=== PATIENT | male | born 1980 | race Caucasian/White ===

== ENCOUNTER 2019-08-16 16:25 | Inpatient (IN) ==
[2019-08-16] MEDS ORDERED: IOPAMIDOL 100 ML BOTTLE IV ONE (16:26)
[2019-08-16] MEDS ORDERED: HYDROmorphone 2 MG/ML VIAL IV ONE (16:54)
[2019-08-16] MEDS ORDERED: 0.9 % SODIUM CHLORIDE 1,000 ML IV ONE (16:54)
[2019-08-16] MEDS ORDERED: ONDANSETRON 4 MG/2 ML VIAL IV ONE ×3 (16:55→19:04)
--- NOTE | 2019-08-16 16:58 | Emergency Department Note ---
Abdominal Pain HPI - General Chief Complaint: Abdominal Pain Stated Complaint: Diverticulitis Time Seen by Provider: 08/16/19 16:51 Source: patient, family Mode of arrival: ambulatory Limitations: no limitations - History of Present Illness HPI Narrative: Patient is a 39-year-old male that comes in the emergency department today by private vehicle. Patient was seen at [facility] August 10, 2019. Patient had a CT scan that showed moderate diverticulitis of the sigmoid colon. On August 10, 2019 patient's white count was 19,000. He was given IV fluids for hydration, IV Dilaudid for pain, IV Zofran for nausea, and discharged from the emergency department with oral Augmentin. Patient reports that he has been taking the Augmentin and hydrocodone for pain at home, and feels that his symptoms are worsening with abdominal pain that he describes as sharp and "my intestines feel like they're going to explode". Patient reports h aving mucoid bloody stools. Patient has had tachycardia. He denies any chest pain, shortness breath, difficulty breathing. Patient rates his pain today 10 out of 10 on a 0-10 numerical pain scale. Patient is not sure as if he has had any fevers at home, but he has felt chilled at times. - Related Data Home Medications Medication Instructions Recorded Confirmed No Known Home Meds 08/16/19 08/16/19 Allergies Allergy/AdvReac Type Severity Reaction Status Date / Time morphine Allergy Severe Rash, Verified 10/02/17 15:16 throat swelling Review of Systems All systems ED: reviewed and negative except as stated. Constitutional: Reports: as per HPI, chills. Denies: fever Eyes: Denies: vision change ENT ED: Denies: ear pain, throat pain Cardiovascular: Reports: as per HPI. Denies: chest pain Respiratory: Denies: cough, shortness of breath Gastrointestinal: Reports: as per HPI, abdominal pain, nausea, hematochezia. Denies: vomiting, diarrhea, constipation Genitourinary: Denies: dysuria, frequency Musculoskeletal: Denies: back pain, joint swelling Integumentary: Denies: rash, lesions Neurological: Denies: headache, weakness Psychiatric: Denies: anxiety, depression Endocrine: Denies: fatigue, heat or cold intolerance Hematological/Lymphatic: Denies: easy bleeding, easy bruising, lymphadenopathy Abdominal Pain PMH - Past Medical History Medical history: Reports: other (diverticulitis) Reports: diverticulitis - Social History Smoking status: Current every day smoker Physical Exam Limitations: no limitations General appearance: alert, grimacing Head: atraumatic, normocephalic Eye: Present: normal appearance ENT: Present: normal oropharynx, mucous membranes moist Neck: Present: normal inspection. Absent: lymphadenopathy Chest: Present: normal inspection, symmetric chest wall rise Respiratory: Present: normal lung sounds bilaterally. Absent: respiratory distress, rales/crackles, wheezes, stridor, accessory muscle use, prolonged expiratory phase Cardiovascular: Present: normal rhythm, tachycardia. Absent: systolic murmur, diastolic murmur Abdominal: Present: soft, tenderness (left lower quadrant), normal bowel sounds. Absent: distention, guarding, rebound, rigidity, organomegaly, mass Abdominal tenderness: Present: LLQ, severe Extremities: Present: normal inspection, full ROM, normal capillary refill. Absent: pedal edema, pretibial edema, calf tenderness Back: Absent: CVA tenderness (R), CVA tenderness (L), spinous process tenderness Neurological: Present: alert, oriented X3 Psychiatric: Present: normal affect, normal mood Skin: Present: warm, dry, normal color Course Vital Signs Temperature 98 F 08/16/19 16:26 Pulse Rate 130 H 08/16/19 16:26 Respiratory Rate 24 H 08/16/19 16:26 Blood Pressure 129/88 08/16/19 16:26 Pulse Oximetry (%) 98 08/16/19 16:26 Temperature 98.3 F 08/16/19 20:43 Pulse Rate 73 08/16/19 20:43 Respiratory Rate 16 08/16/19 20:43 Blood Pressure 116/73 08/16/19 20:43 Pulse Oximetry (%) 94 08/16/19 20:43 Abdominal Pain - MDM Narrative Medical decision making narrative: Patient's white count today is 16.5. CRP is 17.8. Proceed with CT scan of the abdomen that shows diverticulitis. Patient was requiring large amount of Dilaudid for pain management, and requiring repeat doses of pain medication and Zofran for his nausea. Patient received a total of 8 mg of ondansetron IV and 12.5 mg of promethazine. Patient was given a dose of Zosyn IV here in the emergency department. Spoke with Dr. Bolanos today in a patient who will admit patient to [facility] for further management and IV antibiotics. - Lab Data Lab results reviewed: Yes I reviewed the patient's lab results. Result diagrams: 08/16/19 17:11 08/16/19 17:10 Lab Results 08/16/19 08/16/19 08/16/19 Range/Units 17:10 17:11 17:11 WBC 16.5 H (4.50-11.00) K/mcL RBC 5.00 (4.63-6.08) M/mcL Hgb 15.3 (13.7-17.5) g/dL Hct 44.1 (40.1-51.0) % POC Hct 45.0 (41.0-55.0) % MCV 88.2 (80.0-100.0) fL MCH 30.6 (26.0-34.0) pg MCHC 34.7 (31.0-36.0) g/dL RDW 12.8 (11.5-14.5) % Plt Count 244 (140-440) K/mcL MPV 9.9 (7.4-10.4) fL Gran % 79.0 H (38.0-78.0) % Lymph % (Auto) 11.5 L (15.5-49.0) % Sanders % (Auto) 7.5 (1.0-12.0) % Eos % (Auto) 1.9 (0.0-7.0) % Baso % (Auto) 0.1 (0.0-2.0) % Gran # 13.00 H (1.80-8.00) K/mcL Lymph # (Auto) 1.90 (1.50-4.80) K/mcL [place] # (Auto) 1.23 H (0.10-0.90) K/mcL Eos # (Auto) 0.32 (0.00-0.70) K/mcL Baso # (Auto) 0.02 (0.00-0.30) K/mcL VBG Lactic Acid 0.9 (0.5-2.0) mmol/L POC Sodium 137 (133-145) mmol/L Sodium 135 (133-145) mmol/L POC Potassium 3.6 (3.3-5.1) mmol/L Potassium 3.5 (3.3-5.1) mmol/L POC Chloride 104 (96-108) mmol/L Chloride 100 (96-108) mmol/L Carbon Dioxide 19 L (22-30) mmol/L POC Total CO2 22 (22-30) mmol/L Anion Gap 16.0 (8-16) POC BUN 7 (6-20) mg/dl BUN 8 (6-20) mg/dl Creatinine 1.0 (0.7-1.2) mg/dl POC Creatinine 0.9 (0.7-1.2) mg/dl GFR Calculation 93 Glucose 99 (70-105) mg/dL POC Glucose 102 (70-105) mg/dL Calcium 9.5 (8.6-10.4) mg/dl POC WB Ioniz Calcium 1.16 (1.16-1.32) mmol/L Total Bilirubin 0.5 (0.0-1.0) mg/dL AST 16 (0-37) U/l ALT 31 (0-40) U/l Alkaline Phosphatase 80 (39-117) U/L C-Reactive Protein 17.8 H (0.0-0.8) mg/dl Total Protein 7.5 (5.9-8.4) gm/dL Albumin 4.1 (3.2-5.2) gm/dL Globulin 3.4 (2.2-3.7) gm/dL Albumin/Globulin Ratio 1.2 (1.0-2.3) - Radiology Data Ordering Physician: Evan Juan Date of Service: 08/16/19 Procedure(s): CT abdomen pelvis w [facility] Accession Number(s): [id number] CLINICAL INFORMATION: Left lower quadrant pain COMPARISON: [place] abdomen and pelvic CT 08/10/2019. TECHNIQUE: Following enteric contrast, 80 cc of Isovue-370 were injected intravenously, and 60 seconds later, 0.625 mm helical slices were obtained from the mid heart through the subtrochanteric regions. Following reconstruction, 2.5 mm sagittal, coronal and axial reformatted images were processed and reviewed at bone, lung and soft tissue windows. Five minutes later, 0.625 mm helical slices were obtained from the mid heart through the kidneys and viewed at soft tissue windows.The exam was performed using radiation dose optimization techniques including, but not limited to, automated exposure control, adjustment of the mA and/or kV according to patient size and use of iterative reconstruction technique. FINDINGS: Lung bases show no abnormality - no effusion. The visualized heart is normal.6 Abdominal images show minimal fatty change of the liver which are stable. The gallbladder and bile ducts are normal CBD is 6 mm. Both kidneys, adrenal glands, spleen, pancreas and aorta, including aortic branches are normal in size configuration and attenuation without focal lesion. There is no free air, free fluid or adenopathy. Pelvic images show prostate, seminal vesicles and urinary bladder are normal. There is moderate diverticulitis in the mid sigmoid colon - as previously seen. On prior exam, there was a 3 cm abscess in the anterior wall the mid sigmoid colon but this has resolved. There is moderate phlegmon in the perisigmoid fat. A 3.8 cm thin-walled fluid collection between the inflamed sigmoid colon urinary bladder dome has developed which is likely a seroma. The remaining large bowel appendix small bowel and stomach are normal. Bone windows show L5-S1 anterior/posterior fusion changes which are solid and anatomically aligned. IMPRESSION: Moderate mid sigmoid diverticulitis improving moderately since the comparison CT approximately one week ago. Interpreted and Authenticated by: Sid Valdivia 08/16/19 - EKG Data EKG attestation: Yes There are no EKG findings of acute coronary syndrome, Yes This EKG will be read by elementary assistant teacher EKG shows normal: sinus rhythm Rate: tachycardia Disposition Pt seen by VETERINARY INSPECTOR/PA only: Yes Clinical Impression: Diverticulitis Disposition: Xfer As Inpt ([facility]) Condition: Fair
[2019-08-16 17:19] LABS: POC Blood Urea Nitrogen 7 mg/dl (6-20); POC CO2 22 mmol/L (22-30); POC Calcium, Ionized 1.16 mmol/L (1.16-1.32); POC Chloride 104 mmol/L (96-108); POC Creatinine 0.9 mg/dl (0.7-1.2); POC Glucose, Random 102 mg/dL (70-105); POC Potassium 3.6 mmol/L (3.3-5.1); POC Sodium 137 mmol/L (133-145)
[2019-08-16 17:46] LABS: Basophils # (Auto) 0.02 K/mcL (0.00-0.30); Basophils % (Auto) 0.1 % (0.0-2.0); Eosinophils # (Auto) 0.32 K/mcL (0.00-0.70); Eosinophils % (Auto) 1.9 % (0.0-7.0); Hematocrit 44.1 % (40.1-51.0); Hemoglobin 15.3 g/dL (13.7-17.5); Lymphocytes % (Auto) 11.5 % (15.5-49.0); Mean Cell Volume 88.2 fL (80.0-100.0); Mean Corpuscular HGB Conc 34.7 g/dL (31.0-36.0); Mean Platelet Volume 9.9 fL (7.4-10.4); Monocytes # (Auto) 1.23 K/mcL (0.10-0.90); Monocytes % (Auto) 7.5 % (1.0-12.0); Platelet Count 244 K/mcL (140-440); Red Cell Distribution Width 12.8 % (11.5-14.5); WBC 16.5 K/mcL (4.50-11.00)
[2019-08-16 18:08] LABS: ALT/SGPT 31 U/l (0-40); AST/SGOT 16 U/l (0-37); Albumin 4.1 gm/dL (3.2-5.2); Albumin/Globulin Ratio 1.2 (1.0-2.3); Alkaline Phosphatase 80 U/L (39-117); Bilirubin,Total 0.5 mg/dL (0.0-1.0); Blood Urea Nitrogen 8 mg/dl (6-20); C-Reactive Protein 17.8 mg/dl (0.0-0.8); Calcium 9.5 mg/dl (8.6-10.4); Carbon Dioxide 19 mmol/L (22-30); Chloride 100 mmol/L (96-108); Globulin 3.4 gm/dL (2.2-3.7); Glomerular Filtration Rate 93; Glucose 99 mg/dL (70-105)
[2019-08-16] MEDS ORDERED: HYDROmorphone 2 MG/ML VIAL IV SCH ×3 (18:15→20:15)
--- NOTE | 2019-08-16 18:54 | Cat Scan Report ---
CLINICAL INFORMATION: Left lower quadrant pain COMPARISON: [place] abdomen and pelvic CT 08/10/2019. TECHNIQUE: Following enteric contrast, 80 cc of Isovue-370 were injected intravenously, and 60 seconds later, 0.625 mm helical slices were obtained from the mid heart through the subtrochanteric regions. Following reconstruction, 2.5 mm sagittal, coronal and axial reformatted images were processed and reviewed at bone, lung and soft tissue windows. Five minutes later, 0.625 mm helical slices were obtained from the mid heart through the kidneys and viewed at soft tissue windows.The exam was performed using radiation dose optimization techniques including, but not limited to, automated exposure control, adjustment of the mA and/or kV according to patient size and use of iterative reconstruction technique. FINDINGS: Lung bases show no abnormality - no effusion. The visualized heart is normal.6 Abdominal images show minimal fatty change of the liver which are stable. The gallbladder and bile ducts are normal CBD is 6 mm. Both kidneys, adrenal glands, spleen, pancreas and aorta, including aortic branches are normal in size configuration and attenuation without focal lesion. There is no free air, free fluid or adenopathy. Pelvic images show prostate, seminal vesicles and urinary bladder are normal. There is moderate diverticulitis in the mid sigmoid colon - as previously seen. On prior exam, there was a 3 cm abscess in the anterior wall the mid sigmoid colon but this has resolved. There is moderate phlegmon in the perisigmoid fat. A 3.8 cm thin-walled fluid collection between the inflamed sigmoid colon urinary bladder dome has developed which is likely a seroma. The remaining large bowel appendix small bowel and stomach are normal. Bone windows show L5-S1 anterior/posterior fusion changes which are solid and anatomically aligned. IMPRESSION: Moderate mid sigmoid diverticulitis improving moderately since the comparison CT approximately one week ago. Interpreted and Authenticated by: Sid Valdivia 08/16/19
[2019-08-16] MEDS ORDERED: PIPERACILLIN SODIUM/TAZOBACTAM 3.375 GM in DEXTROSE 5% IN WATER 50 ML IV ONE (19:04)
--- NOTE | 2019-08-16 19:53 | Internal Med History&Physical ---
Medical - H&P: [facility] Patient information: Note initiated : 08/16/19 at 7:50 pm Service Date, if different from initiated Date: [] Patient: Oziel Kraft a 39 y/o M admitted on for Diverticulitis. Chief Complaint: [] History of present illness: Mr. Kraft is a 39 year old M Who presents the ED with lower abdominal pain. Patient states he was diagnosed with diverticulitis on the eighth and given antibiotics and pain medications. His white blood cell count at that time was 19,000. He returned to [facility] yesterday because of increased abdominal pain. White blood cell count at that time was 15.7. He was released and states that increased abdominal pain again and presents to our ER. His white blood cell count is 16.5. He is afebrile he was tachycardic initially, improved with IV fluids. He has been taken Augmentin. He had headache fever chills nausea. He has mucousy brown diarrhea with some blood. Repeat CT abdomen revealed moderate mid sigmoid diverticulitis with some impro vement since the previous CT. Also shows resolution of a 3 cm abscess which was apparent on the previous ED. Patient unable to control pain at home and poor oral intake. Reports the pain is lower mid to left. It is constant dull ache and intermittent sharp pain. Review of Systems: Pertinent positives as above. Denies vomiting/chestpain/cough/dyspnea. Remaining 10 point review of system reviewed negative Medical - H&P: PMH Medical history: Medical History (Last Reviewed 10/02/17 @ 15:17 by Katherine Caldwell RN) Lumbar back pain (Chronic) Sprained ankle (Chronic) Left hydrocele (Chronic) Swelling of left testicle (Chronic) Pain in left testicle (Chronic) Past Surgical History (Last Reviewed 10/02/17 @ 15:17 by Katherine Caldwell RN) History of back surgery (Acute) History of left shoulder replacement (Acute) History of surgery (Acute) Hx of hand surgery (Acute) No pertinent past surgical history (Inactive) Family History (Last Reviewed 10/02/17 @ 15:17 by Katherine Caldwell RN) Grandmother Breast cancer Heart disease Other Hypertension Social History (Last Updated 10/02/17 @ 15:17 by Anthony Tsai MD) Smokes half pack cigarettes per day Drinks alcohol socially Lives home with Medical - H&P: Meds Home Medications Medication Instructions Recorded Confirmed Type oxycodone-acetaminophen 5 mg-325 1 tab PO Q4H #30 tab 09/11/17 10/02/17 Rx mg tablet Ibuprofen [Motrin] 1,000 mg PO HS 09/12/17 10/02/17 History Allergies Allergy/AdvReac Type Severity Reaction Status Date / Time morphine Allergy Severe Rash, Verified 10/02/17 15:16 throat swelling Medical - H&P: Exam - Constitutional Vitals: Temp Pulse Resp BP Pulse Ox 98 F 80 20 117/76 98 08/16/19 16:26 08/16/19 19:02 08/16/19 18:16 08/16/19 19:02 08/16/19 19:02 Exam: General: Alert, Awake, mild distress from pain Eyes/N/T: EOMI, PERRL, dry MM Head/Neck: neck supple, normocephalic atraumatic CV: RRR, No murmurs, normal s1/s2 Pulm: Clear b/l, no wheezing/rhonchi/rales Abd: soft, tender to palpation lower quadrants more on the left, +BS x4 Ext: no clubbing/cyanosis/edema Neuro: Alert, no focal deficits, moves all extremities, CN 2-12 grossly intact, symmetrical strength b/l upper/lower, sensations intact b/l upper/lower Skin: warm/dry Medical - H&P: Reslt - Labs CBC & Chem 7: 08/16/19 17:11 08/16/19 17:10 Labs: Short CBC 08/16/19 Range/Units 17:11 WBC 16.5 H (4.50-11.00) K/mcL Hgb 15.3 (13.7-17.5) g/dL Hct 44.1 (40.1-51.0) % Plt Count 244 (140-440) K/mcL BMP 08/16/19 17:10 Sodium 135 Potassium 3.5 Chloride 100 Carbon Dioxide 19 L BUN 8 Creatinine 1.0 Glucose 99 Calcium 9.5 Liver Function 08/16/19 Range/Units 17:10 Total Bilirubin 0.5 (0.0-1.0) mg/dL AST 16 (0-37) U/l ALT 31 (0-40) U/l Alkaline Phosphatase 80 (39-117) U/L Albumin 4.1 (3.2-5.2) gm/dL Medical - H&P: A/P - Narrative A/P Narrative: A: *Acute diverticulitis with severe abdominal pain: *SIRS: *Tobacco abuse: * P: -Zosyn -IVF's -pain control and antiemetics - -Smoking cessation counseling -ppx: lovenox
[2019-08-16] MEDS ORDERED: PROMETHAZINE 25 MG/ML VIAL IV ONE (20:08)
[2019-08-16] MEDS ORDERED: PROCHLORPERAZINE 10 MG/2 ML VIAL IV PRN (20:49)
[2019-08-16] MEDS ORDERED: ACETAMINOPHEN 325 MG TABLET PO PRN (20:49)
[2019-08-16] MEDS ORDERED: POTASSIUM CHLORIDE 20 MEQ TABLET PO PRN ×2 (20:49)
[2019-08-16] MEDS ORDERED: diphenhydrAMINE 25 MG CAPSULE PO PRN (20:49)
[2019-08-16] MEDS ORDERED: MAGNESIUM SULFATE 2 GM/50 ML BAG IV PRN (20:49)
[2019-08-16] MEDS ORDERED: PROMETHAZINE 25 MG/ML VIAL IV PRN (20:49)
[2019-08-16] MEDS ORDERED: POTASSIUM CHLORIDE 40 MEQ in DEXTROSE 5% IN WATER 500 ML IV PRN (20:49)
[2019-08-16] MEDS ORDERED: POLYETHYLENE GLYCOL 3350 17 GM PACKET PO PRN (20:49)
[2019-08-16] MEDS: ONDANSETRON 4 MG/2 ML VIAL IV PRN (21:25)
[2019-08-16] MEDS: HYDROmorphone 2 MG/ML VIAL IV PRN ×2 (21:28→23:26)
[2019-08-16] MEDS: 0.9 % SODIUM CHLORIDE 10 ML SYRINGE IV SCH (21:29)
[2019-08-16] MEDS: 0.9 % SODIUM CHLORIDE 1,000 ML IV SCH (21:30)
[2019-08-16] MEDS: MELATONIN 3 MG TABLET PO SCH (22:45)
[2019-08-17] MEDS: PIPERACILLIN SODIUM/TAZOBACTAM 3.375 GM in DEXTROSE 5% IN WATER 50 ML IV SCH ×5 (00:25→23:22)
[2019-08-17] MEDS: 0.9 % SODIUM CHLORIDE 10 ML SYRINGE IV SCH ×3 (04:07→20:31)
[2019-08-17] MEDS: HYDROmorphone 2 MG/ML VIAL IV PRN ×8 (06:03→22:34)
[2019-08-17] MEDS: ONDANSETRON 4 MG/2 ML VIAL IV PRN ×2 (06:04→22:21)
[2019-08-17 06:32] LABS: Hematocrit 39.5 % (40.1-51.0); Hemoglobin 13.2 g/dL (13.7-17.5); Mean Cell Volume 90.6 fL (80.0-100.0); Mean Corpuscular HGB Conc 33.4 g/dL (31.0-36.0); Mean Platelet Volume 10.1 fL (7.4-10.4); Platelet Count 204 K/mcL (140-440); RBC 4.36 M/mcL (4.63-6.08); Red Cell Distribution Width 12.9 % (11.5-14.5); WBC 14.3 K/mcL (4.50-11.00)
[2019-08-17 06:54] LABS: Bilirubin,Direct < 0.2 mg/dL (0.0-0.3); Chloride 102 mmol/L (96-108)
[2019-08-17 07:02] LABS: ALT/SGPT 24 U/l (0-40); AST/SGOT 15 U/l (0-37); Albumin 3.6 gm/dL (3.2-5.2); Albumin/Globulin Ratio 1.2 (1.0-2.3); Alkaline Phosphatase 66 U/L (39-117); Bilirubin,Total 0.4 mg/dL (0.0-1.0); Blood Urea Nitrogen 8 mg/dl (6-20); C-Reactive Protein 21.1 mg/dl (0.0-0.8); Carbon Dioxide 24 mmol/L (22-30); Globulin 2.9 gm/dL (2.2-3.7); Glomerular Filtration Rate 83; Glucose 89 mg/dL (70-105); Lactate Dehydrogenase 155 U/L (94-250); Phosphorous 3.2 mg/dL (2.7-4.5); Triglycerides 118 mg/dl (<150)
[2019-08-17 07:32] LABS: Band Neutrophils % 2 % (0-10); Eosinophils % (Manual) 2 % (0-7); Lymphocytes % 14 % (15-49); Monocytes % (Manual) 9 % (1-12); Platelet Estimate NORMAL (NORMAL); RBC Morphology NORMAL (NORMAL); Reactive Lymphocytes 2 % (0-2); Segmented Neutrophils % 71 % (38-78)
[2019-08-17] MEDS: 0.9 % SODIUM CHLORIDE 1,000 ML IV SCH (07:57)
--- NOTE | 2019-08-17 08:03 | Internal Med Progress Note ---
Medical - PN: Subj Patient information: Note initiated : 08/17/19 at 7:59 am Service Date, if different from initiated Date: [] Patient: Oziel Kraft a 39 y/o M admitted on 08/16/19 for Diverticulitis. Chief Complaint: [] Interval history: Mr. Kraft is a 39 year old M Who presents the ED with lower abdominal pain. Patient states he was diagnosed with diverticulitis on the eighth and given antibiotics and pain medications. His white blood cell count at that time was 19,000. He returned to [facility] yesterday because of increased abdominal pain. White blood cell count at that time was 15.7. He was released and states that increased abdominal pain again and presents to our ER. His white blood cell count is 16.5. He is afebrile he was tachycardic initially, improved with IV fluids. He has been taken Augmentin. He had headache fever chills nausea. He has mucousy brown diarrhea with some blood. Repeat CT abdomen revealed moderate mid sigmoid diverticulitis with some improv ement since the previous CT. Also shows resolution of a 3 cm abscess which was apparent on the previous ED. Patient unable to control pain at home and poor oral intake. Reports the pain is lower mid to left. It is constant dull ache and intermittent sharp pain. 3/15 Poor sleep last night. Feels a little better with some improved abdominal pain but is on pain medications. Tired. Some nausea and headache. Has some chills little bit in the night. Review of Systems: denies vomiting/chest pain/cough/dyspnea. Otherwise see above. - Constitutional Vitals: Vital Signs Temp Pulse Resp BP Pulse Ox 98.7 F 80 16 109/68 94 08/17/19 07:01 08/17/19 07:01 08/17/19 07:01 08/17/19 07:01 08/17/19 07:01 Period Temp Pulse Resp BP Sys/[place] Pulse Ox Last 24 Hr 98 F-98.8 F 72-130 16-24 102-137/59-122 89-99 Intake and Output 08/16/19 08/17/19 08/17/19 21:59 05:59 13:59 Intake Total 5646 257 5549 Output Total 125 650 Balance 1050 285 350 Weight 90.673 kg Intake & Output: Intake & Output 03/14/20 03/15/20 03/15/20 21:59 05:59 13:59 Intake Total 0622 149 2445 Output Total 125 650 Balance 1050 285 350 Weight 90.673 kg Intake: IV 1050 50 1000 Sodium Chloride 0.9% 1,000 ml @ 1000 1000 100 mls/hr IV .Q10H [facility] Rx#: [id number] Zosyn 3.375 gm In Dextrose 5% 50 50 in Water 50 ml @ 100 mls/hr IV Q6H [facility] Rx#:[id number] Oral 360 Output: Void Amount 125 650 Other: Urine Appearance Clear Clear Urine Color Dark Yellow Dark Yellow Urine Odor Strong Normal Stool Color Blood Tinged Stool Consistency Liquid # Emeses 0 Exam: General: Alert, Awake, no acute distress Eyes/N/T: EOMI, Head/Neck: neck supple, CV: RRR, No murmurs, Pulm: Clear b/l, no wheezing/rhonchi/rales Abd: soft, tender to palpation lower quadrants more on the left, +BS x4 Ext: no clubbing/cyanosis/edema Neuro: Alert, no focal deficits, moves all extremities, Skin: warm/dry Medical - PN: Obj Da - Labs CBC & Chem 7: 08/17/19 05:04 08/17/19 05:04 Labs: Abnormal Lab Results 08/17/19 08/17/19 08/16/19 05:04 05:04 17:11 WBC 14.3 H 16.5 H RBC 4.36 L Hgb 13.2 L Hct 39.5 L Gran % 79.0 H Lymph % (Auto) 11.5 L Gran # 13.00 H [place] # (Auto) 1.23 H Lymphocytes % 14 L Carbon Dioxide C-Reactive Protein 21.1 H 08/16/19 17:10 WBC RBC Hgb Hct Gran % Lymph % (Auto) Gran # [place] # (Auto) Lymphocytes % Carbon Dioxide 19 L C-Reactive Protein 17.8 H Meds: Medications Acetaminophen (Tylenol) 650 mg PO Q6HP PRN PRN Reason: PAIN/FEVER > 101 Hydrocodone Bitart/Acetaminophen ([place] 5/325mg) 1 tab PO Q4HP PRN PRN Reason: PAIN LEVEL 3-6 Diphenhydramine HCl (Benadryl) 25 mg PO HSP PRN PRN Reason: Insomnia Enoxaparin Sodium (Lovenox) 40 mg SQ DAILY [facility] Hydromorphone HCl (Dilaudid) 1 mg IV ONCE [facility]; Protocol Last Admin: 08/16/19 20:12 Dose: 1 mg Documented by: Hydromorphone HCl (Dilaudid) 0 mg IV Q2HP PRN PRN Reason: Pain Last Admin: 08/17/19 06:03 Dose: 1 mg Documented by: Potassium Chloride 40 meq/ (Dextrose) 520 mls @ 130 mls/hr IV UD PRN PRN Reason: Potassium < 3 Magnesium Sulfate (Magnesium Sulfate) 2 gm in 50 mls @ 50 mls/hr IV UD PRN PRN Reason: Magnesium </= 1.6 Sodium Chloride (Sodium Chloride 0.9%) 1,000 mls @ 100 mls/hr IV .Q10H [facility] Stop: 08/17/19 16:48 Last Admin: 08/17/19 07:57 Dose: 100 mls/hr Documented by: Piperacillin Sod/Tazobactam (Sod 3.375 gm/ Dextrose) 50 mls @ 100 mls/hr IV Q6H [facility]; Protocol Last Admin: 08/17/19 06:00 Dose: 100 mls/hr Documented by: Melatonin (Melatonin 3mg Tablet) 3 mg PO QHS [facility] Last Admin: 08/16/19 22:45 Dose: Not Given Documented by: Ondansetron HCl (Zofran) 4 mg IV Q4HP PRN PRN Reason: Nausea And Vomiting Last Admin: 08/17/19 06:04 Dose: 4 mg Documented by: Polyethylene Glycol (Miralax) 17 gm PO DAILYP PRN PRN Reason: Constipation Potassium Chloride (Kdur) 40 meq PO UD PRN PRN Reason: Potssium is 3-3.5 Potassium Chloride (Kdur) 40 meq PO UD PRN PRN Reason: Potassium < 3 Prochlorperazine (Compazine) 10 mg IV Q6HP PRN PRN Reason: Nausea And Vomiting Last Admin: 08/16/19 23:26 Dose: 10 mg Documented by: Promethazine HCl (Phenergan) 12.5 mg IV Q6HP PRN PRN Reason: Nausea And Vomiting Sodium Chloride (Saline Flush) 10 ml IV Q8 [facility] Last Admin: 08/17/19 04:07 Dose: Not Given Documented by: Medical - PN: A/P - Time Spent With Patient Total time spent is greater than 50% in coordination of care (as documented) at patient's floor/unit and/or counseling patient: - Narrative A/P Narrative: A: *Acute diverticulitis with severe abdominal pain: -leukocytosis improving, no bandemia *Diarrhea on admit: *SIRS: improving *Tobacco abuse: P: -Zosyn -IVF's -pain control and antiemetics -clear liquids, advance as tolerated -Smoking cessation counseling -ppx: lovenox Medical - PN: Qual - Stroke Symptom Onset Unknown: No - VTE Deep Vein Thrombosis/Pulmonary Embolism Present on Admission: No
[2019-08-17] MEDS: ENOXAPARIN 40 MG/0.4 ML SYRINGE SQ SCH ×2 (15:29→17:53)
--- NOTE | 2019-08-17 17:49 | General Surgery Consult Note ---
History of Present Illness Patient information: Note initiated : 08/17/19 at 5:44 pm Service Date, if different from initiated Date: [] Patient: Oziel Kraft 39 y/o M admitted on 08/16/19 for Diverticulitis. Chief Complaint: [] Reason for consult: other (recurrent abdominal pain with bloody diarrhea) Requesting physician: Renny Bolanos History of present illness: 39-year-old male admitted with suspected diverticulitis with bloody diarrhea. The patient presented to [facility] on 09 August with right lower quadrant pain and pelvic pain. He was noted to have a white blood count 19,000. CT exam revealed a small pelvic abscess and inflammation of the sigmoid colon compatible with diverticulitis. He was treated with Augmentin but did not have much improvement over the next 6 days. He was seen in the emergency room on Sunday at [facility]. It was noted that his white count was down to 15,700. He was again treated with oral antibiotics and released. Because the patient did not improve. He returned to our emergency room last evening. White blood count was 16,500. CT shows resolution of the previously seen abscess, but a new collection of fluid in the pelvis between the sigmoid colon and the bladder that may represent a seroma. The patient states that he has had 12 bowel movements with blood and mucus he's had increased diarrhea. He has been admitted and started on IV antibiotics. He will be treated for a minimum of 4-5 days after which he will have follow-up CT of the abdomen to make sure that he is improving. If he shows improvement he can probably be discharged home on ciprofloxacin and metronidazole. This can be continued for 2-3 weeks. At the end of 2-3 weeks. A follow-up CT should be done. Also at that time he should be scheduled colonoscopy because of prior history of colon cancer in his family. Review of Systems - Constitutional fever(s), malaise, weakness - EENT Nose, mouth and throat: headache(s), no vertigo - Cardiovascular dyspnea on exertion, no pedal edema, no rapid heart rate - Respiratory no cough, no dyspnea, no dyspnea on exertion, no wheezing - Gastrointestinal abdominal pain, bloating, change in bowel habits (9. No), cramping, no nausea - Genitourinary urinary hesitancy, urinary urgency - Musculoskeletal arthralgias, no myalgias - Integumentary no changing lesions, no non-healing lesions, no pruritus, no rash - Neurological headache(s), no abnormal hearing, no focal weakness, no weakness - Psychiatric no anxiety, no depression - Endocrine fatigue, palpitations - Hematologic/Lymphatic no easy bleeding, no easy bruising, no lymphadenopathy - Allergic/Immunologic no tongue swelling, no throat swelling, no uticaria, no wheezing, no lip swelling Past History Past medical history: No chronic medical illnesses. The patient does not see a physician regularly Past surgical history: Lumbar surgery with fusion 2009 Total shoulder replacement left. 2016 Repair of traumatic injury left hand. OTIF right ankle due to traumatic injury Past family history: Grandmother with breast cancer, colon cancer, coronary artery disease. Multiple family members with hypertension Past social history: Daily smoker, at least one half pack per day. Frequent alcohol use Denies drug use. Employed Medications and Allergies Home Medications Medication Instructions Recorded Confirmed Type No Known Home Meds 08/16/19 08/16/19 History Allergies Allergy/AdvReac Type Severity Reaction Status Date / Time morphine Allergy Severe Rash, Verified 10/02/17 15:16 throat swelling Exam Temp Pulse Resp BP Pulse Ox 97.2 F 75 16 118/77 97 08/17/19 16:00 08/17/19 16:00 08/17/19 16:00 08/17/19 16:00 08/17/19 16:00 - General physical appearance well developed, well nourished, moderate distress, moderate pain - Eyes PERRL, normal ocular movement - ENT normal pinna, normal nares, normal mucosa, no hearing loss, no congestion - Head Head exam IM: Present: atraumatic, normocephalic - Neck no masses, no bruits, trachea midline, no lymphadenopathy, no venous distension - Cardiovascular Cardiovascular exam IM: Present: normal rate and rhythm - Respiratory normal expansion, normal respiratory effort, clear to percussion, clear to auscultation - Abdomen Abdomen: Present: soft, tender (diffusely tender lower abdomen, much worse on left than on the right; distended, work with active bowel sounds), bowel sounds Hernia: Present: none - Genitourinary Present: normal penis with no external lesions - Integumentary Present: no rash, no growths, no abnormal pigmentation - Neurologic Present: normal coordination, normal sensation - Musculoskeletal Present: normal gait, normal posture - Psychiatric Present: oriented to time, oriented to person, oriented to place, speech is normal, memory intact Results - Labs 08/17/19 05:04 08/17/19 05:04 Abnormal lab results 08/16/19 08/16/19 08/17/19 Range/Units 17:10 17:11 05:04 WBC 16.5 H 14.3 H (4.50-11.00) K/mcL RBC 4.36 L (4.63-6.08) M/mcL Hgb 13.2 L (13.7-17.5) g/dL Hct 39.5 L (40.1-51.0) % Gran % 79.0 H (38.0-78.0) % Lymph % (Auto) 11.5 L (15.5-49.0) % Gran # 13.00 H (1.80-8.00) K/mcL [place] # (Auto) 1.23 H (0.10-0.90) K/mcL Lymphocytes % 14 L (15-49) % Carbon Dioxide 19 L (22-30) mmol/L C-Reactive Protein 17.8 H (0.0-0.8) mg/dl 08/17/19 Range/Units 05:04 WBC (4.50-11.00) K/mcL RBC (4.63-6.08) M/mcL Hgb (13.7-17.5) g/dL Hct (40.1-51.0) % Gran % (38.0-78.0) % Lymph % (Auto) (15.5-49.0) % Gran # (1.80-8.00) K/mcL [place] # (Auto) (0.10-0.90) K/mcL Lymphocytes % (15-49) % Carbon Dioxide (22-30) mmol/L C-Reactive Protein 21.1 H (0.0-0.8) mg/dl Diabetes panel 08/16/19 08/17/19 Range/Units 17:10 05:04 Sodium 135 141 (133-145) mmol/L Potassium 3.5 3.7 (3.3-5.1) mmol/L Chloride 100 102 (96-108) mmol/L Carbon Dioxide 19 L 24 (22-30) mmol/L BUN 8 8 (6-20) mg/dl Creatinine 1.0 1.1 (0.7-1.2) mg/dl Glucose 99 89 (70-105) mg/dL Calcium 9.5 9.0 (8.6-10.4) mg/dl AST 16 15 (0-37) U/l ALT 31 24 (0-40) U/l Alkaline Phosphatase 80 66 (39-117) U/L Total Protein 7.5 6.5 (5.9-8.4) gm/dL Albumin 4.1 3.6 (3.2-5.2) gm/dL Triglycerides 118 (<150) mg/dl Calcium panel 08/16/19 08/17/19 Range/Units 17:10 05:04 Calcium 9.5 9.0 (8.6-10.4) mg/dl Phosphorus 3.2 (2.7-4.5) mg/dL Albumin 4.1 3.6 (3.2-5.2) gm/dL Pituitary panel 08/16/19 08/17/19 Range/Units 17:10 05:04 Sodium 135 141 (133-145) mmol/L Potassium 3.5 3.7 (3.3-5.1) mmol/L Chloride 100 102 (96-108) mmol/L Carbon Dioxide 19 L 24 (22-30) mmol/L BUN 8 8 (6-20) mg/dl Creatinine 1.0 1.1 (0.7-1.2) mg/dl Glucose 99 89 (70-105) mg/dL Calcium 9.5 9.0 (8.6-10.4) mg/dl Adrenal panel 08/16/19 08/17/19 Range/Units 17:10 05:04 Sodium 135 141 (133-145) mmol/L Potassium 3.5 3.7 (3.3-5.1) mmol/L Chloride 100 102 (96-108) mmol/L Carbon Dioxide 19 L 24 (22-30) mmol/L BUN 8 8 (6-20) mg/dl Creatinine 1.0 1.1 (0.7-1.2) mg/dl Glucose 99 89 (70-105) mg/dL Calcium 9.5 9.0 (8.6-10.4) mg/dl Total Bilirubin 0.5 0.4 (0.0-1.0) mg/dL AST 16 15 (0-37) U/l ALT 31 24 (0-40) U/l Alkaline Phosphatase 80 66 (39-117) U/L Total Protein 7.5 6.5 (5.9-8.4) gm/dL Albumin 4.1 3.6 (3.2-5.2) gm/dL All other labs normal. Assessment and Plan (1) Acute diverticulitis of intestine Patient will be treated with IV antibiotics in the hospital with follow-up CT. He will then be discharged home after confirmation that his inflammation is improving. He may or may not need IV antibiotics at home. He will have follow- up CT of abdomen and pelvis in 2-3 weeks. Status: Acute (2) Bloody diarrhea Follow-up colonoscopy to be performed after confirmation that his diverticulitis is adequately controlled. Status: Acute
[2019-08-17] MEDS: MELATONIN 3 MG TABLET PO SCH (20:31)
[2019-08-18] MEDS: HYDROmorphone 2 MG/ML VIAL IV PRN ×8 (01:27→19:56)
[2019-08-18] MEDS: 0.9 % SODIUM CHLORIDE 10 ML SYRINGE IV SCH ×5 (04:12→20:41)
[2019-08-18] MEDS: PIPERACILLIN SODIUM/TAZOBACTAM 3.375 GM in DEXTROSE 5% IN WATER 50 ML IV SCH ×3 (06:11→18:17)
[2019-08-18 06:36] LABS: Basophils # (Auto) 0.03 K/mcL (0.00-0.30); Basophils % (Auto) 0.2 % (0.0-2.0); Eosinophils # (Auto) 0.33 K/mcL (0.00-0.70); Eosinophils % (Auto) 2.7 % (0.0-7.0); Granulocytes % (Auto) 66.3 % (38.0-78.0); Hematocrit 37.9 % (40.1-51.0); Hemoglobin 12.6 g/dL (13.7-17.5); Lymphocytes # (Auto) 2.67 K/mcL (1.50-4.80); Lymphocytes % (Auto) 22.2 % (15.5-49.0); Mean Cell Volume 90.5 fL (80.0-100.0); Mean Corpuscular HGB Conc 33.2 g/dL (31.0-36.0); Monocytes # (Auto) 1.04 K/mcL (0.10-0.90); Monocytes % (Auto) 8.6 % (1.0-12.0); Platelet Count 212 K/mcL (140-440); RBC 4.19 M/mcL (4.63-6.08); Red Cell Distribution Width 12.8 % (11.5-14.5); WBC 12.1 K/mcL (4.50-11.00)
--- NOTE | 2019-08-18 07:43 | Internal Med Progress Note ---
Medical - PN: Subj Patient information: Note initiated : 08/18/19 at 7:41 am Service Date, if different from initiated Date: [] Patient: Oziel Kraft a 39 y/o M admitted on 08/16/19 for Diverticulitis. Chief Complaint: [] Interval history: Mr. Kraft is a 39 year old M Who presents the ED with lower abdominal pain. Patient states he was diagnosed with diverticulitis on the eighth and given antibiotics and pain medications. His white blood cell count at that time was 19,000. He returned to [facility] yesterday because of increased abdominal pain. White blood cell count at that time was 15.7. He was released and states that increased abdominal pain again and presents to our ER. His white blood cell count is 16.5. He is afebrile he was tachycardic initially, improved with IV fluids. He has been taken Augmentin. He had headache fever chills nausea. He has mucousy brown diarrhea with some blood. Repeat CT abdomen revealed moderate mid sigmoid diverticulitis with some improv ement since the previous CT. Also shows resolution of a 3 cm abscess which was apparent on the previous ED. Patient unable to control pain at home and poor oral intake. Reports the pain is lower mid to left. It is constant dull ache and intermittent sharp pain. 08/16 Poor sleep last night. Feels a little better with some improved abdominal pain but is on pain medications. Tired. Some nausea and headache. Has some chills little bit in the night. 08/17 No nausea vomiting this morning. Poor sleep last night. Facial headache. No bowel movement since he arrived but states he is passing gas with pain. Seen by Dr. Wilson yesterday. may repeat imaging later. Review of Systems: denies vomiting/chest pain/cough/dyspnea. Otherwise see above. - Constitutional Vitals: Vital Signs Temp Pulse Resp BP Pulse Ox 98.2 F 72 20 140/87 94 08/18/19 07:30 08/18/19 07:30 08/18/19 04:00 08/18/19 07:30 08/18/19 07:30 Period Temp Pulse Resp BP Sys/[place] Pulse Ox Last 24 Hr 97.2 F-98.2 F 70-75 107-140/68-87 94-97 Intake and Output 08/17/19 08/18/19 08/18/19 21:59 05:59 13:59 Intake Total 1650 850 Output Total 700 1850 700 Balance 950 -1000 -700 Weight 91.081 kg Intake & Output: Intake & Output 08/17/19 08/18/19 08/18/19 21:59 05:59 13:59 Intake Total 1650 850 Output Total 700 1850 700 Balance 950 -1000 -700 Weight 91.081 kg Intake: IV 1050 50 Sodium Chloride 0.9% 1,000 ml @ 1000 100 mls/hr IV .Q10H [facility] Rx#: [id number] Zosyn 3.375 gm In Dextrose 5% 50 50 in Water 50 ml @ 100 mls/hr IV Q6H [facility] Rx#:[id number] Oral 600 800 Output: Void Amount 700 1850 700 Other: Meal Lunch Urine Appearance Clear Clear Urine Color Dark Yellow Bright Yellow Urine Odor Normal # Voids 4 Exam: General: Alert, Awake, no acute distress Eyes/N/T: EOMI, Head/Neck: neck supple, CV: RRR, No murmurs, Pulm: Clear b/l, no wheezing/rhonchi/rales Abd: soft, tender to palpation lower quadrants more on the left, +BS x4 Ext: no clubbing/cyanosis/edema Neuro: Alert, no focal deficits, moves all extremities, Skin: warm/dry Medical - PN: Obj Da - Labs CBC & Chem 7: 08/18/19 05:28 08/17/19 05:04 Labs: Abnormal Lab Results 08/18/19 08/18/19 08/17/19 05:28 05:28 05:04 WBC 12.1 H RBC 4.19 L Hgb 12.6 L Hct 37.9 L Gran % Lymph % (Auto) Gran # [place] # (Auto) 1.04 H Lymphocytes % Carbon Dioxide C-Reactive Protein 20.0 H 21.1 H 08/17/19 08/16/19 08/16/19 05:04 17:11 17:10 WBC 14.3 H 16.5 H RBC 4.36 L Hgb 13.2 L Hct 39.5 L Gran % 79.0 H Lymph % (Auto) 11.5 L Gran # 13.00 H [place] # (Auto) 1.23 H Lymphocytes % 14 L Carbon Dioxide 19 L C-Reactive Protein 17.8 H Meds: Medications Acetaminophen (Tylenol) 650 mg PO Q6HP PRN PRN Reason: PAIN/FEVER > 101 Hydrocodone Bitart/Acetaminophen ([place] 5/325mg) 1 tab PO Q4HP PRN PRN Reason: PAIN LEVEL 3-6 Diphenhydramine HCl (Benadryl) 25 mg PO HSP PRN PRN Reason: Insomnia Enoxaparin Sodium (Lovenox) 40 mg SQ DAILY [facility] Last Admin: 08/17/19 17:53 Dose: 40 mg Documented by: Hydromorphone HCl (Dilaudid) 0 mg IV Q2HP PRN PRN Reason: Pain Last Admin: 08/18/19 06:59 Dose: 1 mg Documented by: Potassium Chloride 40 meq/ (Dextrose) 520 mls @ 130 mls/hr IV UD PRN PRN Reason: Potassium < 3 Magnesium Sulfate (Magnesium Sulfate) 2 gm in 50 mls @ 50 mls/hr IV UD PRN PRN Reason: Magnesium </= 1.6 Piperacillin Sod/Tazobactam (Sod 3.375 gm/ Dextrose) 50 mls @ 100 mls/hr IV Q6H [facility]; Protocol Last Admin: 08/18/19 06:11 Dose: 100 mls/hr Documented by: Melatonin (Melatonin 3mg Tablet) 3 mg PO QHS [facility] Last Admin: 08/17/19 20:31 Dose: 3 mg Documented by: Ondansetron HCl (Zofran) 4 mg IV Q4HP PRN PRN Reason: Nausea And Vomiting Last Admin: 08/17/19 22:21 Dose: 4 mg Documented by: Polyethylene Glycol (Miralax) 17 gm PO DAILYP PRN PRN Reason: Constipation Potassium Chloride (Kdur) 40 meq PO UD PRN PRN Reason: Potssium is 3-3.5 Potassium Chloride (Kdur) 40 meq PO UD PRN PRN Reason: Potassium < 3 Prochlorperazine (Compazine) 10 mg IV Q6HP PRN PRN Reason: Nausea And Vomiting Last Admin: 08/16/19 23:26 Dose: 10 mg Documented by: Promethazine HCl (Phenergan) 12.5 mg IV Q6HP PRN PRN Reason: Nausea And Vomiting Last Admin: 08/18/19 01:27 Dose: 12.5 mg Documented by: Sodium Chloride (Saline Flush) 10 ml IV Q8 [facility] Last Admin: 08/18/19 07:00 Dose: 10 ml Documented by: Medical - PN: A/P - Time Spent With Patient Total time spent is greater than 50% in coordination of care (as documented) at patient's floor/unit and/or counseling patient: - Narrative A/P Narrative: A: *Acute diverticulitis with severe abdominal pain: -leukocytosis improving, no bandemia. lactate ok. *Diarrhea on admit: *SIRS: improving *Tobacco abuse: P: -Zosyn -pain control and antiemetics -clear liquids, advance as tolerated -Surgery following, eventual colonoscopy, may repeat imaging -Smoking cessation counseling -ppx: lovenox Medical - PN: Qual - Stroke Symptom Onset Unknown: No - VTE Deep Vein Thrombosis/Pulmonary Embolism Present on Admission: No
[2019-08-18] MEDS: HYDROcodone/APAP 5/325MG TABLET PO PRN ×3 (09:36→19:57)
[2019-08-18] MEDS: ENOXAPARIN 40 MG/0.4 ML SYRINGE SQ SCH (09:39)
[2019-08-18] MEDS: ONDANSETRON 4 MG/2 ML VIAL IV PRN ×2 (10:05→14:33)
--- NOTE | 2019-08-18 15:04 | General Surgery Progress Note ---
Subjective Patient reports: feels better, pain is less, tolerating liquids well, flatus, bowel movement, nausea, afebrile Narrative: Note initiated : 08/18/19 at 3:02 pm Service Date, if different from initiated Date: [] Patient: Oziel Kraft 39 y/o M admitted on 08/16/19 for Diverticulitis. Chief Complaint: [patient feels better. He still has pain that is improved, especially on the right side. He has had flatus and a small bowel movement. White blood count 12.1, hemoglobin 12.6, hematocrit 37.9.] Objective Temp Pulse Resp BP Pulse Ox 97.4 F 72 14 138/84 96 08/18/19 12:00 08/18/19 07:30 08/18/19 12:00 08/18/19 12:00 08/18/19 12:00 - Additional Data Intake & Output - Last 24 hours: Intake & Output 08/16/19 08/17/19 08/18/19 08/19/19 05:59 05:59 05:59 05:59 Intake Total 1460 3600 1640 Output Total 125 3200 1275 Balance 1335 400 365 Weight 199 lb 14.4 oz 200 lb 12.8 oz 200 lb 12.8 oz - General physical appearance well developed, well nourished, no distress - Eyes PERRL, normal ocular movement - ENT normal pinna, normal nares, normal mucosa, no hearing loss, no congestion - Neck no masses, no bruits, trachea midline, no lymphadenopathy, no venous distension - Respiratory normal expansion, normal respiratory effort, clear to auscultation - Cardiovascular Cardiovascular exam: Present: normal rate and rhythm, RRR, +S1, +S2. Absent: JVD, tachycardia - Abdomen non tender, tender (moderate tenderness in left lower quadrant and hypogastrium; minimal tenderness on the right), bowel sounds (present), surgical scars (none), masses (none) - Integumentary no rash, no growths, no abnormal pigmentation - Neurologic normal coordination, normal sensation - Musculoskeletal normal gait, normal posture - Psychiatric oriented to time, oriented to person, oriented to place, speech is normal, memory intact - Labs 08/18/19 05:28 08/17/19 05:04 Assessment and Plan (1) Acute diverticulitis of intestine Status: Acute Assessment and plan: Patient is clinically improving. We'll schedule CT of the abdomen and pelvis with contrast on Sunday of this week. Current Visit: Yes (2) Bloody diarrhea Status: Acute Current Visit: Yes - Time Spent With Patient Total time spent is greater than 50% in coordination of care (as documented) at patient's floor/unit and/or counseling patient:
[2019-08-18] MEDS: MELATONIN 3 MG TABLET PO SCH (19:57)
[2019-08-19] MEDS: HYDROmorphone 2 MG/ML VIAL IV PRN ×7 (00:09→20:58)
[2019-08-19] MEDS: PIPERACILLIN SODIUM/TAZOBACTAM 3.375 GM in DEXTROSE 5% IN WATER 50 ML IV SCH ×5 (00:09→23:49)
[2019-08-19] MEDS: 0.9 % SODIUM CHLORIDE 10 ML SYRINGE IV SCH ×3 (05:14→22:48)
[2019-08-19 07:40] LABS: Basophils # (Auto) 0.03 K/mcL (0.00-0.30); Basophils % (Auto) 0.3 % (0.0-2.0); Eosinophils # (Auto) 0.41 K/mcL (0.00-0.70); Eosinophils % (Auto) 4.5 % (0.0-7.0); Granulocytes % (Auto) 62.1 % (38.0-78.0); Hematocrit 38.4 % (40.1-51.0); Lymphocytes # (Auto) 2.24 K/mcL (1.50-4.80); Lymphocytes % (Auto) 24.6 % (15.5-49.0); Mean Cell Volume 89.1 fL (80.0-100.0); Mean Corpuscular HGB Conc 33.9 g/dL (31.0-36.0); Mean Platelet Volume 9.8 fL (7.4-10.4); Monocytes # (Auto) 0.77 K/mcL (0.10-0.90); Monocytes % (Auto) 8.5 % (1.0-12.0); Platelet Count 250 K/mcL (140-440); RBC 4.31 M/mcL (4.63-6.08); Red Cell Distribution Width 12.3 % (11.5-14.5); WBC 9.1 K/mcL (4.50-11.00)
[2019-08-19 08:46] LABS: C-Reactive Protein 14.3 mg/dl (0.0-0.8)
[2019-08-19] MEDS: ENOXAPARIN 40 MG/0.4 ML SYRINGE SQ SCH (10:09)
[2019-08-19] MEDS: HYDROcodone/APAP 5/325MG TABLET PO PRN ×2 (13:08→20:24)
--- NOTE | 2019-08-19 15:40 | Internal Med Progress Note ---
Medical - PN: Subj Patient information: Note initiated : 08/19/19 at 3:40 pm Service Date, if different from initiated Date: [] Patient: Oziel Kraft a 39 y/o M admitted on 08/16/19 for Diverticulitis. Chief Complaint: [] Interval history: Mr. Kraft is a 39 year old M Who presents the ED with lower abdominal pain. Patient states he was diagnosed with diverticulitis on the eighth and given antibiotics and pain medications. His white blood cell count at that time was 19,000. He returned to [facility] yesterday because of increased abdominal pain. White blood cell count at that time was 15.7. He was released and states that increased abdominal pain again and presents to our ER. His white blood cell count is 16.5. He is afebrile he was tachycardic initially, improved with IV fluids. He has been taken Augmentin. He had headache fever chills nausea. He has mucousy brown diarrhea with some blood. Repeat CT abdomen revealed moderate mid sigmoid diverticulitis with some impro vement since the previous CT. Also shows resolution of a 3 cm abscess which was apparent on the previous ED. Patient unable to control pain at home and poor oral intake. Reports the pain is lower mid to left. It is constant dull ache and intermittent sharp pain. 08/16 Poor sleep last night. Feels a little better with some improved abdominal pain but is on pain medications. Tired. Some nausea and headache. Has some chills little bit in the night. 08/17 No nausea vomiting this morning. Poor sleep last night. Facial headache. No bowel movement since he arrived but states he is passing gas with pain. Seen by Dr. Wilson yesterday. may repeat imaging later. 08/18-patient doing well. Due for CT abdomen in 24 hours. Persistent abdominal discomfort. White count improving down from 16.5-9.1. Remains afebrile. Continue antibiotic coverage. No other concerns per nursing staff. Denies diarrhea or bloody stools - Constitutional Vitals: Vital Signs Temp Pulse Resp BP Pulse Ox 98.3 F 57 L 14 134/86 97 08/19/19 15:32 08/19/19 15:32 08/19/19 11:30 08/19/19 15:32 08/19/19 15:32 Period Temp Pulse Resp BP Sys/[place] Pulse Ox Last 24 Hr 97.5 F-98.3 F 57-66 12-18 109-138/70-93 93-97 Intake and Output 08/19/19 08/19/19 08/19/19 05:59 13:59 21:59 Intake Total 725 420 Output Total 800 1100 Balance -75 -680 Intake & Output: Intake & Output 08/19/19 08/19/19 08/19/19 05:59 13:59 21:59 Intake Total 725 420 Output Total 800 1100 Balance -75 -680 Intake: IV 100 Zosyn 3.375 gm In Dextrose 5% 100 in Water 50 ml @ 100 mls/hr IV Q6H [facility] Rx#:[id number] Oral 625 420 Output: Urine Catheter Amount 325 Void Amount 800 775 Other: Meal Lunch Percent of Meal Consumed 50% Urine Appearance Clear Urine Color Bright Yellow Straw Urine Odor Normal Normal General appearance: no acute distress Exam: Alert oriented nonlabored breathing No anxiety Nondistended admittedly tender abdomen Medical - PN: Obj Da - Labs CBC & Chem 7: 08/19/19 06:39 08/17/19 05:04 Labs: Abnormal Lab Results 08/19/19 08/19/19 08/18/19 06:39 06:39 05:28 WBC RBC 4.31 L Hgb 13.0 L Hct 38.4 L Gran % Lymph % (Auto) Gran # [place] # (Auto) Lymphocytes % Carbon Dioxide C-Reactive Protein 14.3 H 20.0 H 08/18/19 08/17/19 08/17/19 05:28 05:04 05:04 WBC 12.1 H 14.3 H RBC 4.19 L 4.36 L Hgb 12.6 L 13.2 L Hct 37.9 L 39.5 L Gran % Lymph % (Auto) Gran # [place] # (Auto) 1.04 H Lymphocytes % 14 L Carbon Dioxide C-Reactive Protein 21.1 H 08/16/19 08/16/19 17:11 17:10 WBC 16.5 H RBC Hgb Hct Gran % 79.0 H Lymph % (Auto) 11.5 L Gran # 13.00 H [place] # (Auto) 1.23 H Lymphocytes % Carbon Dioxide 19 L C-Reactive Protein 17.8 H Meds: Medications Acetaminophen (Tylenol) 650 mg PO Q6HP PRN PRN Reason: PAIN/FEVER > 101 Hydrocodone Bitart/Acetaminophen ([place] 5/325mg) 1 tab PO Q4HP PRN PRN Reason: PAIN LEVEL 3-6 Last Admin: 08/19/19 13:08 Dose: 1 tab Documented by: Diphenhydramine HCl (Benadryl) 25 mg PO HSP PRN PRN Reason: Insomnia Enoxaparin Sodium (Lovenox) 40 mg SQ DAILY [facility] Last Admin: 08/19/19 10:09 Dose: 40 mg Documented by: Hydromorphone HCl (Dilaudid) 0 mg IV Q2HP PRN PRN Reason: Pain Last Admin: 08/19/19 14:03 Dose: 0.5 mg Documented by: Potassium Chloride 40 meq/ (Dextrose) 520 mls @ 130 mls/hr IV UD PRN PRN Reason: Potassium < 3 Magnesium Sulfate (Magnesium Sulfate) 2 gm in 50 mls @ 50 mls/hr IV UD PRN PRN Reason: Magnesium </= 1.6 Piperacillin Sod/Tazobactam (Sod 3.375 gm/ Dextrose) 50 mls @ 100 mls/hr IV Q6H [facility]; Protocol Last Admin: 08/19/19 13:03 Dose: 100 mls/hr Documented by: Melatonin (Melatonin 3mg Tablet) 3 mg PO QHS [facility] Last Admin: 08/18/19 19:57 Dose: 3 mg Documented by: Ondansetron HCl (Zofran) 4 mg IV Q4HP PRN PRN Reason: Nausea And Vomiting Last Admin: 08/18/19 14:33 Dose: 4 mg Documented by: Polyethylene Glycol (Miralax) 17 gm PO DAILYP PRN PRN Reason: Constipation Potassium Chloride (Kdur) 40 meq PO UD PRN PRN Reason: Potssium is 3-3.5 Potassium Chloride (Kdur) 40 meq PO UD PRN PRN Reason: Potassium < 3 Prochlorperazine (Compazine) 10 mg IV Q6HP PRN PRN Reason: Nausea And Vomiting Last Admin: 08/16/19 23:26 Dose: 10 mg Documented by: Promethazine HCl (Phenergan) 12.5 mg IV Q6HP PRN PRN Reason: Nausea And Vomiting Last Admin: 08/18/19 01:27 Dose: 12.5 mg Documented by: Sodium Chloride (Saline Flush) 10 ml IV Q8 [facility] Last Admin: 08/19/19 14:02 Dose: 10 ml Documented by: Medical - PN: A/P - Time Spent With Patient Total time spent is greater than 50% in coordination of care (as documented) at patient's floor/unit and/or counseling patient: 15 - 24 minutes - Narrative A/P Narrative: * Acute diverticulitis-clinically improving on antibiotic coverage. Surgery on board. * Abdominal pain much improved. * Sepsis clinically resolved. White count normalized. * Diarrhea clinically resolved. * Tobacco dependence * Full code * Prophylaxis Lovenox Plan * Continue antibiotic coverage * Clear liquids and advance as per surgery recommendations Medical - PN: Qual - Stroke Symptom Onset Unknown: No - VTE Deep Vein Thrombosis/Pulmonary Embolism Present on Admission: No
--- NOTE | 2019-08-19 17:28 | General Surgery Progress Note ---
Subjective Patient reports: feels better, pain is less, flatus, no bowel movement, nausea, afebrile Narrative: Note initiated : 08/19/19 at 5:26 pm Service Date, if different from initiated Date: [] Patient: Oziel Kraft 39 y/o M admitted on 08/16/19 for Diverticulitis. Chief Complaint: [patient fell. He agrees that he feels better. He has been afebrile. His pain is less. He had mild nausea but that has resolved. He is having small bowel movements. White count 9.1, hemoglobin 13, hematocrit 30.4.] Objective Temp Pulse Resp BP Pulse Ox 98.3 F 57 L 14 134/86 97 08/19/19 15:32 08/19/19 15:32 08/19/19 11:30 08/19/19 15:32 08/19/19 15:32 - Additional Data Intake & Output - Last 24 hours: Intake & Output 08/17/19 08/18/19 08/19/19 08/20/19 05:59 05:59 05:59 05:59 Intake Total 1460 3600 3865 420 Output Total 125 3200 3450 1100 Balance 1335 400 415 -680 Weight 199 lb 14.4 oz 200 lb 12.8 oz 195 lb 9.6 oz - General physical appearance well developed, well nourished, no distress - Eyes PERRL, normal ocular movement - ENT normal pinna, normal nares, normal mucosa, no hearing loss, no congestion - Neck no masses, no bruits, trachea midline, no lymphadenopathy, no venous distension - Respiratory normal expansion, normal respiratory effort, clear to auscultation - Cardiovascular Cardiovascular exam: Present: normal rate and rhythm, RRR, +S1, +S2. Absent: JVD, tachycardia - Abdomen tender (moderate tenderness left lower quadrant with guarding), bowel sounds (present), surgical scars (none), masses (none) - Integumentary no rash, no growths, no abnormal pigmentation - Neurologic normal coordination, normal sensation - Musculoskeletal normal gait, normal posture - Psychiatric oriented to time, oriented to person, oriented to place, speech is normal, memory intact - Labs 08/19/19 06:39 08/17/19 05:04 Assessment and Plan (1) Acute diverticulitis of intestine Status: Acute Assessment and plan: Patient is clinically improving. We'll schedule CT of the abdomen and pelvis with contrast on Sunday of this week. Current Visit: Yes (2) Bloody diarrhea Status: Acute Current Visit: Yes - Time Spent With Patient Total time spent is greater than 50% in coordination of care (as documented) at patient's floor/unit and/or counseling patient:
[2019-08-19] MEDS: MELATONIN 3 MG TABLET PO SCH (20:24)
[2019-08-20] MEDS: HYDROmorphone 2 MG/ML VIAL IV PRN ×2 (03:31→10:00)
[2019-08-20] MEDS: PIPERACILLIN SODIUM/TAZOBACTAM 3.375 GM in DEXTROSE 5% IN WATER 50 ML IV SCH ×2 (05:03→12:21)
[2019-08-20] MEDS: 0.9 % SODIUM CHLORIDE 10 ML SYRINGE IV SCH (05:14)
[2019-08-20] MEDS: ONDANSETRON 4 MG/2 ML VIAL IV PRN (07:17)
[2019-08-20 07:35] LABS: Basophils # (Auto) 0.03 K/mcL (0.00-0.30); Basophils % (Auto) 0.4 % (0.0-2.0); Eosinophils # (Auto) 0.45 K/mcL (0.00-0.70); Eosinophils % (Auto) 5.3 % (0.0-7.0); Granulocytes % (Auto) 62.7 % (38.0-78.0); Hematocrit 39.4 % (40.1-51.0); Hemoglobin 13.3 g/dL (13.7-17.5); Lymphocytes # (Auto) 2.11 K/mcL (1.50-4.80); Lymphocytes % (Auto) 24.8 % (15.5-49.0); Mean Cell Volume 88.5 fL (80.0-100.0); Mean Corpuscular HGB Conc 33.8 g/dL (31.0-36.0); Mean Platelet Volume 10.1 fL (7.4-10.4); Monocytes # (Auto) 0.58 K/mcL (0.10-0.90); Monocytes % (Auto) 6.8 % (1.0-12.0); Platelet Count 270 K/mcL (140-440); RBC 4.45 M/mcL (4.63-6.08); Red Cell Distribution Width 12.3 % (11.5-14.5); WBC 8.5 K/mcL (4.50-11.00)
[2019-08-20] MEDS ORDERED: IOPAMIDOL 100 ML BOTTLE IV ONE (08:06)
[2019-08-20] MEDS: ENOXAPARIN 40 MG/0.4 ML SYRINGE SQ SCH (09:52)
--- NOTE | 2019-08-20 10:07 | Cat Scan Report ---
CLINICAL INFORMATION: Follow-up diverticulitis COMPARISON: 08/16/[address] TECHNIQUE: Following enteric contrast, 80 cc of Isovue-370 were injected intravenously, and 60 seconds later, 0.625 mm helical slices were obtained from the mid heart through the subtrochanteric regions. Following reconstruction, 2.5 mm sagittal, coronal and axial reformatted images were processed and reviewed at bone, lung and soft tissue windows. Five minutes later, 0.625 mm helical slices were obtained from the mid heart through the kidneys and viewed at soft tissue windows.The exam was performed using radiation dose optimization techniques including, but not limited to, automated exposure control, adjustment of the mA and/or kV according to patient size and use of iterative reconstruction technique. FINDINGS: Lung bases show no abnormality - no effusion. Visualized heart is normal. Abdominal images show minimal fatty change within the liver but no focal lesion. The gallbladder and bile ducts, both kidneys, adrenal glands, spleen, pancreas, and aorta including aortic branches are normal in size configuration and attenuation without focal lesion. There is no free air, free fluid or adenopathy. Pelvic images show prostate, seminal vesicles and urinary bladder are unremarkable. Moderate diverticulitis in the mid sigmoid colon retrievable wall thickening of the colon and phlegmon surrounding perisigmoid fat 2004. The abscess in the inferior perisigmoid region has decreased in size [place] 21 mm. The remaining colon and appendix small bowel stomach are normal. Bone windows show no osseous abnormality IMPRESSION: Moderate diverticulitis mid sigmoid colon - improved since the CT four days prior. 2.1 cm abscess in the inferior perisigmoid region has decreased slightly Interpreted and Authenticated by: Sid Valdivia 08/20/19
--- NOTE | 2019-08-20 12:41 | Internal Med Progress Note ---
Medical - PN: Subj Patient information: Note initiated : 08/20/19 at 12:40 pm Service Date, if different from initiated Date: [] Patient: Oziel Kraft a 39 y/o M admitted on 08/16/19 for Diverticulitis. Chief Complaint: [] Interval history: Mr. Kraft is a 39 year old M Who presents the ED with lower abdominal pain. Patient states he was diagnosed with diverticulitis on the eighth and given antibiotics and pain medications. His white blood cell count at that time was 19,000. He returned to [facility] yesterday because of increased abdominal pain. White blood cell count at that time was 15.7. He was released and states that increased abdominal pain again and presents to our ER. His white blood cell count is 16.5. He is afebrile he was tachycardic initially, improved with IV fluids. He has been taken Augmentin. He had headache fever chills nausea. He has mucousy brown diarrhea with some blood. Repeat CT abdomen revealed moderate mid sigmoid diverticulitis with some impr ovement since the previous CT. Also shows resolution of a 3 cm abscess which was apparent on the previous ED. Patient unable to control pain at home and poor oral intake. Reports the pain is lower mid to left. It is constant dull ache and intermittent sharp pain. 08/16 Poor sleep last night. Feels a little better with some improved abdominal pain but is on pain medications. Tired. Some nausea and headache. Has some chills little bit in the night. 08/17 No nausea vomiting this morning. Poor sleep last night. Facial headache. No bowel movement since he arrived but states he is passing gas with pain. Seen by Dr. Wilson yesterday. may repeat imaging later. 08/18-patient doing well. Due for CT abdomen in 24 hours. Persistent abdominal discomfort. White count improving down from 16.5-9.1. Remains afebrile. Continue antibiotic coverage. No other concerns per nursing staff. Denies diarrhea or bloody stools 08/19-patient doing well. No overnight events. No concerns per staff. Minimal abdominal tenderness. CT abdomen shows moderate diverticulitis with slightly decreased inferior perisigmoid abscess. Surgery on board. No fever chills nausea vomiting. - Constitutional Vitals: Vital Signs Temp Pulse Resp BP Pulse Ox 97.5 F 68 18 118/65 100 03/18/20 08:00 08/20/19 11:30 08/20/19 08:00 08/20/19 11:30 08/20/19 08:00 Period Temp Pulse Resp BP Sys/[place] Pulse Ox Last 24 Hr 97.4 F-98.3 F 57-68 14-18 118-149/65-92 94-100 Intake and Output 08/19/19 08/20/19 08/20/19 21:59 05:59 13:59 Intake Total 530 820 Output Total 275 200 500 Balance 255 620 -500 Weight 194 lb 9.6 oz Intake & Output: Intake & Output 08/19/19 08/20/19 08/20/19 21:59 05:59 13:59 Intake Total 530 820 Output Total 275 200 500 Balance 255 620 -500 Weight 194 lb 9.6 oz Intake: Nourishment/Supplement quantity 0 (ml) IV 50 100 Zosyn 3.375 gm In Dextrose 5% 50 100 in Water 50 ml @ 100 mls/hr IV Q6H [facility] Rx#:[id number] Oral 480 720 Output: Void Amount 275 200 500 Other: Meal Dinner Percent of Meal Consumed 75% Nourishment/Supplement name breeze Urine Appearance Clear Clear Urine Color Pale Dark Yellow Dark Yellow Urine Odor Strong Normal Stool Size Small Stool Color Blood Tinged Stool Consistency Loose # Voids 1 2 # Bowel Movements 1 # [place] 0 General appearance: no acute distress Exam: Alert oriented Nonlabored breathing No anxiety Nondistended abdomen Medical - PN: Obj Da - Labs CBC & Chem 7: 08/20/19 05:16 08/17/19 05:04 Labs: Abnormal Lab Results 08/20/19 08/19/19 08/19/19 05:16 06:39 06:39 WBC RBC 4.45 L 4.31 L Hgb 13.3 L 13.0 L Hct 39.4 L 38.4 L [place] # (Auto) C-Reactive Protein 14.3 H 08/18/19 08/18/19 05:28 05:28 WBC 12.1 H RBC 4.19 L Hgb 12.6 L Hct 37.9 L [place] # (Auto) 1.04 H C-Reactive Protein 20.0 H Meds: Medications Acetaminophen (Tylenol) 650 mg PO Q6HP PRN PRN Reason: PAIN/FEVER > 101 Hydrocodone Bitart/Acetaminophen ([place] 5/325mg) 1 tab PO Q4HP PRN PRN Reason: PAIN LEVEL 3-6 Last Admin: 08/19/19 20:24 Dose: 1 tab Documented by: Diphenhydramine HCl (Benadryl) 25 mg PO HSP PRN PRN Reason: Insomnia Enoxaparin Sodium (Lovenox) 40 mg SQ DAILY [facility] Last Admin: 08/20/19 09:52 Dose: 40 mg Documented by: Hydromorphone HCl (Dilaudid) 0 mg IV Q2HP PRN PRN Reason: Pain Last Admin: 08/20/19 10:00 Dose: 0.5 mg Documented by: Potassium Chloride 40 meq/ (Dextrose) 520 mls @ 130 mls/hr IV UD PRN PRN Reason: Potassium < 3 Magnesium Sulfate (Magnesium Sulfate) 2 gm in 50 mls @ 50 mls/hr IV UD PRN PRN Reason: Magnesium </= 1.6 Piperacillin Sod/Tazobactam (Sod 3.375 gm/ Dextrose) 50 mls @ 100 mls/hr IV Q6H [facility]; Protocol Last Admin: 08/20/19 12:21 Dose: 100 mls/hr Documented by: Melatonin (Melatonin 3mg Tablet) 3 mg PO QHS [facility] Last Admin: 08/19/19 20:24 Dose: 3 mg Documented by: Ondansetron HCl (Zofran) 4 mg IV Q4HP PRN PRN Reason: Nausea And Vomiting Last Admin: 08/20/19 07:17 Dose: 4 mg Documented by: Polyethylene Glycol (Miralax) 17 gm PO DAILYP PRN PRN Reason: Constipation Potassium Chloride (Kdur) 40 meq PO UD PRN PRN Reason: Potssium is 3-3.5 Potassium Chloride (Kdur) 40 meq PO UD PRN PRN Reason: Potassium < 3 Prochlorperazine (Compazine) 10 mg IV Q6HP PRN PRN Reason: Nausea And Vomiting Last Admin: 08/16/19 23:26 Dose: 10 mg Documented by: Promethazine HCl (Phenergan) 12.5 mg IV Q6HP PRN PRN Reason: Nausea And Vomiting Last Admin: 08/18/19 01:27 Dose: 12.5 mg Documented by: Sodium Chloride (Saline Flush) 10 ml IV Q8 [facility] Last Admin: 08/20/19 05:14 Dose: 10 ml Documented by: Medical - PN: A/P - Time Spent With Patient Total time spent is greater than 50% in coordination of care (as documented) at patient's floor/unit and/or counseling patient: 25 - 35 minutes - Narrative A/P Narrative: * Acute diverticulitis-clinically improving on antibiotic coverage. CT abdomen persistent but improved a sigmoid abscess/moderate diverticulitis * Abdominal pain much improved. * Sepsis clinically resolved. * Diarrhea clinically resolved. * Tobacco dependence * Full code * Prophylaxis Lovenox Plan * Await further surgery recommendations * Clear liquids and advance as per surgery recommendations * Antibiotic coverage Medical - PN: Qual - Stroke Symptom Onset Unknown: No - VTE Deep Vein Thrombosis/Pulmonary Embolism Present on Admission: No
[2019-08-20] MEDS: HYDROcodone/APAP 5/325MG TABLET PO PRN (14:21)
--- NOTE | 2019-08-20 16:41 | Discharge Summary ---
Medical - DS: Prov Patient information: Note initiated : 08/20/19 at 4:39 pm Service Date, if different from initiated Date: [] Patient: Oziel Kraft 39 y/o M admitted on 08/16/19 for Diverticulitis. Chief Complaint: [] Date of admission: 08/16/19 20:43 Discharge date: 08/20/19 Consults: 08/16/19 Consult to Physician [CONS] Stat Comment: Consulting Provider: Renny Bolanos Reason For Exam: Physician to Consult 08/17/19 11:42 Consult to Physician [CONS] Routine Comment: Consulting Provider: Aaron Wilson Reason For Exam: Physician to Consult Medical - DS: Meds - Discharge Medications Active and Home Medications: Home Medications No Known Home Meds 08/16/19 [History Confirmed 08/16/19 Last Taken Unknown] Medical - DS: Hosp Hospital Course: Discharge diagnosis * Acute diverticulitis-clinically improving on antibiotic coverage. CT abdomen persistent but improved a sigmoid abscess/moderate diverticulitis. Surgery recommends discharging on Cipro Flagyl for additional 2 weeks along with follow-up as outpatient * Abdominal pain much improved. * Sepsis clinically resolved. * Diarrhea clinically resolved. * Tobacco dependence cessation counseling performed Brief hospital course Mr. Kraft is a 39 year old M Who presents the ED with lower abdominal pain. Patient states he was diagnosed with diverticulitis on the eighth and given antibiotics and pain medications. His white blood cell count at that time was 19,000. He returned to [facility] yesterday because of increased abdominal pain. White blood cell count at that time was 15.7. He was released and states that increased abdominal pain again and presents to our ER. His white blood cell count is 16.5. He is afebrile he was tachycardic initially, improved with IV fluids. He has been taken Augmentin. He had headache fever chills nausea. He has mucousy brown diarrhea with some blood. Repeat CT abdomen revealed moderate mid sigmoid diverticulitis with some improvement since the previous CT. Also shows resolution of a 3 cm abscess which was apparent on the previous ED. Patient unable to control pain at home and poor oral intake. Reports the pain is lower mid to left. It is constant dull ache and intermittent sharp pain. 3/15 Poor sleep last night. Feels a little better with some improved abdominal pain but is on pain medications. Tired. Some nausea and headache. Has some chills little bit in the night. 08/17 No nausea vomiting this morning. Poor sleep last night. Facial headache. No bowel movement since he arrived but states he is passing gas with pain. Seen by Dr. Wilson yesterday. may repeat imaging later. 08/18-patient doing well. Due for CT abdomen in 24 hours. Persistent abdominal discomfort. White count improving down from 16.5-9.1. Remains afebrile. Continue antibiotic coverage. No other concerns per nursing staff. Denies diarrhea or bloody stools 08/19-patient doing well. No overnight events. No concerns per staff. Minimal abdominal tenderness. CT abdomen shows moderate diverticulitis with slightly decreased inferior perisigmoid abscess. Surgery recommends continuing add itional 2 weeks oral Cipro and Flagyl. Patient will follow-up with surgery in 2 weeks as outpatient. Discharging with advice as below Discharge diagnosis: . - Time Spent with Patient Total time spent providing and/or coordinating discharge services: Greater than 30 minutes Medical - DS: Exam - Constitutional Vitals: Vital Signs Temp Pulse Resp BP BP Pulse Ox 08/20/19 12:00 97.7 F 59 L 18 131/89 96 08/20/19 11:30 68 118/65 08/20/19 08:00 97.5 F 63 18 149/92 100 08/20/19 04:03 98.0 F 62 14 128/84 94 08/19/19 23:51 97.9 F 60 14 123/77 99 08/19/19 19:09 97.4 F 63 16 140/92 98 Intake and Output 08/20/19 08/20/19 08/20/19 05:59 13:59 21:59 Intake Total 820 Output Total 200 500 Balance 620 -500 Intake: IV 100 Zosyn 3.375 gm In Dextrose 5% 100 in Water 50 ml @ 100 mls/hr IV Q6H [facility] Rx#:[id number] Oral 720 Output: Void Amount 200 500 Other: Urine Appearance Clear Urine Color Dark Yellow Dark Yellow Urine Odor Strong Normal # Voids 2 # [place] 0 Medical - DS: Data Labs on day of discharge: Labs from last 24 hours 08/20/19 05:16 WBC 8.5 RBC 4.45 L Hgb 13.3 L Hct 39.4 L MCV 88.5 MCH 29.9 MCHC 33.8 RDW 12.3 Plt Count 270 MPV 10.1 Gran % 62.7 Lymph % (Auto) 24.8 [place] % (Auto) 6.8 Eos % (Auto) 5.3 Baso % (Auto) 0.4 Gran # 5.34 Lymph # (Auto) 2.11 [place] # (Auto) 0.58 Eos # (Auto) 0.45 Baso # (Auto) 0.03 Medical - DS: A/P - Patient/Caregiver Discharge Instructions Activity: increase activity as tolerated Diet: Regular Diet Additional Instructions: Continue ciprofloxacin/Flagyl for additional 2 weeks follow-up surgery Dr. Wilson in 2 weeks Return to ER if worsening abdominal pain nausea vomiting Refrain from alcohol use due to high risk disulfiram-like reaction Prescriptions: Ciprofloxacin [Cipro] 500 mg PO BID #30 tab Prescription Printed metroNIDAZOLE [Flagyl] 500 mg PO QID #60 tab Prescription Printed - Follow up Plan Follow up with: Aaron Wilson MD [Physician] - 09/02/19 8:00 am Disposition: Home, Self-Care Care Plan Goals: This discharge packet is provided to you to help keep you informed about your care. We want to ensure you get everything you need when you go home. You will also be receiving a call from us in a few days to follow up with you and see how you are doing since your discharge. This gives us a chance to listen to any concerns you maybe experiencing since you were discharged or any additional needs you may have, as well as providing us feedback on your care experience. We strive to always provide excellent care and thank you for your feedback and for choosing [facility]. Prognosis: Fair Rehab Potential: Fair I certify that the patient requires SNF services: No Overall status at discharge: patient is progressing back to baseline Medical - DS: Qual - VTE Deep Vein Thrombosis/Pulmonary Embolism Present on Admission: No
== END 2019-08-20 18:02 | disposition home or self-care (01) | DRG 377 ==
LOC: ED 16:25 → MEDSUR 20:43
PROVIDERS: ADMIT Internal Medicine; ATTEND Internal Medicine

== ENCOUNTER 2019-09-01 18:06 | Inpatient (IN) ==
[2019-09-01] MEDS ORDERED: ONDANSETRON 4 MG/2 ML VIAL IV ONE (18:21)
[2019-09-01] MEDS ORDERED: 0.9 % SODIUM CHLORIDE 1,000 ML IV ONE (18:21)
[2019-09-01] MEDS: HYDROmorphone 2 MG/ML VIAL IV SCH (18:57)
[2019-09-01] MEDS ORDERED: PROMETHAZINE 25 MG/ML VIAL IV ONE (19:21)
[2019-09-01] MEDS ORDERED: HYDROmorphone 2 MG/ML VIAL IV SCH (19:30)
[2019-09-01 20:11] LABS: Chloride 102 mmol/L (96-108)
[2019-09-01 20:18] LABS: ALT/SGPT 27 U/l (0-40); AST/SGOT 26 U/l (0-37); Albumin 3.9 gm/dL (3.2-5.2); Albumin/Globulin Ratio 1.3 (1.0-2.3); Alkaline Phosphatase 72 U/L (39-117); Bilirubin,Total 0.2 mg/dL (0.0-1.0); Blood Urea Nitrogen 9 mg/dl (6-20); Calcium 9.6 mg/dl (8.6-10.4); Carbon Dioxide 20 mmol/L (22-30); Globulin 3.1 gm/dL (2.2-3.7); Glomerular Filtration Rate 106; Glucose 90 mg/dL (70-105)
[2019-09-01 20:31] LABS: Basophils # (Auto) 0.05 K/mcL (0.00-0.30); Basophils % (Auto) 0.3 % (0.0-2.0); Eosinophils # (Auto) 0.31 K/mcL (0.00-0.70); Eosinophils % (Auto) 1.7 % (0.0-7.0); Granulocytes % (Auto) 76.2 % (38.0-78.0); Hematocrit 45.9 % (40.1-51.0); Hemoglobin 15.8 g/dL (13.7-17.5); Lymphocytes % (Auto) 14.8 % (15.5-49.0); Mean Cell Volume 88.6 fL (80.0-100.0); Mean Corpuscular HGB Conc 34.4 g/dL (31.0-36.0); Mean Platelet Volume 11.5 fL (7.4-10.4); Monocytes # (Auto) 1.27 K/mcL (0.10-0.90); Platelet Count 225 K/mcL (140-440); RBC 5.18 M/mcL (4.63-6.08); WBC 18.2 K/mcL (4.50-11.00)
--- NOTE | 2019-09-01 20:46 | Emergency Department Note ---
Abdominal Pain HPI - General Chief Complaint: Abdominal Pain Stated Complaint: Lower Left Abdominal Pain Time Seen by Provider: 09/01/19 18:21 Source: patient Mode of arrival: ambulatory Limitations: no limitations - History of Present Illness HPI Narrative: 39-year-old male presents with diffuse severe abdominal pain. He rates it 9-10 out of 10. States he is under the care of Dr. Wilson for diverticulitis as well as it abscess. States he was doing better and did not have any pain although contrast and go for repeat CT of the abdomen and pelvis. He drank his contrast and then could barely make it home when he started having diarrhea and severe pain in the left lower quadrant. States the pain radiates into his testicles and rectum area and he also has nausea and vomiting. States "it feels like something ripped loose ". No home treatments. States is hard to even urinate because the pain is so severe. - Related Data Previous Rx's Medication Instructions Recorded Ciprofloxacin [Cipro] 500 mg PO BID #30 tab 08/20/19 metroNIDAZOLE [Flagyl] 500 mg PO QID #60 tab 08/20/19 Allergies Allergy/AdvReac Type Severity Reaction Status Date / Time morphine Allergy Severe Rash, Verified 10/02/17 15:16 throat swelling Review of Systems All systems ED: reviewed and negative except as stated. Abdominal Pain PMH - Past Medical History [facility] Narrative: Medical History (Last Reviewed 10/02/17 @ 15:17 by Katherine Caldwell RN) Lumbar back pain (Chronic) Sprained ankle (Chronic) Left hydrocele (Chronic) Swelling of left testicle (Chronic) Pain in left testicle (Chronic) Past Surgical History (Last Reviewed 10/02/17 @ 15:17 by Katherine Caldwell RN) History of back surgery (Acute) History of left shoulder replacement (Acute) History of surgery (Acute) Hx of hand surgery (Acute) No pertinent past surgical history (Inactive) Medical history: Reports: other (diverticulitis) - Social History Smoking status: Current every day smoker Alcohol use: Reports: None Drug use: Reports: none Physical Exam Limitations: no limitations General appearance: alert Head: atraumatic, normocephalic, normal inspection Eye: Present: normal appearance. Absent: conjunctival injection ENT: Present: mucous membranes moist Chest: Present: symmetric chest wall rise Respiratory: Present: normal lung sounds bilaterally. Absent: respiratory distress, rales/crackles, accessory muscle use Cardiovascular: Present: regular rate, normal heart sounds Abdominal: Present: soft, tenderness (difuse, worse LLQ), normal bowel sounds Extremities: Present: normal inspection Neurological: Present: alert, oriented X3 Psychiatric: Present: anxious Skin: Present: warm, diaphoretic Course Course Narrative: Pain meds for what at 2100 Dr. Wilson, with surgery, agrees to accept patient and would like me to put in some ED transition orders. Patient agreeable to stay. Vital Signs Temperature 98.1 F 09/01/19 18:07 Pulse Rate 102 H 09/01/19 18:07 Respiratory Rate 26 H 09/01/19 18:07 Blood Pressure 127/91 09/01/19 18:07 Pulse Oximetry (%) 99 09/01/19 18:07 Temperature 98.1 F 09/01/19 18:07 Pulse Rate 73 09/01/19 20:02 Respiratory Rate 26 H 09/01/19 18:07 Blood Pressure 121/97 09/01/19 20:02 Pulse Oximetry (%) 99 09/01/19 20:02 Abdominal Pain - Lab Data Lab results reviewed: Yes I reviewed the patient's lab results. Result diagrams: 09/01/19 18:44 09/01/19 18:44 Lab Results 09/01/19 09/01/19 09/01/19 Range/Units 18:44 18:44 18:44 WBC 18.2 H (4.50-11.00) K/mcL RBC 5.18 (4.63-6.08) M/mcL Hgb 15.8 (13.7-17.5) g/dL Hct 45.9 (40.1-51.0) % MCV 88.6 (80.0-100.0) fL MCH 30.5 (26.0-34.0) pg MCHC 34.4 (31.0-36.0) g/dL RDW 13.0 (11.5-14.5) % Plt Count 225 (140-440) K/mcL MPV 11.5 H (7.4-10.4) fL Gran % 76.2 (38.0-78.0) % Lymph % (Auto) 14.8 L (15.5-49.0) % [place] % (Auto) 7.0 (1.0-12.0) % Eos % (Auto) 1.7 (0.0-7.0) % Baso % (Auto) 0.3 (0.0-2.0) % Gran # 13.87 H (1.80-8.00) K/mcL Lymph # (Auto) 2.70 (1.50-4.80) K/mcL [place] # (Auto) 1.27 H (0.10-0.90) K/mcL Eos # (Auto) 0.31 (0.00-0.70) K/mcL Baso # (Auto) 0.05 (0.00-0.30) K/mcL VBG Lactic Acid 1.1 (0.5-2.0) mmol/L Sodium 138 (133-145) mmol/L Potassium 4.3 (3.3-5.1) mmol/L Chloride 102 (96-108) mmol/L Carbon Dioxide 20 L (22-30) mmol/L Anion Gap 16.0 (8-16) BUN 9 (6-20) mg/dl Creatinine 0.9 (0.7-1.2) mg/dl GFR Calculation 106 Glucose 90 (70-105) mg/dL Calcium 9.6 (8.6-10.4) mg/dl Total Bilirubin 0.2 (0.0-1.0) mg/dL AST 26 (0-37) U/l ALT 27 (0-40) U/l Alkaline Phosphatase 72 (39-117) U/L Total Protein 7.0 (5.9-8.4) gm/dL Albumin 3.9 (3.2-5.2) gm/dL Globulin 3.1 (2.2-3.7) gm/dL Albumin/Globulin Ratio 1.3 (1.0-2.3) - Radiology Data Radiology results reviewed: Yes I reviewed the patient's radiology results. Disposition Pt seen by CATERING DIRECTOR/PA only: Yes Clinical Impression: Diverticulitis of intestine with abscess, Intractable abdominal pain, Nausea Disposition: Xfer As Outpt/Obs ([facility]) Condition: Fair Referrals: Aaron Wilson MD [Physician] - Time of Disposition: 21:01
[2019-09-01 20:52] LABS: Appearance,Urine CLEAR; Bacteria,Urine 0 /hpf (0); Bilirubin,Urine NEG (NEG); Color,Urine STRAW; Culture Indicated,Urine NO; Glucose,Urine (UA) NEGATIVE (NEG); Ketones,Urine NEG (NEG); Leukocyte Esterase,Urine NEG /uL (NEG); Nitrate,Urine NEG (NEG); Protein,Urine NEG (NEG); Specific Gravity,Urine 1.009 (1.000-1.035); Urine Blood 0.03 mg/dL (<0.03); Urine RBC 0 /hpf (0-1); Urine Squamous Epithelial Cell 0 /hpf (0-4); Urine WBC < 1 /hpf (0-4); Urobilinogen,Urine NEG (NEG)
[2019-09-01] MEDS ORDERED: LEVOFLOXACIN 750 MG/150 ML BAG IV SCH (21:00)
[2019-09-01] MEDS: metroNIDAZOLE 500 MG/100 ML BAG IV SCH (21:35)
[2019-09-01] MEDS: HYDROmorphone 2 MG/ML VIAL IV PRN ×2 (21:48→23:44)
[2019-09-01] MEDS: PROMETHAZINE 25 MG/ML VIAL IV PRN (21:48)
[2019-09-01] MEDS: 0.9 % SODIUM CHLORIDE 1,000 ML IV SCH (22:13)
[2019-09-02] MEDS: HYDROmorphone 2 MG/ML VIAL IV PRN ×10 (01:48→21:57)
[2019-09-02] MEDS: metroNIDAZOLE 500 MG/100 ML BAG IV SCH ×5 (02:51→17:30)
[2019-09-02] MEDS: 0.9 % SODIUM CHLORIDE 1,000 ML IV SCH ×4 (05:50→23:55)
[2019-09-02] MEDS: ONDANSETRON 4 MG/2 ML VIAL IV PRN ×4 (05:51→18:11)
[2019-09-02 10:36] LABS: Basophils # (Auto) 0.03 K/mcL (0.00-0.30); Basophils % (Auto) 0.2 % (0.0-2.0); Eosinophils # (Auto) 0.22 K/mcL (0.00-0.70); Eosinophils % (Auto) 1.3 % (0.0-7.0); Granulocytes % (Auto) 71.7 % (38.0-78.0); Hematocrit 45.2 % (40.1-51.0); Hemoglobin 14.8 g/dL (13.7-17.5); Lymphocytes # (Auto) 2.97 K/mcL (1.50-4.80); Lymphocytes % (Auto) 18.1 % (15.5-49.0); Mean Cell Volume 92.1 fL (80.0-100.0); Mean Corpuscular HGB Conc 32.7 g/dL (31.0-36.0); Mean Platelet Volume 10.8 fL (7.4-10.4); Monocytes # (Auto) 1.43 K/mcL (0.10-0.90); Monocytes % (Auto) 8.7 % (1.0-12.0); Platelet Count 308 K/mcL (140-440); RBC 4.91 M/mcL (4.63-6.08); Red Cell Distribution Width 13.4 % (11.5-14.5); WBC 16.4 K/mcL (4.50-11.00)
[2019-09-02] MEDS: LEVOFLOXACIN 750 MG/150 ML BAG IV SCH (11:26)
--- NOTE | 2019-09-02 13:57 | General Surg History&Physical ---
History of Present Illness Patient information: Note initiated : 09/02/19 at 1:53 pm Service Date, if different from initiated Date: [] Patient: Oziel Kraft a 39 y/o M admitted on 09/01/19 for Lower Left Abdominal Pain. Chief Complaint: [] HPI: Mr. Kraft is a 39 year old M admitted with exacerbation of diverticulitis. The patient has a history of diverticulitis dating back to 10 August 2019. He was seen at [facility] and was noted to have a pelvic abscess and and inflammation of the sigmoid colon compatible with diverticulitis. He was treated as an outpatient with Augmentin but did not improve. He returned 6 days later with continued symptoms and was again treated with another course of antibiotics. He presented to our emergency room on 15 August and was noted to have a new collection of fluid in the pelvis between the sigmoid colon and the bladder. He was admitted and treated with antibiotics. He was treated for 4 days and follow-up CT showed significant improvement. He was discharged home. He had CT of the abdomen with oral contrast from yesterday and about 1 hour after the procedure he developed severe pain and diarrhea. He returned to the emergency room where it was noted that his white count was 18.2. He was having nausea and severe pain. He is admitted, treated with IV antibiotics. The CT actually is shows that the previous abscess is now only 1.7 cm and the inflammation is significantly improved. Review of Systems - Constitutional malaise - EENT Nose, mouth and throat: headache(s) (cancer patient.) - Cardiovascular dyspnea on exertion, no pedal edema, no rapid heart rate - Respiratory no cough, no dyspnea, no dyspnea on exertion, no chest congestion - Gastrointestinal abdominal pain, bloating, change in bowel habits, no nausea - Genitourinary testicular pain, urinary hesitancy, urinary urgency - Musculoskeletal arthralgias, myalgias - Integumentary no changing lesions, no non-healing lesions, no pruritus, no rash - Neurological headache(s), no abnormal hearing, no focal weakness - Psychiatric anxiety - Endocrine fatigue - Hematologic/Lymphatic no easy bleeding, no easy bruising, no lymphadenopathy - Allergic/Immunologic no tongue swelling, no throat swelling, no uticaria, no wheezing, no lip swelling Past History Past medical history: no chronic medical illnesses Past surgical history: Lumbar spinal surgery with fusion. Left total shoulder replacement. Repair of traumatic injury left hand. OTIF left Ankle due to traumatic injury Past family history: Grandmother with breast cancer, colon cancer, coronary artery disease. Multiple family members with hypertension Past social history: Daily smoker. Frequent alcohol use. Denies drug use. Employed Medications and Allergies Home Medications Medication Instructions Recorded Confirmed Type Ciprofloxacin [Cipro] 500 mg PO BID #30 tab 08/20/19 09/01/19 Rx metroNIDAZOLE [Flagyl] 500 mg PO QID #60 tab 08/20/19 09/01/19 Rx Allergies Allergy/AdvReac Type Severity Reaction Status Date / Time morphine Allergy Severe Rash, Verified 10/02/17 15:16 throat swelling Exam Temp Pulse Resp BP Pulse Ox 98.3 F 77 18 127/83 98 09/02/19 12:00 09/02/19 12:00 09/02/19 12:00 09/02/19 12:09/02/19 12:00 - General physical appearance well developed, well nourished, no distress - Eyes PERRL, normal ocular movement - ENT normal pinna, normal nares, normal mucosa, no hearing loss, no congestion - Head Head exam IM: Present: atraumatic, normocephalic - Neck no masses, no bruits, trachea midline, no lymphadenopathy, no venous distension - Cardiovascular Cardiovascular exam IM: Present: normal rate and rhythm - Respiratory normal expansion, normal respiratory effort, clear to percussion, clear to auscultation - Abdomen Abdomen: Present: soft, tender (diffusely tender left lateral), bowel sounds, distended ( bowel distention) Hernia: Present: none - Genitourinary Present: normal penis with no external lesions - Integumentary Present: no rash, no growths, no abnormal pigmentation - Neurologic Present: normal coordination, normal sensation - Musculoskeletal Present: normal gait, normal posture - Psychiatric Present: oriented to time, oriented to person, oriented to place, speech is normal, memory intact Assessment and Plan (1) Acute diverticulitis of intestine Patient will be treated with IV antibiotics and bowel rest until he stabilizes. . He will then be treated with another course of oral ciprofloxacin and Flagyl. Status: Acute
[2019-09-02] MEDS: ACETAMINOPHEN 1,000 MG/100 ML BOTTLE IV SCH ×2 (14:18→20:06)
[2019-09-02] MEDS: PROMETHAZINE 25 MG/ML VIAL IV PRN (16:32)
[2019-09-02] MEDS: KETOROLAC 30 MG/ML VIAL IV SCH ×2 (17:29→23:55)
[2019-09-02] MEDS: HYDROmorphone 2 MG/ML VIAL IV SCH (18:59)
[2019-09-03] MEDS: HYDROmorphone 2 MG/ML VIAL IV PRN ×9 (01:58→22:06)
[2019-09-03] MEDS: ACETAMINOPHEN 1,000 MG/100 ML BOTTLE IV SCH ×4 (03:21→17:13)
[2019-09-03] MEDS: KETOROLAC 30 MG/ML VIAL IV SCH ×4 (05:48→23:51)
[2019-09-03] MEDS: metroNIDAZOLE 500 MG/100 ML BAG IV SCH ×5 (05:48→23:52)
[2019-09-03 07:09] LABS: Basophils # (Auto) 0.04 K/mcL (0.00-0.30); Basophils % (Auto) 0.4 % (0.0-2.0); Eosinophils # (Auto) 0.25 K/mcL (0.00-0.70); Eosinophils % (Auto) 2.3 % (0.0-7.0); Granulocytes % (Auto) 65.8 % (38.0-78.0); Hematocrit 38.1 % (40.1-51.0); Hemoglobin 12.2 g/dL (13.7-17.5); Lymphocytes # (Auto) 2.31 K/mcL (1.50-4.80); Lymphocytes % (Auto) 20.9 % (15.5-49.0); Mean Platelet Volume 10.6 fL (7.4-10.4); Monocytes # (Auto) 1.17 K/mcL (0.10-0.90); Monocytes % (Auto) 10.6 % (1.0-12.0); Platelet Count 219 K/mcL (140-440); RBC 4.14 M/mcL (4.63-6.08); Red Cell Distribution Width 13.3 % (11.5-14.5)
[2019-09-03] MEDS: ONDANSETRON 4 MG/2 ML VIAL IV PRN (07:58)
[2019-09-03] MEDS: 0.9 % SODIUM CHLORIDE 1,000 ML IV SCH ×4 (08:05→19:52)
[2019-09-03] MEDS: LEVOFLOXACIN 750 MG/150 ML BAG IV SCH (09:25)
--- NOTE | 2019-09-03 10:54 | General Surgery Progress Note ---
Subjective Patient reports: feels better, still having pain, pain is less, tolerating liquids well, flatus, no bowel movement, afebrile Narrative: Note initiated : 09/03/19 at 10:52 am Service Date, if different from initiated Date: [] Patient: Oziel Kraft 39 y/o M admitted on 09/01/19 for Lower Left Abdominal Pain. Chief Complaint: [Patient has improved. He is afebrile. His white count is 11. He stills states that he has left lower quadrant suprapubic pain. Clinically he does not appear to be in any acute distress] Objective Temp Pulse Resp BP Pulse Ox 98.2 F 75 16 130/85 96 09/03/19 07:33 09/03/19 07:33 09/03/19 07:33 09/03/19 07:33 09/03/19 07:33 - Additional Data Intake & Output - Last 24 hours: Intake & Output 09/01/19 09/02/19 09/03/19 09/04/19 05:59 05:59 05:59 05:59 Intake Total 2475 5140 1700 Output Total 3575 0 Balance 2475 1565 1700 Weight 191 lb 191 lb 8 oz - General physical appearance well developed, well nourished, no distress, moderate pain - Eyes PERRL, normal ocular movement - ENT normal pinna, normal nares, normal mucosa, no hearing loss, no congestion - Neck no masses, no bruits, trachea midline, no lymphadenopathy, no venous distension - Respiratory normal expansion, normal respiratory effort, clear to auscultation - Cardiovascular Cardiovascular exam: Present: normal rate and rhythm, RRR, +S1, +S2. Absent: JVD, tachycardia - Abdomen tender (mild tenderness left lower quadrant without guarding or rebound) - Integumentary no rash, no growths, no abnormal pigmentation - Neurologic normal coordination, normal sensation - Musculoskeletal normal gait, normal posture - Psychiatric oriented to time, oriented to person, oriented to place, speech is normal, memory intact - Labs 09/03/19 05:15 09/01/19 18:44 Assessment and Plan (1) Acute diverticulitis of intestine Status: Acute Assessment and plan: Patient is clinically improved. We'll continue present antibiotic regimen. If stable will probably tomorrow. He will be continued on 2 weeks of oral antibiotics after discharge Current Visit: No - Time Spent With Patient Total time spent is greater than 50% in coordination of care (as documented) at patient's floor/unit and/or counseling patient:
[2019-09-04] MEDS: HYDROmorphone 2 MG/ML VIAL IV PRN ×3 (01:05→09:08)
[2019-09-04] MEDS: ACETAMINOPHEN 1,000 MG/100 ML BOTTLE IV SCH ×2 (01:46→08:12)
[2019-09-04] MEDS: 0.9 % SODIUM CHLORIDE 1,000 ML IV SCH (01:47)
[2019-09-04] MEDS: KETOROLAC 30 MG/ML VIAL IV SCH (05:47)
[2019-09-04] MEDS: metroNIDAZOLE 500 MG/100 ML BAG IV SCH (05:47)
[2019-09-04 06:17] LABS: Basophils # (Auto) 0.03 K/mcL (0.00-0.30); Basophils % (Auto) 0.3 % (0.0-2.0); Eosinophils # (Auto) 0.43 K/mcL (0.00-0.70); Eosinophils % (Auto) 4.2 % (0.0-7.0); Granulocytes % (Auto) 65.6 % (38.0-78.0); Hematocrit 35.8 % (40.1-51.0); Hemoglobin 11.7 g/dL (13.7-17.5); Lymphocytes # (Auto) 2.18 K/mcL (1.50-4.80); Lymphocytes % (Auto) 21.5 % (15.5-49.0); Mean Cell Volume 90.9 fL (80.0-100.0); Mean Corpuscular HGB Conc 32.7 g/dL (31.0-36.0); Mean Platelet Volume 10.6 fL (7.4-10.4); Monocytes # (Auto) 0.85 K/mcL (0.10-0.90); Monocytes % (Auto) 8.4 % (1.0-12.0); Platelet Count 211 K/mcL (140-440); RBC 3.94 M/mcL (4.63-6.08); WBC 10.1 K/mcL (4.50-11.00)
[2019-09-04] MEDS: LEVOFLOXACIN 750 MG/150 ML BAG IV SCH (09:00)
--- NOTE | 2019-09-04 11:22 | Discharge Summary ---
Providers - Providers Patient information: Note initiated : 09/04/19 at 11:19 am Service Date, if different from initiated Date: [] Patient: Oziel Kraft 39 y/o M admitted on 09/03/19 for Lower Left Abdominal Pain. Chief Complaint: [] Date of admission: 09/01/19 Discharge date: 09/04/19 Attending physician: Aaron Wilson Hospitalization Hospital Course: 39-year-old male with prior history of diverticulitis who was undergoing treatment. He was having a follow-up CT at 2 weeks and all contrast was used. He develop severe abdominal pain with diarrhea after the procedure. He was seen in the emergency room in this white count was noted to be 18.2. Review of his CT, however, showed significant improvement in the diverticulitis with his abscess which was over 3 cm was found to 1.7 cm. Most of the bowel wall thickening and inflammation had resolved. Patient was admitted started on IV antibiotics. He has done well clinically except subjectively he states that he has significant pain. His white blood count is found to 10.1 and he has been afebrile. He is tolerating diet without difficulty.. Patient is stable for discharge home Discharge diagnosis: diverticulitis with exacerbation Reason for admission: , recurrent diverticulitis Procedures: None Pertinent studies/significant findings: None Complications: None Exam Temp Pulse Resp BP Pulse Ox 98.3 F 71 14 123/81 97 09/04/19 08:00 09/04/19 08:00 09/04/19 08:00 09/04/19 08:00 09/04/19 08:00 - General physical appearance well developed, well nourished, no distress - Eyes PERRL, normal ocular movement - ENT normal pinna, normal nares, normal mucosa, no hearing loss, no congestion - Head Head exam IM: Present: atraumatic, normocephalic - Neck no masses, no bruits, trachea midline, no lymphadenopathy, no venous distension - Cardiovascular Cardiovascular exam IM: Present: normal rate and rhythm - Respiratory normal expansion, normal respiratory effort, clear to percussion, clear to auscultation - Abdomen Abdomen: Present: tender (tenderness in left lower quadrant and hypogastrium), bowel sounds Hernia: Present: none - Genitourinary Present: normal penis with no external lesions - Integumentary Present: no rash, no growths, no abnormal pigmentation - Neurologic Present: normal coordination, normal sensation - Musculoskeletal Present: normal gait, normal posture - Psychiatric Present: oriented to time, oriented to person, oriented to place, speech is normal, memory intact Discharge Plan - Patient/Caregiver Discharge Instructions Activity: increase activity as tolerated Diet: Low Fiber Prescriptions: Ciprofloxacin [Cipro] 500 mg PO BID #40 tab Transmission Status: Pending to [facility] #[id number] metroNIDAZOLE [Flagyl] 500 mg PO QID #60 tab Transmission Status: Pending to [facility] #[id number] - Follow up Plan Follow up with: Aaron Wilson MD [Physician] - 09/29/19 (call to verify appt time) Disposition: Home, Self-Care Prognosis: Fair Rehab Potential: Good I certify that the patient requires SNF services.: No Overall status at discharge: patient is progressing back to baseline Pending Studies Resuscitation Status Full Code Diet GI Soft/Transitional Start SunSep 02 1130 Hydromorphone HCl (Dilaudid) 1 mg IV Q2HP PRN; Protocol PRN Reason: Per Pain Protocol Last Admin: 09/04/19 09:08 Dose: 1 mg Documented by: Admin: 09/04/19 03:58 Dose: 1 mg Documented by: Admin: 09/04/19 01:05 Dose: 1 mg Documented by: Admin: 09/03/19 22:06 Dose: 1 mg Documented by: Admin: 09/03/19 19:52 Dose: 1 mg Documented by: Admin: 09/03/19 17:43 Dose: 1 mg Documented by: Admin: 09/03/19 15:12 Dose: 1 mg Documented by: Admin: 09/03/19 13:14 Dose: 1 mg Documented by: Admin: 09/03/19 10:30 Dose: 1 mg Documented by: Admin: 09/03/19 07:43 Dose: 1 mg Documented by: Admin: 09/03/19 03:53 Dose: 1 mg Documented by: Admin: 09/03/19 01:58 Dose: 1 mg Documented by: Admin: 09/02/19 21:57 Dose: 1 mg Documented by: Admin: 09/02/19 18:10 Dose: 1 mg Documented by: Admin: 09/02/19 16:07 Dose: 1 mg Documented by: Admin: 09/02/19 14:10 Dose: 1 mg Documented by: Admin: 09/02/19 12:09 Dose: 1 mg Documented by: Admin: 09/02/19 09:57 Dose: 1 mg Documented by: Admin: 09/02/19 07:45 Dose: 1 mg Documented by: Admin: 09/02/19 05:51 Dose: 1 mg Documented by: Admin: 09/02/19 03:53 Dose: 1 mg Documented by: Admin: 09/02/19 01:48 Dose: 1 mg Documented by: Admin: 09/01/19 23:44 Dose: 1 mg Documented by: Admin: 09/01/19 21:48 Dose: 1 mg Documented by: JANELLE Sodium Chloride (Sodium Chloride 0.9%) 1,000 mls @ 150 mls/hr IV .Q6H40M L[facility] Infusion: 09/04/19 08:28 Dose: 0 mls/hr Documented by: Admin: 09/04/19 01:47 Dose: 150 mls/hr Documented by: Infusion: 09/04/19 00:02 Dose: 150 mls/hr Documented by: Admin: 09/03/19 19:52 Dose: Not Given Documented by: Admin: 09/03/19 17:21 Dose: 150 mls/hr Documented by: Infusion: 09/03/19 17:20 Dose: 0 mls/hr Documented by: Admin: 09/03/19 15:03 Dose: Not Given Documented by: Admin: 09/03/19 08:05 Dose: 150 mls/hr Documented by: Infusion: 09/03/19 06:36 Dose: 150 mls/hr Documented by: Admin: 09/02/19 23:55 Dose: 150 mls/hr Documented by: Infusion: 09/02/19 20:52 Dose: 150 mls/hr Documented by: Admin: 09/02/19 18:10 Dose: Not Given Documented by: Admin: 09/02/19 14:11 Dose: 150 mls/hr Documented by: Infusion: 09/02/19 12:31 Dose: 150 mls/hr Documented by: Admin: 09/02/19 05:50 Dose: 150 mls/hr Documented by: Infusion: 09/02/19 04:54 Dose: 150 mls/hr Documented by: Admin: 09/01/19 22:13 Dose: 150 mls/hr Documented by: DAMARI Levofloxacin (Levaquin) 750 mg in 150 mls @ 100 mls/hr IV Q24H [facility] Last Admin: 09/04/19 09:00 Dose: 100 mls/hr Documented by: Infusion: 09/03/19 11:10 Dose: 0 mls/hr Documented by: Admin: 09/03/19 09:25 Dose: 100 mls/hr Documented by: Infusion: 09/02/19 13:30 Dose: 0 mls/hr Documented by: Admin: 09/02/19 11:26 Dose: 100 mls/hr Documented by: FERCHO Metronidazole (Flagyl) 500 mg in 100 mls @ 100 mls/hr IV Q6H LOR; Protocol Last Infusion: 09/04/19 07:11 Dose: 0 mls/hr Documented by: Admin: 09/04/19 05:47 Dose: 100 mls/hr Documented by: Infusion: 09/04/19 00:52 Dose: 100 mls/hr Documented by: Admin: 09/03/19 23:52 Dose: 100 mls/hr Documented by: Infusion: 09/03/19 18:53 Dose: 100 mls/hr Documented by: Admin: 09/03/19 17:53 Dose: 100 mls/hr Documented by: Infusion: 09/03/19 14:00 Dose: 0 mls/hr Documented by: Admin: 09/03/19 12:13 Dose: 100 mls/hr Documented by: Infusion: 09/03/19 06:50 Dose: 0 mls/hr Documented by: Admin: 09/03/19 05:48 Dose: 100 mls/hr Documented by: Infusion: 09/03/19 01:00 Dose: 100 mls/hr Documented by: Admin: 09/03/19 00:00 Dose: 100 mls/hr Documented by: Infusion: 09/02/19 18:30 Dose: 100 mls/hr Documented by: Admin: 09/02/19 17:30 Dose: 100 mls/hr Documented by: Infusion: 09/02/19 16:31 Dose: 0 mls/hr Documented by: Admin: 09/02/19 15:08 Dose: 100 mls/hr Documented by: [email or web address] Infusion: 09/02/19 11:40 Dose: 0 mls/hr Documented by: Admin: 09/02/19 09:58 Dose: 100 mls/hr Documented by: FERCHO Acetaminophen (Ofirmev) 1,000 mg in 100 mls @ 200 mls/hr IV Q6H [facility] Last Admin: 09/04/19 08:12 Dose: 200 mls/hr Documented by: Infusion: 09/04/19 02:20 Dose: 0 mls/hr Documented by: Admin: 09/04/19 01:46 Dose: 200 mls/hr Documented by: DAMARI Ketorolac Tromethamine (Toradol) 30 mg IV Q6 [facility] Stop: 09/04/19 13:18 Last Admin: 09/04/19 05:47 Dose: 30 mg Documented by: Admin: 09/03/19 23:51 Dose: 30 mg Documented by: Admin: 09/03/19 17:10 Dose: 30 mg Documented by: Admin: 09/03/19 12:09 Dose: 30 mg Documented by: Admin: 09/03/19 05:48 Dose: 30 mg Documented by: Admin: 09/02/19 23:55 Dose: 30 mg Documented by: Admin: 09/02/19 17:29 Dose: 30 mg Documented by: FERCHO Ondansetron HCl (Zofran) 4 mg IV Q4-6HP PRN PRN Reason: Nausea And Vomiting Last Admin: 09/03/19 07:58 Dose: 4 mg Documented by: Admin: 09/02/19 18:11 Dose: 4 mg Documented by: Admin: 09/02/19 14:11 Dose: 4 mg Documented by: Admin: 09/02/19 10:15 Dose: 4 mg Documented by: [email or web address] Admin: 09/02/19 05:51 Dose: 4 mg Documented by: DAMARI Promethazine HCl (Phenergan) 12.5 mg IV Q4-6HP PRN PRN Reason: Nausea And Vomiting Last Admin: 09/02/19 16:32 Dose: 12.5 mg Documented by: Admin: 09/01/19 21:48 Dose: 12.5 mg Documented by: JANELLE Shift Summary 09/04/19 04:02 Shift Summary by Monica Juan Pt is A&O x4 up at storm in room. Requested to use urinal this shift. Patient changed to in patient yesterday. Pain less controlled this evening. Pt has scheduled Toradol and Ofirmev Q6hrs. These medications are on a separate schedule to be staggered. Pt received 4 doses Dilaudid 1mg this shift with the last one at 0400. WBC's improving however patient states he still has a lot of pain. No nausea medications needed this shift. Laboratory Tests 09/01/19 09/02/19 09/03/19 18:44 08:48 05:15 WBC 18.2 H 16.[address] Harmon note 09/03/19 Assessment and Plan (1) Acute diverticulitis of intestine Status: Acute Assessment and plan: Patient is clinically improved. We'll continue present antibiotic regimen. If stable will probably tomorrow. He will be continued on 2 weeks of oral antibiotics after discharge Will update with verbal report. Initialized on 09/04/19 04:02 - END OF NOTE
== END 2019-09-04 12:15 | disposition home or self-care (01) | DRG 392 ==
LOC: ED 18:06 → MEDSUR 18:06
PROVIDERS: ADMIT Family Medicine Adult Medicine; ATTEND Family Medicine Adult Medicine

== ENCOUNTER 2019-10-01 18:01 | Inpatient (IN) ==
--- NOTE | 2019-10-01 14:25 | XRay Report ---
CLINICAL INFORMATION: Preop COMPARISON: None. TECHNIQUE: PA and Lateral views FINDINGS: The heart size, mediastinum and pulmonary vessels are unremarkable. The lungs are clear. There are no effusions. The bones and soft tissues are within normal limits. IMPRESSION: Normal chest. Interpreted and Authenticated by: Sid Valdivia 10/01/19
[2019-10-01 15:58] LABS: INR 0.9 (0.9-1.1); Prothrombin Time 12.9 sec (11.9-14.5)
[2019-10-01 17:24] LABS: Basophils # (Auto) 0.02 K/mcL (0.00-0.30); Basophils % (Auto) 0.2 % (0.0-2.0); Eosinophils # (Auto) 0.25 K/mcL (0.00-0.70); Granulocytes % (Auto) 60.6 % (38.0-78.0); Hematocrit 43.1 % (40.1-51.0); Hemoglobin 14.3 g/dL (13.7-17.5); Mean Cell Volume 89.8 fL (80.0-100.0); Mean Corpuscular HGB Conc 33.2 g/dL (31.0-36.0); Mean Platelet Volume 10.4 fL (7.4-10.4); Monocytes # (Auto) 0.67 K/mcL (0.10-0.90); Monocytes % (Auto) 8.2 % (1.0-12.0); Platelet Count 238 K/mcL (140-440); WBC 8.2 K/mcL (4.50-11.00)
[2019-10-01 17:26] LABS: ALT/SGPT 37 U/l (0-40); AST/SGOT 22 U/l (0-37); Albumin 4.3 gm/dL (3.2-5.2); Albumin/Globulin Ratio 1.4 (1.0-2.3); Alkaline Phosphatase 96 U/L (39-117); Bilirubin,Total 0.2 mg/dL (0.0-1.0); Blood Urea Nitrogen 7 mg/dl (6-20); Calcium 9.6 mg/dl (8.6-10.4); Carbon Dioxide 24 mmol/L (22-30); Chloride 101 mmol/L (96-108); Glomerular Filtration Rate 111; Glucose 82 mg/dL (70-105)
[2019-10-01] MEDS ORDERED: 0.9 % SODIUM CHLORIDE 1,000 ML IV ONE (18:04)
[2019-10-01] MEDS ORDERED: ONDANSETRON 4 MG/2 ML VIAL IV ONE (18:23)
[2019-10-01] MEDS ORDERED: HYDROmorphone 1 MG/ML SYRINGE IV ONE (18:23)
--- NOTE | 2019-10-01 18:24 | Emergency Department Note ---
Nausea/Vomiting/Diarrhea HPI - General Chief complaint: Nausea/Vomiting/Diarrhea Stated complaint: nausea, vomit, bloody stools Time Seen by Provider: 10/01/19 18:04 Source: patient Mode of arrival: ambulatory Limitations: no limitations - History of Present Illness HPI Narrative: 39-year-old male presents with severe left lower quadrant abdominal pain. Onset 2 months ago but worse over the last day or so. States he is scheduled for surgery for diverticulitis this Sunday with Dr. Wilson. He tried calling his office today because his pain got severe and all day he has been passing passing mucus and blood rectally but no stool. He is also been vomiting all day. No fever that he knows of but has had chills. Has not taken his temperature. Stat es he tried calling Dr. Wilson's office but cannot get a hold of anyone so came to ER. He did have all of his preop labs drawn this morning, they were reviewed and are normal. - Related Data Previous Rx's Medication Instructions Recorded ciprofloxacin HCl 500 mg tablet 500 mg PO BID #20 tab 09/30/19 metronidazole 500 mg tablet 500 mg PO TID #40 tab 09/30/19 Allergies Allergy/AdvReac Type Severity Reaction Status Date / Time morphine Allergy Severe Rash, Verified 10/01/19 13:50 throat swelling Review of Systems All systems ED: reviewed and negative except as stated. Past Medical History - Past Medical History [facility] Narrative: Medical History (Last Reviewed 09/30/19 @ 10:49 by Aaron Wilson MD) Lumbar back pain (Chronic) Sprained ankle (Chronic) Left hydrocele (Chronic) Swelling of left testicle (Chronic) Pain in left testicle (Chronic) Past Surgical History (Last Reviewed 09/30/19 @ 10:49 by Aaron Wilson MD) History of back surgery (Acute) History of left shoulder replacement (Acute) History of surgery (Acute) Hx of hand surgery (Acute) No pertinent past surgical history (Inactive) Medical history: Reports: other (diverticulitis) - Social History smoking status: Current every day smoker Alcohol use: Reports: None Drug use: Reports: none Physical Exam Limitations: no limitations General appearance: alert, grimacing Head: atraumatic, normocephalic, normal inspection Eye: Present: normal appearance. Absent: conjunctival injection ENT: Present: mucous membranes moist Chest: Present: symmetric chest wall rise Respiratory: Present: normal lung sounds bilaterally. Absent: respiratory distress, rales/crackles, wheezes, accessory muscle use Cardiovascular: Present: regular rate, normal heart sounds Abdominal: Present: soft, tenderness (LLQ pain), normal bowel sounds. Absent: distention, guarding, rebound, rigidity, mass Neurological: Present: alert, oriented X3 Psychiatric: Present: normal affect, normal mood Skin: Present: warm, dry, intact, rash Course Course Narrative: Labs were reviewed from earlier today, please see lab results from [facility] this morning At 1820 I did speak with Dr. Wilson. He would like me to put this patient in observation and write orders and put him on IV Flagyl and Levaquin and control his pain and nausea. Patient is agreeable. Vital Signs Temperature 97.9 F 10/01/19 18:02 Pulse Rate 84 10/01/19 18:02 Respiratory Rate 20 10/01/19 18:02 Pulse Oximetry (%) 97 10/01/19 18:02 Temperature 97.9 F 10/01/19 18:02 Pulse Rate 84 10/01/19 18:02 Respiratory Rate 20 10/01/19 18:02 Pulse Oximetry (%) 97 10/01/19 18:02 Nausea/Vomiting/Diarrhea - Medical Records Medical records reviewed: Yes I reviewed the patient's medical records. - Lab Data Lab results reviewed: Yes I reviewed the patient's lab results. Disposition Pt seen by [employer]PERVISOR/PA only: Yes Clinical Impression: Intractable pain, Diverticulitis, Nausea and vomiting Disposition: Xfer As Outpt/Obs ([facility]) Condition: Fair Referrals: No,PCP [Primary Care Provider] - Aaron Wilson MD [Physician] - Time of Disposition: 18:27
[2019-10-01] MEDS ORDERED: LEVOFLOXACIN 750 MG/150 ML BAG IV SCH (18:30)
[2019-10-01] MEDS ORDERED: HYDROmorphone 1 MG/ML SYRINGE IV PRN (18:30)
[2019-10-01] MEDS ORDERED: HYDROmorphone* 2 MG/ML VIAL IV SCH (18:45)
[2019-10-01] MEDS: metroNIDAZOLE 500 MG/100 ML BAG IV SCH (18:58)
[2019-10-01] MEDS: 0.9 % SODIUM CHLORIDE 1,000 ML IV SCH (20:04)
[2019-10-01] MEDS: PROMETHAZINE 25 MG/ML VIAL IV PRN (20:20)
[2019-10-01] MEDS ORDERED: ACETAMINOPHEN 1,000 MG/100 ML BOTTLE IV PRN (20:45)
[2019-10-01] MEDS: HYDROmorphone 1 MG/ML SYRINGE IV PRN (21:11)
[2019-10-02] MEDS: metroNIDAZOLE 500 MG/100 ML BAG IV SCH ×4 (00:13→17:33)
[2019-10-02] MEDS: HYDROmorphone 1 MG/ML SYRINGE IV PRN ×8 (00:26→19:37)
[2019-10-02] MEDS: 0.9 % SODIUM CHLORIDE 1,000 ML IV SCH ×4 (00:39→18:52)
[2019-10-02] MEDS: ONDANSETRON 4 MG/2 ML VIAL IV PRN ×3 (05:58→21:19)
[2019-10-02] MEDS ORDERED: PEG 3350/NA SULF,BICARB,CL/KCL 4,000 ML ORAL.SOL PO ONE (08:38)
[2019-10-02] MEDS ORDERED: PEG 3350/NA SULF,BICARB,CL/KCL 4,000 ML ORAL.SOL ONE (08:52)
[2019-10-02] MEDS: LEVOFLOXACIN 750 MG/150 ML BAG IV SCH (08:53)
[2019-10-02] MEDS: PROMETHAZINE 25 MG/ML VIAL IV PRN ×2 (09:09→21:53)
[2019-10-02 11:13] LABS: Basophils # (Auto) 0.02 K/mcL (0.00-0.30); Basophils % (Auto) 0.3 % (0.0-2.0); Eosinophils # (Auto) 0.19 K/mcL (0.00-0.70); Hematocrit 38.8 % (40.1-51.0); Hemoglobin 12.6 g/dL (13.7-17.5); Lymphocytes # (Auto) 2.25 K/mcL (1.50-4.80); Lymphocytes % (Auto) 35.8 % (15.5-49.0); Mean Cell Volume 91.1 fL (80.0-100.0); Mean Corpuscular HGB Conc 32.5 g/dL (31.0-36.0); Mean Platelet Volume 10.2 fL (7.4-10.4); Monocytes # (Auto) 0.56 K/mcL (0.10-0.90); Monocytes % (Auto) 8.9 % (1.0-12.0); Platelet Count 175 K/mcL (140-440); RBC 4.26 M/mcL (4.63-6.08); Red Cell Distribution Width 13.2 % (11.5-14.5); WBC 6.3 K/mcL (4.50-11.00)
--- NOTE | 2019-10-02 17:33 | General Surgery Progress Note ---
Subjective Patient reports: feels better, still having pain, flatus, bowel movement, diarrhea, nausea, afebrile Narrative: Note initiated : 10/02/19 at 5:31 pm Service Date, if different from initiated Date: [] Patient: Oziel Kraft 39 y/o M admitted on 10/01/19 for nausea, vomit, bloody stools. Chief Complaint: [patient is still having significant pain left lower quadrant. He has nausea. He is tolerating his bowel prep so FAR. White blood count 6.3, hemoglobin 12.6, hematocrit 38.8] Objective Temp Pulse Resp BP Pulse Ox 97.9 F 58 L 16 95/55 97 10/02/19 12:00 10/02/19 12:00 10/02/19 12:00 10/02/19 12:00 10/02/19 12:00 - Additional Data Intake & Output - Last 24 hours: Intake & Output 09/30/19 10/01/19 10/02/19 10/03/19 05:59 05:59 05:59 05:59 Intake Total 2775 1790 Output Total 850 1500 Balance 1925 290 Weight 183 lb 1.6 oz 183 lb 1.6 oz - General physical appearance well developed, well nourished, moderate distress, moderate pain - Eyes PERRL, normal ocular movement - ENT normal pinna, normal nares, normal mucosa, no hearing loss, no congestion - Neck no masses, no bruits, trachea midline, no lymphadenopathy, no venous distension - Respiratory normal expansion, normal respiratory effort, clear to auscultation - Cardiovascular Cardiovascular exam: Present: normal rate and rhythm, RRR, +S1, +S2. Absent: ta chycardia - Abdomen non tender, bowel sounds (present), surgical scars (none), masses (still with tenderness in left lower quadrant) - Rectum normal sphincter tone, no hemorrhoids, no tenderness, no masses, no bleeding - Integumentary no rash, no growths, no abnormal pigmentation - Neurologic normal coordination, normal sensation - Musculoskeletal normal gait, normal posture - Psychiatric oriented to time, oriented to person, oriented to place, speech is normal, memory intact - Labs 10/02/19 09:26 10/01/19 14:23 Diabetes panel 10/01/19 Range/Units 14:23 Sodium 139 (133-145) mmol/L Potassium 3.7 (3.3-5.1) mmol/L Chloride 101 (96-108) mmol/L Carbon Dioxide 24 (22-30) mmol/L BUN 7 (6-20) mg/dl Creatinine 0.8 (0.7-1.2) mg/dl Glucose 82 (70-105) mg/dL Calcium 9.6 (8.6-10.4) mg/dl AST 22 (0-37) U/l ALT 37 (0-40) U/l Alkaline Phosphatase 96 (39-117) U/L Total Protein 7.3 (5.9-8.4) gm/dL Albumin 4.3 (3.2-5.2) gm/dL Calcium panel 10/01/19 Range/Units 14:23 Calcium 9.6 (8.6-10.4) mg/dl Albumin 4.3 (3.2-5.2) gm/dL Pituitary panel 10/01/19 Range/Units 14:23 Sodium 139 (133-145) mmol/L Potassium 3.7 (3.3-5.1) mmol/L Chloride 101 (96-108) mmol/L Carbon Dioxide 24 (22-30) mmol/L BUN 7 (6-20) mg/dl Creatinine 0.8 (0.7-1.2) mg/dl Glucose 82 (70-105) mg/dL Calcium 9.6 (8.6-10.4) mg/dl Adrenal panel 10/01/19 Range/Units 14:23 Sodium 139 (133-145) mmol/L Potassium 3.7 (3.3-5.1) mmol/L Chloride 101 (96-108) mmol/L Carbon Dioxide 24 (22-30) mmol/L BUN 7 (6-20) mg/dl Creatinine 0.8 (0.7-1.2) mg/dl Glucose 82 (70-105) mg/dL Calcium 9.6 (8.6-10.4) mg/dl Total Bilirubin 0.2 (0.0-1.0) mg/dL AST 22 (0-37) U/l ALT 37 (0-40) U/l Alkaline Phosphatase 96 (39-117) U/L Total Protein 7.3 (5.9-8.4) gm/dL Albumin 4.3 (3.2-5.2) gm/dL Assessment and Plan (1) Acute diverticulitis of intestine Status: Acute Current Visit: No (2) Bloody diarrhea Status: Acute Current Visit: No (3) Intractable abdominal pain Status: Acute Current Visit: No (4) Nausea and vomiting Status: Acute Current Visit: Yes - Time Spent With Patient Total time spent is greater than 50% in coordination of care (as documented) at patient's floor/unit and/or counseling patient:
[2019-10-03] MEDS: metroNIDAZOLE 500 MG/100 ML BAG IV SCH ×5 (00:20→23:32)
[2019-10-03] MEDS: 0.9 % SODIUM CHLORIDE 1,000 ML IV SCH ×5 (03:18→21:22)
[2019-10-03] MEDS: ONDANSETRON 4 MG/2 ML VIAL IV PRN ×2 (03:19→18:19)
[2019-10-03 06:20] LABS: Basophils # (Auto) 0.02 K/mcL (0.00-0.30); Basophils % (Auto) 0.3 % (0.0-2.0); Eosinophils # (Auto) 0.18 K/mcL (0.00-0.70); Eosinophils % (Auto) 2.9 % (0.0-7.0); Granulocytes % (Auto) 59.2 % (38.0-78.0); Hematocrit 39.8 % (40.1-51.0); Lymphocytes # (Auto) 1.89 K/mcL (1.50-4.80); Mean Cell Volume 89.8 fL (80.0-100.0); Mean Corpuscular HGB Conc 32.7 g/dL (31.0-36.0); Monocytes # (Auto) 0.48 K/mcL (0.10-0.90); Monocytes % (Auto) 7.6 % (1.0-12.0); Platelet Count 190 K/mcL (140-440); RBC 4.43 M/mcL (4.63-6.08); Red Cell Distribution Width 12.5 % (11.5-14.5); WBC 6.3 K/mcL (4.50-11.00)
[2019-10-03 06:31] LABS: INR 1.1 (0.9-1.1); Prothrombin Time 14.2 sec (11.9-14.5)
[2019-10-03 06:55] LABS: ALT/SGPT 23 U/l (0-40); AST/SGOT 18 U/l (0-37); Albumin 3.5 gm/dL (3.2-5.2); Albumin/Globulin Ratio 1.3 (1.0-2.3); Alkaline Phosphatase 78 U/L (39-117); Bilirubin,Total 0.2 mg/dL (0.0-1.0); Blood Urea Nitrogen 6 mg/dl (6-20); Calcium 8.6 mg/dl (8.6-10.4); Carbon Dioxide 22 mmol/L (22-30); Chloride 102 mmol/L (96-108); Globulin 2.7 gm/dL (2.2-3.7); Glomerular Filtration Rate 111; Glucose 73 mg/dL (70-105)
[2019-10-03] MEDS ORDERED: SCOPOLAMINE 1 PATCH PATCH TOPICAL PRN ×2 (07:30→11:10)
[2019-10-03] MEDS ORDERED: IPRATROPIUM/ALBUTEROL 3 ML AMPUL.NEB NEB PRN ×4 (07:30→11:10)
[2019-10-03] MEDS ORDERED: DEXAMETHASONE 10 MG/ML VIAL IV ONE (07:45)
[2019-10-03] MEDS ORDERED: ROCURONIUM 10 MG/ML ML IV ONE (07:45)
[2019-10-03] MEDS ORDERED: ONDANSETRON 4 MG/2 ML VIAL IV ONE (07:45)
[2019-10-03] MEDS ORDERED: SUGAMMADEX SODIUM 200 MG/2 ML VIAL IV ONE (07:45)
[2019-10-03] MEDS ORDERED: KETAMINE 100 MG/ML ML IV ONE (07:45)
[2019-10-03] MEDS ORDERED: PROPOFOL 200 MG/20 ML VIAL IV ONE (07:45)
[2019-10-03] MEDS ORDERED: CEFEPIME 1 GM VIAL IV SCH (07:45)
[2019-10-03] MEDS ORDERED: ROPIVACAINE HCL/PF 20 ML VIAL IJ ONE (07:45)
[2019-10-03] MEDS ORDERED: LIDOCAINE HCL/PF 100 MG/5 ML SYRINGE IV ONE (07:45)
[2019-10-03] MEDS ORDERED: fentaNYL 250 MCG/5 ML VIAL IV ONE (07:45)
[2019-10-03] MEDS: LEVOFLOXACIN 750 MG/150 ML BAG IV SCH (09:00)
[2019-10-03] MEDS ORDERED: ACETAMINOPHEN 1,000 MG/100 ML BOTTLE IV ONE (09:26)
[2019-10-03] MEDS ORDERED: ONDANSETRON 4 MG/2 ML VIAL IV PRN ×2 (09:26→11:10)
[2019-10-03] MEDS ORDERED: KETOROLAC 30 MG/ML VIAL IV PRN ×2 (09:26→11:10)
[2019-10-03] MEDS ORDERED: NALOXONE HCL 0.4 MG/ML VIAL IV PRN ×2 (09:26→11:10)
[2019-10-03] MEDS ORDERED: PROMETHAZINE 25 MG/ML VIAL IV PRN ×2 (09:26→11:10)
[2019-10-03] MEDS ORDERED: BENZOCAINE/MENTHOL 1 LOZENGE PO PRN ×2 (09:26→11:10)
[2019-10-03] MEDS ORDERED: MEPERIDINE 25 MG/ML SYRINGE IV PRN ×2 (09:26→11:10)
[2019-10-03] MEDS ORDERED: diphenhydrAMINE 50 MG/ML VIAL IV PRN ×2 (09:26→11:10)
[2019-10-03] MEDS ORDERED: LACTATED RINGERS 250 ML IV PRN ×2 (09:26→11:10)
[2019-10-03] MEDS ORDERED: LACTATED RINGERS 1,000 ML IV SCH ×2 (09:30→11:10)
--- NOTE | 2019-10-03 09:58 | Brief Operative Note ---
Date of procedure: 10/03/19 Pre-op diagnosis: ACUTE AND CHRONIC DIVERTICULITIS Post-op diagnosis: other (ACUTE AND CHRONIC DIVERTICULITIS WITH PELVIC ABSCESS) Procedure: SIGMOID COLECTOMY Grafts/Implants: No (#10 HILLARY DRAIN) Anesthesia: GETA Findings: LARGE HARD PHLEGMON IN PELVIS INCLUDING SIGMOID COLON ,BLADDER AND PELVIC SIDE WALL WITH SMALL CENTRAL ABSCESS Complications: none Surgeon: Aaron Wilson Estimated blood loss (cc): 25 Specimens Removed/Pathology: other (SIGMOID COLON SEGMENT) Condition: stable Disposition: PACU
[2019-10-03] MEDS: fentaNYL 100 MCG/2 ML VIAL IV PRN ×4 (10:22→10:43)
[2019-10-03] MEDS ORDERED: fentaNYL 100 MCG/2 ML VIAL IV PRN (11:10)
[2019-10-03] MEDS: HYDROmorphone 1 MG/ML SYRINGE IV PRN ×6 (12:12→22:36)
[2019-10-03] MEDS: ACETAMINOPHEN 1,000 MG/100 ML BOTTLE IV PRN (21:27)
[2019-10-04] MEDS: HYDROmorphone 1 MG/ML SYRINGE IV PRN ×10 (02:10→21:42)
[2019-10-04] MEDS: ACETAMINOPHEN 1,000 MG/100 ML BOTTLE IV PRN ×2 (04:10→16:42)
[2019-10-04] MEDS: 0.9 % SODIUM CHLORIDE 1,000 ML IV SCH ×4 (05:19→20:18)
[2019-10-04] MEDS: metroNIDAZOLE 500 MG/100 ML BAG IV SCH ×4 (05:57→23:58)
[2019-10-04 06:11] LABS: Basophils # (Auto) 0.01 K/mcL (0.00-0.30); Basophils % (Auto) 0.1 % (0.0-2.0); Eosinophils # (Auto) 0 K/mcL (0.00-0.70); Eosinophils % (Auto) 0 % (0.0-7.0); Granulocytes % (Auto) 88.8 % (38.0-78.0); Hematocrit 39.3 % (40.1-51.0); Hemoglobin 13.3 g/dL (13.7-17.5); Lymphocytes # (Auto) 1.15 K/mcL (1.50-4.80); Lymphocytes % (Auto) 6.1 % (15.5-49.0); Mean Cell Volume 88.7 fL (80.0-100.0); Mean Corpuscular HGB Conc 33.8 g/dL (31.0-36.0); Mean Platelet Volume 10.2 fL (7.4-10.4); Monocytes # (Auto) 0.93 K/mcL (0.10-0.90); Platelet Count 219 K/mcL (140-440); RBC 4.43 M/mcL (4.63-6.08); Red Cell Distribution Width 12.7 % (11.5-14.5); WBC 18.8 K/mcL (4.50-11.00)
[2019-10-04 06:30] LABS: ALT/SGPT 20 U/l (0-40); AST/SGOT 18 U/l (0-37); Albumin 3.4 gm/dL (3.2-5.2); Albumin/Globulin Ratio 1.1 (1.0-2.3); Alkaline Phosphatase 81 U/L (39-117); Bilirubin,Direct < 0.2 mg/dL (0.0-0.3); Bilirubin,Total 0.3 mg/dL (0.0-1.0); Blood Urea Nitrogen 11 mg/dl (6-20); Calcium 8.8 mg/dl (8.6-10.4); Carbon Dioxide 19 mmol/L (22-30); Chloride 101 mmol/L (96-108); Globulin 3.1 gm/dL (2.2-3.7); Glomerular Filtration Rate 111; Glucose 111 mg/dL (70-105); Lactate Dehydrogenase 196 U/L (94-250); Phosphorous 3.4 mg/dL (2.7-4.5); Triglycerides 63 mg/dl (<150); Uric Acid 6.6 mg/dL (2.5-8.0)
[2019-10-04] MEDS: LEVOFLOXACIN 750 MG/150 ML BAG IV SCH (08:22)
--- NOTE | 2019-10-04 13:44 | General Surgery Progress Note ---
Subjective Patient reports: feels better, still having pain, pain is less, no flatus, no bowel movement, afebrile Narrative: Note initiated : 10/04/19 at 1:41 pm Service Date, if different from initiated Date: [] Patient: Oziel Kraft 39 y/o M admitted on 10/01/19 for nausea, vomit, bloody stools. Chief Complaint: [patient is stable. He still has a moderate amount of incisional pain. He denies nausea. He has not had flatus or bowel movement. White blood count 18.8, hemoglobin 13.3, hematocr, BUN 11, creatinine 0.8.] Objective Temp Pulse Resp BP Pulse Ox 98.3 F 77 18 145/89 95 10/04/19 12:52 10/04/19 12:52 10/04/19 12:52 10/04/19 12:52 10/04/19 12:52 - Additional Data Intake & Output - Last 24 hours: Intake & Output 10/02/19 10/03/19 10/04/19 10/05/19 05:59 05:59 05:59 05:59 Intake Total 2775 7590 5530 250 Output Total 850 2125 4565 Balance 1925 5465 965 250 Weight 183 lb 1.6 oz 184 lb 8 oz 182 lb - General physical appearance well developed, well nourished, no distress, moderate pain - Eyes PERRL, normal ocular movement - ENT normal pinna, normal nares, normal mucosa, no hearing loss, no congestion - Neck no masses, no bruits, trachea midline, no lymphadenopathy, no venous distension - Respiratory normal expansion, normal respiratory effort, clear to auscultation - Cardiovascular Cardiovascular exam: Present: normal rate and rhythm, RRR, +S1, +S2. Absent: JVD, tachycardia - Abdomen tender (mild incisional tenderness), bowel sounds (; good active bowel sounds), surgical scars (; surgical incision is unremarkable) - Integumentary no rash, no growths, no abnormal pigmentation - Neurologic normal coordination, normal sensation - Musculoskeletal normal gait, normal posture - Psychiatric oriented to time, oriented to person, oriented to place, speech is normal, memory intact - Labs 10/04/19 05:15 10/04/19 05:15 Diabetes panel 10/04/19 Range/Units 05:15 Sodium 137 (133-145) mmol/L Potassium 3.8 (3.3-5.1) mmol/L Chloride 101 (96-108) mmol/L Carbon Dioxide 19 L (22-30) mmol/L BUN 11 (6-20) mg/dl Creatinine 0.8 (0.7-1.2) mg/dl Glucose 111 H (70-105) mg/dL Calcium 8.8 (8.6-10.4) mg/dl AST 18 (0-37) U/l ALT 20 (0-40) U/l Alkaline Phosphatase 81 (39-117) U/L Total Protein 6.5 (5.9-8.4) gm/dL Albumin 3.4 (3.2-5.2) gm/dL Triglycerides 63 (<150) mg/dl Calcium panel 10/04/19 Range/Units 05:15 Calcium 8.8 (8.6-10.4) mg/dl Phosphorus 3.4 (2.7-4.5) mg/dL Albumin 3.4 (3.2-5.2) gm/dL Pituitary panel 10/04/19 Range/Units 05:15 Sodium 137 (133-145) mmol/L Potassium 3.8 (3.3-5.1) mmol/L Chloride 101 (96-108) mmol/L Carbon Dioxide 19 L (22-30) mmol/L BUN 11 (6-20) mg/dl Creatinine 0.8 (0.7-1.2) mg/dl Glucose 111 H (70-105) mg/dL Calcium 8.8 (8.6-10.4) mg/dl Adrenal panel 10/04/19 Range/Units 05:15 Sodium 137 (133-145) mmol/L Potassium 3.8 (3.3-5.1) mmol/L Chloride 101 (96-108) mmol/L Carbon Dioxide 19 L (22-30) mmol/L BUN 11 (6-20) mg/dl Creatinine 0.8 (0.7-1.2) mg/dl Glucose 111 H (70-105) mg/dL Calcium 8.8 (8.6-10.4) mg/dl Total Bilirubin 0.3 (0.0-1.0) mg/dL AST 18 (0-37) U/l ALT 20 (0-40) U/l Alkaline Phosphatase 81 (39-117) U/L Total Protein 6.5 (5.9-8.4) gm/dL Albumin 3.4 (3.2-5.2) gm/dL Assessment and Plan (1) Acute diverticulitis of intestine Status: Resolved Assessment and plan: Patient is clinically stable Current Visit: No (2) Bloody diarrhea Status: Resolved Current Visit: No (3) Intractable abdominal pain Status: Resolved Current Visit: No (4) Nausea and vomiting Status: Resolved Current Visit: Yes - Time Spent With Patient Total time spent is greater than 50% in coordination of care (as documented) at patient's floor/unit and/or counseling patient:
[2019-10-04] MEDS ORDERED: BENZOCAINE 1 SPRAY BOTTLE TOPICAL PRN (13:45)
[2019-10-05] MEDS: HYDROmorphone 1 MG/ML SYRINGE IV PRN ×11 (00:05→22:08)
[2019-10-05] MEDS: 0.9 % SODIUM CHLORIDE 1,000 ML IV SCH ×3 (03:54→14:58)
[2019-10-05] MEDS: metroNIDAZOLE 500 MG/100 ML BAG IV SCH ×4 (05:39→23:37)
[2019-10-05] MEDS: ONDANSETRON 4 MG/2 ML VIAL IV PRN ×3 (05:40→20:13)
[2019-10-05 06:55] LABS: Basophils # (Auto) 0.02 K/mcL (0.00-0.30); Basophils % (Auto) 0.1 % (0.0-2.0); Eosinophils # (Auto) 0.01 K/mcL (0.00-0.70); Eosinophils % (Auto) 0.1 % (0.0-7.0); Hematocrit 38.6 % (40.1-51.0); Hemoglobin 12.9 g/dL (13.7-17.5); Lymphocytes # (Auto) 2.94 K/mcL (1.50-4.80); Lymphocytes % (Auto) 19.3 % (15.5-49.0); Mean Cell Volume 88.9 fL (80.0-100.0); Mean Corpuscular HGB Conc 33.4 g/dL (31.0-36.0); Mean Platelet Volume 10.2 fL (7.4-10.4); Monocytes # (Auto) 0.99 K/mcL (0.10-0.90); Monocytes % (Auto) 6.5 % (1.0-12.0); Platelet Count 183 K/mcL (140-440); RBC 4.34 M/mcL (4.63-6.08); Red Cell Distribution Width 12.8 % (11.5-14.5); WBC 15.2 K/mcL (4.50-11.00)
[2019-10-05 07:11] LABS: ALT/SGPT 22 U/l (0-40); AST/SGOT 24 U/l (0-37); Albumin 3.5 gm/dL (3.2-5.2); Albumin/Globulin Ratio 1.3 (1.0-2.3); Alkaline Phosphatase 74 U/L (39-117); Bilirubin,Direct < 0.2 mg/dL (0.0-0.3); Bilirubin,Total 0.2 mg/dL (0.0-1.0); Blood Urea Nitrogen 9 mg/dl (6-20); Calcium 8.4 mg/dl (8.6-10.4); Chloride 101 mmol/L (96-108); Globulin 2.6 gm/dL (2.2-3.7); Glomerular Filtration Rate 117; Glucose 83 mg/dL (70-105); Lactate Dehydrogenase 204 U/L (94-250); Triglycerides 138 mg/dl (<150); Uric Acid 6.5 mg/dL (2.5-8.0)
[2019-10-05 07:13] LABS: Carbon Dioxide 23 mmol/L (22-30); Phosphorous 1.5 mg/dL (2.7-4.5)
[2019-10-05] MEDS: LEVOFLOXACIN 750 MG/150 ML BAG IV SCH (08:42)
[2019-10-05] MEDS: PROMETHAZINE 25 MG/ML VIAL IV PRN (09:09)
[2019-10-05] MEDS ORDERED: MAGNESIUM SULFATE 32.48 MEQ in DEXTROSE 5% IN WATER 50 ML IV ONE (14:13)
--- NOTE | 2019-10-05 14:16 | General Surgery Progress Note ---
Subjective Patient reports: still having pain, pain is less, no flatus, no bowel movement, nausea, afebrile Narrative: Note initiated : 10/05/19 at 2:14 pm Service Date, if different from initiated Date: [] Patient: Oziel Kraft 39 y/o M admitted on 10/01/19 for nausea, vomit, bloody stools. Chief Complaint: [Patient is doing well. He has some incisional pain, which is not anticipated. He has mild nausea but no vomiting. Urine output is excellent. White blood count 15.2, hemoglobin 12.9, hematocrit 30.6, phosphorus 1.5, potassium 3.4, magnesium 1.9.] Objective Temp Pulse Resp BP Pulse Ox 99.1 F H 82 22 157/98 95 10/05/19 11:24 10/05/19 11:24 10/05/19 08:00 10/05/19 11:24 10/05/19 11:24 - Additional Data Intake & Output - Last 24 hours: Intake & Output 10/03/19 10/04/19 10/05/19 10/06/19 05:59 05:59 05:59 05:59 Intake Total 7590 5530 2790 350 Output Total 2125 4565 3658 Balance 5465 965 -868 350 Weight 184 lb 8 oz 182 lb 178 lb - General physical appearance well developed, well nourished, no distress, moderate pain - Eyes PERRL, normal ocular movement - ENT normal pinna, normal nares, normal mucosa, no hearing loss, no congestion - Neck no masses, no bruits, trachea midline, no lymphadenopathy, no venous distension - Respiratory normal expansion, normal respiratory effort, clear to auscultation - Cardiovascular Cardiovascular exam: Present: normal rate and rhythm, RRR, +S1, +S2. Absent: JVD, tachycardia - Abdomen tender (mild incisional tenderness; good active bowel sounds; incision looks good), bowel sounds (present), surgical scars (none), masses (none) - Integumentary no rash, no growths, no abnormal pigmentation - Neurologic normal coordination, normal sensation - Musculoskeletal normal gait, normal posture - Psychiatric oriented to time, oriented to person, oriented to place, speech is normal, memory intact - Labs 10/05/19 05:25 10/05/19 05:25 Diabetes panel 10/05/19 Range/Units 05:25 Sodium 139 (133-145) mmol/L Potassium 3.4 (3.3-5.1) mmol/L Chloride 101 (96-108) mmol/L Carbon Dioxide 23 (22-30) mmol/L BUN 9 (6-20) mg/dl Creatinine 0.7 (0.7-1.2) mg/dl Glucose 83 (70-105) mg/dL Calcium 8.4 L (8.6-10.4) mg/dl AST 24 (0-37) U/l ALT 22 (0-40) U/l Alkaline Phosphatase 74 (39-117) U/L Total Protein 6.1 (5.9-8.4) gm/dL Albumin 3.5 (3.2-5.2) gm/dL Triglycerides 138 (<150) mg/dl Calcium panel 10/05/19 Range/Units 05:25 Calcium 8.4 L (8.6-10.4) mg/dl Phosphorus 1.5 L (2.7-4.5) mg/dL Albumin 3.5 (3.2-5.2) gm/dL Pituitary panel 10/05/19 Range/Units 05:25 Sodium 139 (133-145) mmol/L Potassium 3.4 (3.3-5.1) mmol/L Chloride 101 (96-108) mmol/L Carbon Dioxide 23 (22-30) mmol/L BUN 9 (6-20) mg/dl Creatinine 0.7 (0.7-1.2) mg/dl Glucose 83 (70-105) mg/dL Calcium 8.4 L (8.6-10.4) mg/dl Adrenal panel 10/05/19 Range/Units 05:25 Sodium 139 (133-145) mmol/L Potassium 3.4 (3.3-5.1) mmol/L Chloride 101 (96-108) mmol/L Carbon Dioxide 23 (22-30) mmol/L BUN 9 (6-20) mg/dl Creatinine 0.7 (0.7-1.2) mg/dl Glucose 83 (70-105) mg/dL Calcium 8.4 L (8.6-10.4) mg/dl Total Bilirubin 0.2 (0.0-1.0) mg/dL AST 24 (0-37) U/l ALT 22 (0-40) U/l Alkaline Phosphatase 74 (39-117) U/L Total Protein 6.1 (5.9-8.4) gm/dL Albumin 3.5 (3.2-5.2) gm/dL Assessment and Plan (1) Acute diverticulitis of intestine Status: Resolved Assessment and plan: Patient is clinically stable Current Visit: No (2) Bloody diarrhea Status: Resolved Current Visit: No (3) Intractable abdominal pain Status: Resolved Current Visit: No (4) Nausea and vomiting Status: Resolved Current Visit: Yes - Time Spent With Patient Total time spent is greater than 50% in coordination of care (as documented) at patient's floor/unit and/or counseling patient:
[2019-10-05] MEDS ORDERED: MAGNESIUM SULFATE 4 GM/100 ML BAG IV ONE (14:30)
[2019-10-05] MEDS: POTASSIUM PHOSPHATE 40 MEQ in DEXTROSE 5% IN WATER 500 ML IV SCH ×2 (15:16→19:22)
[2019-10-05] MEDS: ACETAMINOPHEN 1,000 MG/100 ML BOTTLE IV PRN (19:36)
[2019-10-06] MEDS: ONDANSETRON 4 MG/2 ML VIAL IV PRN ×4 (00:09→19:57)
[2019-10-06] MEDS: HYDROmorphone 1 MG/ML SYRINGE IV PRN ×9 (00:09→21:00)
[2019-10-06] MEDS: PROMETHAZINE 25 MG/ML VIAL IV PRN ×2 (03:08→21:05)
[2019-10-06] MEDS: 0.9 % SODIUM CHLORIDE 1,000 ML IV SCH ×3 (03:18→22:21)
[2019-10-06] MEDS: metroNIDAZOLE 500 MG/100 ML BAG IV SCH ×3 (06:02→18:09)
[2019-10-06 06:24] LABS: ALT/SGPT 18 U/l (0-40); AST/SGOT 19 U/l (0-37); Albumin 3.4 gm/dL (3.2-5.2); Alkaline Phosphatase 82 U/L (39-117); Bilirubin,Direct < 0.2 mg/dL (0.0-0.3); Bilirubin,Total 0.4 mg/dL (0.0-1.0); Blood Urea Nitrogen 6 mg/dl (6-20); Calcium 8.8 mg/dl (8.6-10.4); Carbon Dioxide 24 mmol/L (22-30); Chloride 99 mmol/L (96-108); Globulin 3.3 gm/dL (2.2-3.7); Glomerular Filtration Rate 117; Glucose 91 mg/dL (70-105); Lactate Dehydrogenase 241 U/L (94-250); Triglycerides 145 mg/dl (<150); Uric Acid 6.1 mg/dL (2.5-8.0)
[2019-10-06 06:29] LABS: Phosphorous 3.4 mg/dL (2.7-4.5)
--- NOTE | 2019-10-06 07:31 | Operative Note ---
DATE OF OPERATION: 10/03/2019 PREOPERATIVE DIAGNOSIS: Acute and chronic diverticulitis. POSTOPERATIVE DIAGNOSIS: Acute and chronic diverticulitis with pelvic abscess. SURGEON: Aaron Wilson M.D. PROCEDURE: Sigmoid colectomy with primary reanastomosis. FINDINGS: Large hard phlegmon in the pelvis involving the sigmoid colon, bladder and the left lateral pelvic sidewall with a small central abscess. BLOOD LOSS: 25 mL DESCRIPTION OF PROCEDURE: Under general anesthesia, the patient's abdomen was prepped and draped in a sterile field. A midline incision was made. There was a large hard phlegmon in the pelvis that involved the sigmoid colon, the bladder and the left lateral pelvic sidewall. It was densely adherent to the lateral pelvic wall. The other bowel was unremarkable. There was some involvement of the bladder. Upper abdomen was unremarkable. The abdomen was packed off and the Ganado retractor was placed. Using blunt dissection and electrocautery, the large inflammatory mass was from the lateral pelvic sidewall and the bladder. Care was taken not to injure the colon and to try to prevent as much fecal contamination as possible. In the mid portion of the phlegmon I entered a small abscess cavity. This was copiously irrigated after it was cultured. The rest of the thickened indurated colon was from the bladder and the pelvic sidewall. Once this was done, the colon was mobilized proximally up to the descending colon. The colon was divided proximal and distal to the inflammatory mass. The mesocolon was divided using the Voyant electrocautery device. The mass was passed off. It appeared to be inflammatory without any clinical evidence of malignancy, though the specimen was not opened because of the purulence encountered. The distal segment which was divided immediately above the pelvic reflection was dissected to give more length. The proximal segment was dissected medially for increased laxity. The end of the proximal segment was double stapled using a TA 60 stapler. The end of the distal segment was sutured to the side of the proximal segment using an initial outer layer of 2-0 Prolene. The stapled end of the distal segment was removed. The distal segment cavity was irrigated without creating contamination. The full thickness of the wall of the distal segment was sutured to the linear longitudinal fibers using a 2-0 Prolene. A longitudinal incision was made until the cavity was entered. The edges were grasped with Allis clamps. The posterior wall was then sutured to the full thickness of the proximal bowel using a running locking 2-0 Monocryl. An inverting canal stitch was then placed circumferentially and tied. Anterior row of 2-0 Prolene was placed, taking four bites to get good closure. The mesenteric defect was closed with 2-0 Vicryl. A 10 Yang drain was placed and brought out through a separate stab wound in the left lower quadrant. The drain was positioned in the area of the inflamed tissue and the superficial pelvis along the lateral sidewall and the posterior portion of the lateral bladder on the left. Copious irrigation was carried out. Sponge, needle, instrument and blade counts were verified as correct. Fascia and peritoneum were closed with #1 Prolene. Subcutaneous tissue was closed with 2-0 Monocryl. Skin was closed with jana. Drain was secured with 2-0 nylon. Tegaderm dressing was placed. The patient tolerated the procedure well. He was awakened, extubated, and transferred to a bed, and taken to the postanesthetic care unit in stable, satisfactory condition. LCS:glenys Job ID: [id number] Doc ID: [id number] Aaron Wilson M.D.
[2019-10-06] MEDS: ACETAMINOPHEN 1,000 MG/100 ML BOTTLE IV PRN (08:34)
[2019-10-06] MEDS: LEVOFLOXACIN 750 MG/150 ML BAG IV SCH (10:43)
--- NOTE | 2019-10-06 12:48 | Surgical Pathology Report ---
HISTOLOGY SPECIMEN MICROSCOPIC DIAGNOSIS COLON, SIGMOID, SEGMENTAL RESECTION: -- SEVERE DIVERTICULAR DISEASE WITH PERFORATION, PARACOLONIC ABSCESS, FIBROSIS AND ACUTE PERITONITIS. -- 10 PARACOLONIC LYMPH NODES WITH FOLLICULAR HYPERPLASIA AND REACTIVE CHANGE. -- FIBROUS SEROSAL ADHESIONS. -- NO NEOPLASIA OR MALIGNANCY IDENTIFIED. -- SURGICAL MARGINS APPEAR VIABLE. (ACP:sln) PROCEDURAL IMPRESSION Diverticulitis with perforation and abscess. GROSS DESCRIPTION Received in formalin labeled sigmoid colon, is a segment of colon closed with staple lines at both ends. The segment measures 11 cm in length by 4.5 cm in diameter and has up to 5 cm of attached avila-yellow adipose tissue. One surface demonstrates white-avila exudate and fibrous adhesions; this region is inked black. Upon opening, the mucosal surface has the normal avila mucosal folds and multiple diverticula. The wall is thickened up to 1.5 cm in thickness. The specimen is unoriented. One margin is inked black. No definite perforation is grossly identified. Multiple lymph nodes are identified in the attached adipose tissue. Supervisor Adult Education sections are submitted as follows: A1 - margins; A2 - section of diverticula; A3-A4 - sections of fibrous adhesion in exudate region on the serosal surface; A5 - additional section of colonic mucosa; A6-A7 - lymph nodes. (RLF:adj) Electronically Signed by: Rosas Huitron M.D.
--- NOTE | 2019-10-06 16:37 | General Surgery Progress Note ---
Subjective Patient reports: feels better, no flatus, no bowel movement, afebrile Narrative: Note initiated : 10/06/19 at 4:35 pm Service Date, if different from initiated Date: [] Patient: Oziel Kraft 39 y/o M admitted on 10/01/19 for nausea, vomit, bloody stools. Chief Complaint: [patient is stable. He has not had any flatus. he denies nausea. He had some difficulty with voiding and Dennis catheter had to be repl aced. His postvoid residual was over 700 cc.] Objective Temp Pulse Resp BP Pulse Ox 97.8 F 93 H 20 155/98 96 10/06/19 12:00 10/06/19 12:00 10/06/19 12:00 10/06/19 12:00 10/06/19 12:00 - Additional Data Intake & Output - Last 24 hours: Intake & Output 10/04/19 10/05/19 10/06/19 10/07/19 05:59 05:59 05:59 05:59 Intake Total 5530 2790 3868.1818 450 Output Total 4565 3658 5395 1200 Balance 965 -868 -1526.8182 -750 Weight 182 lb 178 lb 178 lb - General physical appearance well developed, well nourished, no distress - Eyes PERRL, normal ocular movement - ENT normal pinna, normal nares, normal mucosa, no hearing loss, no congestion - Neck no masses, no bruits, trachea midline, no lymphadenopathy, no venous distension - Respiratory normal expansion, normal respiratory effort, clear to auscultation - Cardiovascular Cardiovascular exam: Present: normal rate and rhythm, RRR, +S1, +S2. Absent: JVD, tachycardia - Abdomen tender (mild incisional tenderness; good active bowel sounds; incision looks good), bowel sounds (present), surgical scars (none), masses (none) - Integumentary no rash, no growths, no abnormal pigmentation - Neurologic normal coordination, normal sensation - Musculoskeletal normal gait, normal posture - Psychiatric oriented to time, oriented to person, oriented to place, speech is normal, memory intact - Labs 10/05/19 05:25 10/06/19 05:05 Diabetes panel 10/06/19 Range/Units 05:05 Sodium 139 (133-145) mmol/L Potassium 3.9 (3.3-5.1) mmol/L Chloride 99 (96-108) mmol/L Carbon Dioxide 24 (22-30) mmol/L BUN 6 (6-20) mg/dl Creatinine 0.7 (0.7-1.2) mg/dl Glucose 91 (70-105) mg/dL Calcium 8.8 (8.6-10.4) mg/dl AST 19 (0-37) U/l ALT 18 (0-40) U/l Alkaline Phosphatase 82 (39-117) U/L Total Protein 6.7 (5.9-8.4) gm/dL Albumin 3.4 (3.2-5.2) gm/dL Triglycerides 145 (<150) mg/dl Calcium panel 10/06/19 Range/Units 05:05 Calcium 8.8 (8.6-10.4) mg/dl Phosphorus 3.4 (2.7-4.5) mg/dL Albumin 3.4 (3.2-5.2) gm/dL Pituitary panel 10/06/19 Range/Units 05:05 Sodium 139 (133-145) mmol/L Potassium 3.9 (3.3-5.1) mmol/L Chloride 99 (96-108) mmol/L Carbon Dioxide 24 (22-30) mmol/L BUN 6 (6-20) mg/dl Creatinine 0.7 (0.7-1.2) mg/dl Glucose 91 (70-105) mg/dL Calcium 8.8 (8.6-10.4) mg/dl Adrenal panel 10/06/19 Range/Units 05:05 Sodium 139 (133-145) mmol/L Potassium 3.9 (3.3-5.1) mmol/L Chloride 99 (96-108) mmol/L Carbon Dioxide 24 (22-30) mmol/L BUN 6 (6-20) mg/dl Creatinine 0.7 (0.7-1.2) mg/dl Glucose 91 (70-105) mg/dL Calcium 8.8 (8.6-10.4) mg/dl Total Bilirubin 0.4 (0.0-1.0) mg/dL AST 19 (0-37) U/l ALT 18 (0-40) U/l Alkaline Phosphatase 82 (39-117) U/L Total Protein 6.7 (5.9-8.4) gm/dL Albumin 3.4 (3.2-5.2) gm/dL Assessment and Plan (1) Acute diverticulitis of intestine Status: Resolved Assessment and plan: Patient is clinically stable Current Visit: No (2) Bloody diarrhea Status: Resolved Current Visit: No (3) Intractable abdominal pain Status: Resolved Current Visit: No (4) Nausea and vomiting Status: Resolved Current Visit: Yes - Time Spent With Patient Total time spent is greater than 50% in coordination of care (as documented) at patient's floor/unit and/or counseling patient:
[2019-10-07] MEDS: metroNIDAZOLE 500 MG/100 ML BAG IV SCH ×4 (00:09→17:30)
[2019-10-07] MEDS: HYDROmorphone 1 MG/ML SYRINGE IV PRN ×10 (00:09→22:12)
[2019-10-07] MEDS: ONDANSETRON 4 MG/2 ML VIAL IV PRN ×5 (00:21→20:20)
[2019-10-07] MEDS: PROMETHAZINE 25 MG/ML VIAL IV PRN ×2 (02:39→22:12)
[2019-10-07 06:36] LABS: ALT/SGPT 16 U/l (0-40); AST/SGOT 16 U/l (0-37); Albumin 3.3 gm/dL (3.2-5.2); Alkaline Phosphatase 83 U/L (39-117); Bilirubin,Direct 0.3 mg/dL (0.0-0.3); Bilirubin,Total 0.7 mg/dL (0.0-1.0); Blood Urea Nitrogen 9 mg/dl (6-20); Calcium 9.2 mg/dl (8.6-10.4); Carbon Dioxide 24 mmol/L (22-30); Chloride 99 mmol/L (96-108); Globulin 3.3 gm/dL (2.2-3.7); Glomerular Filtration Rate 117; Glucose 82 mg/dL (70-105); Lactate Dehydrogenase 173 U/L (94-250); Phosphorous 3.3 mg/dL (2.7-4.5); Triglycerides 154 mg/dl (<150); Uric Acid 7.3 mg/dL (2.5-8.0)
[2019-10-07] MEDS: LEVOFLOXACIN 750 MG/150 ML BAG IV SCH (09:25)
[2019-10-07] MEDS: 0.9 % SODIUM CHLORIDE 1,000 ML IV SCH ×4 (14:45→22:21)
--- NOTE | 2019-10-07 15:20 | General Surgery Progress Note ---
Subjective Patient reports: feels better, pain is less, no flatus, no bowel movement, afebrile Narrative: Note initiated : 10/07/19 at 3:17 pm Service Date, if different from initiated Date: [] Patient: Oziel Kraft 39 y/o M admitted on 10/01/19 for nausea, vomit, bloody stools. Chief Complaint: [] Objective Temp Pulse Resp BP Pulse Ox 97.7 F 92 H 20 140/97 94 10/07/19 12:00 10/07/19 12:00 10/07/19 12:00 10/07/19 12:00 10/07/19 12:00 - Additional Data Intake & Output - Last 24 hours: Intake & Output 10/05/19 10/06/19 10/07/19 10/08/19 05:59 05:59 05:59 05:59 Intake Total 2790 3868.1818 1650 1350 Output Total 3658 5395 3302 Balance -868 -1526.8182 -1652 1350 Weight 178 lb 178 lb 178 lb 8 oz - General physical appearance well developed, well nourished, no distress - Eyes PERRL, normal ocular movement - ENT normal pinna, normal nares, normal mucosa, no hearing loss, no congestion - Neck no masses, no bruits, trachea midline, no lymphadenopathy, no venous distension - Respiratory normal expansion, normal respiratory effort, clear to percussion, clear to auscultation - Cardiovascular Cardiovascular exam: Present: normal rate and rhythm, RRR, +S1, +S2. Absent: JVD, tachycardia - Abdomen non tender, bowel sounds (patient has good active bowel sounds. Incision looks good. There is minimal WES drainage.), surgical scars (none), masses (none) Hernia: none - Integumentary no rash, no growths, no abnormal pigmentation - Neurologic normal coordination, normal sensation - Musculoskeletal normal gait, normal posture - Psychiatric oriented to time, oriented to person, oriented to place, speech is normal, memory intact - Labs 10/05/19 05:25 10/07/19 05:25 Diabetes panel 10/07/19 Range/Units 05:25 Sodium 140 (133-145) mmol/L Potassium 3.7 (3.3-5.1) mmol/L Chloride 99 (96-108) mmol/L Carbon Dioxide 24 (22-30) mmol/L BUN 9 (6-20) mg/dl Creatinine 0.7 (0.7-1.2) mg/dl Glucose 82 (70-105) mg/dL Calcium 9.2 (8.6-10.4) mg/dl AST 16 (0-37) U/l ALT 16 (0-40) U/l Alkaline Phosphatase 83 (39-117) U/L Total Protein 6.6 (5.9-8.4) gm/dL Albumin 3.3 (3.2-5.2) gm/dL Triglycerides 154 H (<150) mg/dl Calcium panel 10/07/19 Range/Units 05:25 Calcium 9.2 (8.6-10.4) mg/dl Phosphorus 3.3 (2.7-4.5) mg/dL Albumin 3.3 (3.2-5.2) gm/dL Pituitary panel 10/07/19 Range/Units 05:25 Sodium 140 (133-145) mmol/L Potassium 3.7 (3.3-5.1) mmol/L Chloride 99 (96-108) mmol/L Carbon Dioxide 24 (22-30) mmol/L BUN 9 (6-20) mg/dl Creatinine 0.7 (0.7-1.2) mg/dl Glucose 82 (70-105) mg/dL Calcium 9.2 (8.6-10.4) mg/dl Adrenal panel 10/07/19 Range/Units 05:25 Sodium 140 (133-145) mmol/L Potassium 3.7 (3.3-5.1) mmol/L Chloride 99 (96-108) mmol/L Carbon Dioxide 24 (22-30) mmol/L BUN 9 (6-20) mg/dl Creatinine 0.7 (0.7-1.2) mg/dl Glucose 82 (70-105) mg/dL Calcium 9.2 (8.6-10.4) mg/dl Total Bilirubin 0.7 (0.0-1.0) mg/dL AST 16 (0-37) U/l ALT 16 (0-40) U/l Alkaline Phosphatase 83 (39-117) U/L Total Protein 6.6 (5.9-8.4) gm/dL Albumin 3.3 (3.2-5.2) gm/dL Assessment and Plan (1) Acute diverticulitis of intestine Status: Resolved Assessment and plan: Patient is clinically stable Still waiting for better small bowel and colonic activity before discontinuation nasogastric tube. Will check abdominal series in the morning Current Visit: No (2) Bloody diarrhea Status: Resolved Current Visit: No (3) Intractable abdominal pain Status: Resolved Current Visit: No (4) Nausea and vomiting Status: Resolved Current Visit: Yes - Time Spent With Patient Total time spent is greater than 50% in coordination of care (as documented) at patient's floor/unit and/or counseling patient:
[2019-10-08] MEDS: HYDROmorphone 1 MG/ML SYRINGE IV PRN ×10 (00:01→23:56)
[2019-10-08] MEDS: ONDANSETRON 4 MG/2 ML VIAL IV PRN ×3 (00:01→15:34)
[2019-10-08] MEDS: metroNIDAZOLE 500 MG/100 ML BAG IV SCH ×5 (00:04→23:31)
[2019-10-08 06:47] LABS: ALT/SGPT 15 U/l (0-40); AST/SGOT 16 U/l (0-37); Albumin 3.5 gm/dL (3.2-5.2); Albumin/Globulin Ratio 1.1 (1.0-2.3); Alkaline Phosphatase 125 U/L (39-117); Bilirubin,Direct 0.3 mg/dL (0.0-0.3); Bilirubin,Total 0.6 mg/dL (0.0-1.0); Blood Urea Nitrogen 10 mg/dl (6-20); Carbon Dioxide 22 mmol/L (22-30); Chloride 102 mmol/L (96-108); Globulin 3.1 gm/dL (2.2-3.7); Glomerular Filtration Rate 117; Glucose 81 mg/dL (70-105); Lactate Dehydrogenase 173 U/L (94-250); Phosphorous 3.2 mg/dL (2.7-4.5); Triglycerides 156 mg/dl (<150); Uric Acid 8.5 mg/dL (2.5-8.0)
--- NOTE | 2019-10-08 08:16 | XRay Report ---
HISTORY: Follow-up ileus FINDINGS: The bowel gas pattern is normal without evidence of ileus or obstruction. No free intra-abdominal air is present. There is nasogastric tube passing through the esophagus into the distal second portion of duodenum. There is also a surgical drain in the left side and midline of the pelvis. There are surgical skin jana in the midline of the lower abdomen. Postoperative changes are also seen following prior fusion at L5-S1. There are bands of discoid atelectasis in both lung bases, right greater than left. IMPRESSION: Normal bowel pattern Interpreted and Authenticated by: Medhat Huitron 10/08/19
[2019-10-08 09:24] LABS: Basophils # (Auto) 0.03 K/mcL (0.00-0.30); Basophils % (Auto) 0.3 % (0.0-2.0); Eosinophils # (Auto) 0.36 K/mcL (0.00-0.70); Eosinophils % (Auto) 3.2 % (0.0-7.0); Granulocytes % (Auto) 72.5 % (38.0-78.0); Hematocrit 40.7 % (40.1-51.0); Hemoglobin 13.8 g/dL (13.7-17.5); Lymphocytes # (Auto) 1.87 K/mcL (1.50-4.80); Lymphocytes % (Auto) 16.6 % (15.5-49.0); Mean Cell Volume 88.3 fL (80.0-100.0); Mean Corpuscular HGB Conc 33.9 g/dL (31.0-36.0); Mean Platelet Volume 10.3 fL (7.4-10.4); Monocytes # (Auto) 0.84 K/mcL (0.10-0.90); Monocytes % (Auto) 7.4 % (1.0-12.0); Platelet Count 220 K/mcL (140-440); RBC 4.61 M/mcL (4.63-6.08); Red Cell Distribution Width 12.8 % (11.5-14.5); WBC 11.3 K/mcL (4.50-11.00)
[2019-10-08] MEDS: 0.9 % SODIUM CHLORIDE 1,000 ML IV SCH ×3 (09:27→20:15)
[2019-10-08] MEDS: LEVOFLOXACIN 750 MG/150 ML BAG IV SCH (09:27)
[2019-10-08] MEDS: METOCLOPRAMIDE 10 MG/2 ML VIAL IV SCH ×4 (09:30→23:30)
--- NOTE | 2019-10-08 11:33 | General Surgery Progress Note ---
Subjective Patient reports: feels better, pain is less, no flatus, no bowel movement, afebrile Narrative: Note initiated : 10/08/19 at 11:31 am Service Date, if different from initiated Date: [] Patient: Oziel Kraft 39 y/o M admitted on 10/01/19 for nausea, vomit, bloody stools. Chief Complaint: [patient is doing well. He states that he has not had flatus, however, his abdominal x-ray shows no small bowel distention with minimal gas in his colon extending down to his rectum. White count 11.3, hemoglobin 13.8, h ematocrit 40.7.] Objective Temp Pulse Resp BP Pulse Ox 98.3 F 76 18 147/93 94 10/08/19 07:40 10/08/19 08:00 10/08/19 08:00 10/08/19 07:40 10/08/19 08:00 - Additional Data Intake & Output - Last 24 hours: Intake & Output 10/06/19 10/07/19 10/08/19 10/09/19 05:59 05:59 05:59 05:59 Intake Total 3868.1818 1650 3600 100 Output Total 5395 3302 2590 Balance -1526.8182 -1652 1010 100 Weight 178 lb 178 lb 8 oz 169 lb 8 oz - General physical appearance well developed, well nourished, no distress - Eyes PERRL, normal ocular movement - ENT normal pinna, normal nares, normal mucosa, no hearing loss, no congestion - Neck no masses, no bruits, trachea midline, no lymphadenopathy, no venous distension - Respiratory normal expansion, normal respiratory effort, clear to auscultation - Cardiovascular Cardiovascular exam: Present: normal rate and rhythm, +S1, +S2. Absent: JVD, RRR, tachycardia - Abdomen tender (mild incisional tenderness; good active bowel sounds; incision looks good), bowel sounds (present), surgical scars (none), masses (none) - Integumentary no rash, no growths, no abnormal pigmentation - Neurologic normal coordination, normal sensation - Musculoskeletal normal gait, normal posture - Psychiatric oriented to time, oriented to person, oriented to place, speech is normal, memory intact - Labs 10/08/19 07:49 10/08/19 05:17 Diabetes panel 10/08/19 Range/Units 05:17 Sodium 140 (133-145) mmol/L Potassium 4.0 (3.3-5.1) mmol/L Chloride 102 (96-108) mmol/L Carbon Dioxide 22 (22-30) mmol/L BUN 10 (6-20) mg/dl Creatinine 0.7 (0.7-1.2) mg/dl Glucose 81 (70-105) mg/dL Calcium 9.0 (8.6-10.4) mg/dl AST 16 (0-37) U/l ALT 15 (0-40) U/l Alkaline Phosphatase 125 H (39-117) U/L Total Protein 6.6 (5.9-8.4) gm/dL Albumin 3.5 (3.2-5.2) gm/dL Triglycerides 156 H (<150) mg/dl Calcium panel 10/08/19 Range/Units 05:17 Calcium 9.0 (8.6-10.4) mg/dl Phosphorus 3.2 (2.7-4.5) mg/dL Albumin 3.5 (3.2-5.2) gm/dL Pituitary panel 10/08/19 Range/Units 05:17 Sodium 140 (133-145) mmol/L Potassium 4.0 (3.3-5.1) mmol/L Chloride 102 (96-108) mmol/L Carbon Dioxide 22 (22-30) mmol/L BUN 10 (6-20) mg/dl Creatinine 0.7 (0.7-1.2) mg/dl Glucose 81 (70-105) mg/dL Calcium 9.0 (8.6-10.4) mg/dl Adrenal panel 10/08/19 Range/Units 05:17 Sodium 140 (133-145) mmol/L Potassium 4.0 (3.3-5.1) mmol/L Chloride 102 (96-108) mmol/L Carbon Dioxide 22 (22-30) mmol/L BUN 10 (6-20) mg/dl Creatinine 0.7 (0.7-1.2) mg/dl Glucose 81 (70-105) mg/dL Calcium 9.0 (8.6-10.4) mg/dl Total Bilirubin 0.6 (0.0-1.0) mg/dL AST 16 (0-37) U/l ALT 15 (0-40) U/l Alkaline Phosphatase 125 H (39-117) U/L Total Protein 6.6 (5.9-8.4) gm/dL Albumin 3.5 (3.2-5.2) gm/dL Assessment and Plan (1) Acute diverticulitis of intestine Status: Resolved Assessment and plan: Patient is clinically stable Discontinue nasogastric tube . Start clear liquid diet Will check abdominal series in the morning Discontinue Dennis catheter . Check labs in the a.m. Current Visit: No (2) Bloody diarrhea Status: Resolved Current Visit: No (3) Intractable abdominal pain Status: Resolved Current Visit: No (4) Nausea and vomiting Status: Resolved Current Visit: Yes - Time Spent With Patient Total time spent is greater than 50% in coordination of care (as documented) at patient's floor/unit and/or counseling patient:
[2019-10-08] MEDS ORDERED: ONDANSETRON 4 MG ODT TABLET SL PRN (15:46)
[2019-10-08] MEDS: oxyCODONE HCL 5 MG TABLET PO PRN (17:34)
[2019-10-09] MEDS: oxyCODONE HCL 5 MG TABLET PO PRN ×5 (01:13→20:50)
[2019-10-09] MEDS: 0.9 % SODIUM CHLORIDE 1,000 ML IV SCH ×4 (04:46→23:51)
[2019-10-09] MEDS: METOCLOPRAMIDE 10 MG/2 ML VIAL IV SCH ×4 (05:57→23:51)
[2019-10-09] MEDS: metroNIDAZOLE 500 MG/100 ML BAG IV SCH ×4 (05:57→23:51)
[2019-10-09 06:37] LABS: Basophils # (Auto) 0.04 K/mcL (0.00-0.30); Basophils % (Auto) 0.4 % (0.0-2.0); Eosinophils # (Auto) 0.38 K/mcL (0.00-0.70); Eosinophils % (Auto) 3.4 % (0.0-7.0); Granulocytes % (Auto) 68.4 % (38.0-78.0); Hemoglobin 13.2 g/dL (13.7-17.5); Lymphocytes # (Auto) 2.15 K/mcL (1.50-4.80); Lymphocytes % (Auto) 19.5 % (15.5-49.0); Mean Cell Volume 87.1 fL (80.0-100.0); Mean Corpuscular HGB Conc 33.8 g/dL (31.0-36.0); Mean Platelet Volume 9.8 fL (7.4-10.4); Monocytes # (Auto) 0.92 K/mcL (0.10-0.90); Monocytes % (Auto) 8.3 % (1.0-12.0); Platelet Count 212 K/mcL (140-440); RBC 4.48 M/mcL (4.63-6.08); Red Cell Distribution Width 12.5 % (11.5-14.5)
[2019-10-09 07:03] LABS: ALT/SGPT 14 U/l (0-40); AST/SGOT 16 U/l (0-37); Albumin 3.3 gm/dL (3.2-5.2); Albumin/Globulin Ratio 1.1 (1.0-2.3); Alkaline Phosphatase 92 U/L (39-117); Bilirubin,Total 0.5 mg/dL (0.0-1.0); Blood Urea Nitrogen 8 mg/dl (6-20); Calcium 8.9 mg/dl (8.6-10.4); Carbon Dioxide 22 mmol/L (22-30); Chloride 101 mmol/L (96-108); Globulin 2.9 gm/dL (2.2-3.7); Glomerular Filtration Rate 125; Glucose 82 mg/dL (70-105); Lactate Dehydrogenase 171 U/L (94-250); Phosphorous 3.1 mg/dL (2.7-4.5); Triglycerides 133 mg/dl (<150); Uric Acid 7.7 mg/dL (2.5-8.0)
[2019-10-09 07:08] LABS: Bilirubin,Direct < 0.2 mg/dL (0.0-0.3)
[2019-10-09] MEDS: LEVOFLOXACIN 750 MG/150 ML BAG IV SCH (09:43)
[2019-10-09] MEDS ORDERED: SCOPOLAMINE 1 PATCH PATCH TOPICAL SCH (11:30)
[2019-10-09] MEDS: TAMSULOSIN 0.4 MG CAPSULE PO SCH ×2 (12:25→20:43)
[2019-10-09] MEDS: ONDANSETRON 4 MG/2 ML VIAL IV PRN (20:50)
[2019-10-09] MEDS: HYDROmorphone 1 MG/ML SYRINGE IV PRN (21:49)
[2019-10-10] MEDS: oxyCODONE HCL 5 MG TABLET PO PRN ×3 (02:41→13:24)
[2019-10-10] MEDS: ONDANSETRON 4 MG/2 ML VIAL IV PRN (02:42)
[2019-10-10] MEDS: 0.9 % SODIUM CHLORIDE 1,000 ML IV SCH ×2 (03:30→09:28)
[2019-10-10] MEDS: metroNIDAZOLE 500 MG/100 ML BAG IV SCH ×2 (05:44→11:38)
[2019-10-10] MEDS: METOCLOPRAMIDE 10 MG/2 ML VIAL IV SCH ×2 (05:44→11:55)
[2019-10-10 06:37] LABS: Basophils # (Auto) 0.03 K/mcL (0.00-0.30); Basophils % (Auto) 0.3 % (0.0-2.0); Eosinophils % (Auto) 2.8 % (0.0-7.0); Granulocytes % (Auto) 72.5 % (38.0-78.0); Hemoglobin 12.9 g/dL (13.7-17.5); Lymphocytes # (Auto) 1.84 K/mcL (1.50-4.80); Lymphocytes % (Auto) 17.1 % (15.5-49.0); Mean Corpuscular HGB Conc 33.9 g/dL (31.0-36.0); Monocytes # (Auto) 0.79 K/mcL (0.10-0.90); Monocytes % (Auto) 7.3 % (1.0-12.0); Platelet Count 225 K/mcL (140-440); RBC 4.42 M/mcL (4.63-6.08); Red Cell Distribution Width 12.3 % (11.5-14.5); WBC 10.8 K/mcL (4.50-11.00)
[2019-10-10 07:10] LABS: ALT/SGPT 17 U/l (0-40); AST/SGOT 21 U/l (0-37); Albumin 3.5 gm/dL (3.2-5.2); Albumin/Globulin Ratio 1.3 (1.0-2.3); Alkaline Phosphatase 100 U/L (39-117); Bilirubin,Direct < 0.2 mg/dL (0.0-0.3); Bilirubin,Total 0.4 mg/dL (0.0-1.0); Blood Urea Nitrogen 6 mg/dl (6-20); Calcium 8.8 mg/dl (8.6-10.4); Carbon Dioxide 22 mmol/L (22-30); Chloride 99 mmol/L (96-108); Globulin 2.8 gm/dL (2.2-3.7); Glomerular Filtration Rate 125; Glucose 86 mg/dL (70-105); Lactate Dehydrogenase 217 U/L (94-250); Phosphorous 3.1 mg/dL (2.7-4.5); Triglycerides 121 mg/dl (<150); Uric Acid 7.2 mg/dL (2.5-8.0)
[2019-10-10] MEDS: LEVOFLOXACIN 750 MG/150 ML BAG IV SCH (09:51)
[2019-10-10] MEDS ORDERED: 0.9 % SODIUM CHLORIDE 1,000 ML IV SCH (11:33)
--- NOTE | 2019-10-10 13:07 | Discharge Summary ---
Providers - Providers Patient information: Note initiated : 10/10/19 at 1:04 pm Service Date, if different from initiated Date: [] Patient: Oziel Kraft 39 y/o M admitted on 10/01/19 for nausea, vomit, bloody stools. Chief Complaint: [] Date of admission: 10/01/19 Discharge date: 10/10/19 Attending physician: Aaron Wilson Hospitalization Hospital Course: A 39-year-old male with chronic persistent diverticulitis. He was admitted on 30 September with an acute exacerbation with abdominal pain, nausea and abdominal distention. Says he had multiple episodes. He underwent sigmoid colectomy on 02 october. He had a small abscess on the lateral aspect of the colon. A primary anastomosis was placed and he was drained. He had slow return of intestinal activity but By October 21 . He started having flatus. Diet was advanced and he had a bowel movement today. He is otherwise stable and will be discharged home. Discharge diagnosis: acute diverticulitis with abscess Reason for admission: , acute diverticulitis with abscess Procedures: Sigmoid colectomy Pertinent studies/significant findings: CT of abdomen and pelvis with contrast Complications: None Exam Temp Pulse Resp BP Pulse Ox 98.0 F 71 20 146/90 94 10/10/19 08:00 10/10/19 08:00 10/10/19 08:00 10/10/19 08:00 10/10/19 08:00 - General physical appearance well developed, well nourished, no distress - Eyes PERRL, normal ocular movement - ENT normal pinna, normal nares, normal mucosa, no hearing loss, no congestion - Head Head exam IM: Present: atraumatic, normocephalic - Neck no masses, no bruits, trachea midline, no lymphadenopathy, no venous distension - Cardiovascular Cardiovascular exam IM: Present: normal rate and rhythm - Respiratory normal expansion, normal respiratory effort, clear to percussion, clear to auscultation - Abdomen Abdomen: Present: soft, tender (mild incisional tenderness), bowel sounds Hernia: Present: none - Genitourinary Present: normal penis with no external lesions - Integumentary Present: no rash, no growths, no abnormal pigmentation - Neurologic Present: normal coordination, normal sensation - Musculoskeletal Present: normal gait, normal posture - Psychiatric Present: oriented to time, oriented to person, oriented to place, speech is normal, memory intact Discharge Plan - Patient/Caregiver Discharge Instructions Activity: increase activity as tolerated Diet: Low Fiber Prescriptions: Ciprofloxacin [Cipro] 500 mg PO BID #30 tab Transmission Status: Pending to [id number] #[id number] metroNIDAZOLE [Metronidazole] 500 mg PO TID #40 tab Transmission Status: Pending to [facility] #[id number] oxyCODONE/APAP [Percocet 10-325Mg] 0 tab PO Q4HP PRN #40 tab PRN Reason: Pain Transmission Status: Sent to [facility] #[id number] - Follow up Plan Follow up with: No,PCP [Primary Care Provider] - Aaron Wilson MD [Physician] - Disposition: Home, Self-Care Prognosis: Good Rehab Potential: Good I certify that the patient requires SNF services.: No Overall status at discharge: patient is progressing back to baseline Pending Studies Resuscitation Status Full Code Diet Full Liquid Diet Start SunOctober 09 0741 Benzocaine (Cetacaine) 1 spray TOPICAL 3-4XD PRN PRN Reason: Pain Stop: 10/10/19 13:44 Last Admin: 10/04/19 17:20 Dose: 1 spray Documented by: CIERRA Hydromorphone HCl (Dilaudid) 1 mg IV Q2HP PRN; Protocol PRN Reason: Per Pain Protocol Last Admin: 10/09/19 21:49 Dose: 1 mg Documented by: Admin: 10/08/19 23:56 Dose: 1 mg Documented by: Admin: 10/08/19 22:01 Dose: 1 mg Documented by: Admin: 10/08/19 18:56 Dose: 1 mg Documented by: Admin: 10/08/19 15:33 Dose: 1 mg Documented by: Admin: 10/08/19 13:01 Dose: 1 mg Documented by: Admin: 10/08/19 09:41 Dose: 1 mg Documented by: Admin: 10/08/19 06:59 Dose: 1 mg Documented by: Admin: 10/08/19 04:59 Dose: 1 mg Documented by: Admin: 10/08/19 02:38 Dose: 1 mg Documented by: Admin: 10/08/19 00:01 Dose: 1 mg Documented by: Admin: 10/07/19 22:12 Dose: 1 mg Documented by: Admin: 10/07/19 20:10 Dose: 1 mg Documented by: Admin: 10/07/19 18:20 Dose: 1 mg Documented by: Admin: 10/07/19 15:57 Dose: 1 mg Documented by: Admin: 10/07/19 13:33 Dose: 1 mg Documented by: Admin: 10/07/19 11:30 Dose: 1 mg Documented by: Admin: 10/07/19 09:20 Dose: 1 mg Documented by: Admin: 10/07/19 06:00 Dose: 1 mg Documented by: Admin: 10/07/19 02:39 Dose: 1 mg Documented by: Admin: 10/07/19 00:09 Dose: 1 mg Documented by: Admin: 10/06/19 21:00 Dose: 1 mg Documented by: Admin: 10/06/19 18:50 Dose: 1 mg Documented by: Admin: 10/06/19 16:35 Dose: 1 mg Documented by: Admin: 10/06/19 13:58 Dose: 1 mg Documented by: Admin: 10/06/19 10:39 Dose: 1 mg Documented by: Admin: 10/06/19 08:26 Dose: 1 mg Documented by: Admin: 10/06/19 05:35 Dose: 1 mg Documented by: Admin: 10/06/19 03:01 Dose: 1 mg Documented by: Admin: 10/06/19 00:09 Dose: 1 mg Documented by: Admin: 10/05/19 22:08 Dose: 1 mg Documented by: Admin: 10/05/19 20:08 Dose: 1 mg Documented by: Admin: 10/05/19 18:02 Dose: 1 mg Documented by: Admin: 10/05/19 16:04 Dose: 1 mg Documented by: Admin: 10/05/19 14:03 Dose: 1 mg Documented by: Admin: 10/05/19 11:19 Dose: 1 mg Documented by: Admin: 10/05/19 08:42 Dose: 1 mg Documented by: Admin: 10/05/19 06:31 Dose: 1 mg Documented by: Admin: 10/05/19 04:11 Dose: 1 mg Documented by: Admin: 10/05/19 02:06 Dose: 1 mg Documented by: Admin: 10/05/19 00:05 Dose: 1 mg Documented by: Admin: 10/04/19 21:42 Dose: 1 mg Documented by: Admin: 10/04/19 19:30 Dose: 1 mg Documented by: Admin: 10/04/19 17:31 Dose: 1 mg Documented by: Admin: 10/04/19 14:43 Dose: 1 mg Documented by: Admin: 10/04/19 12:35 Dose: 1 mg Documented by: Admin: 10/04/19 10:25 Dose: 1 mg Documented by: Admin: 10/04/19 08:06 Dose: 1 mg Documented by: Admin: 10/04/19 05:57 Dose: 1 mg Documented by: Admin: 10/04/19 04:09 Dose: 1 mg Documented by: Admin: 10/04/19 02:10 Dose: 1 mg Documented by: Admin: 10/03/19 22:36 Dose: 1 mg Documented by: Admin: 10/03/19 20:07 Dose: 1 mg Documented by: Admin: 10/03/19 18:11 Dose: 1 mg Documented by: Admin: 10/03/19 16:23 Dose: 1 mg Documented by: Admin: 10/03/19 14:00 Dose: 1 mg Documented by: Admin: 10/03/19 12:12 Dose: 1 mg Documented by: FITZ Levofloxacin (Levaquin) 750 mg in 150 mls @ 100 mls/hr IV Q24H LOR Last Infusion: 10/10/19 12:19 Dose: 0 mls/hr Documented by: Admin: 10/10/19 09:51 Dose: 100 mls/hr Documented by: Infusion: 10/09/19 14:44 Dose: 100 mls/hr Documented by: Admin: 10/09/19 09:43 Dose: 100 mls/hr Documented by: Infusion: 10/08/19 17:19 Dose: 100 mls/hr Documented by: Admin: 10/08/19 09:27 Dose: 100 mls/hr Documented by: Infusion: 10/07/19 14:46 Dose: 0 mls/hr Documented by: Admin: 10/07/19 09:25 Dose: 100 mls/hr Documented by: Infusion: 10/06/19 13:22 Dose: 0 mls/hr Documented by: Admin: 10/06/19 10:43 Dose: 100 mls/hr Documented by: Infusion: 10/05/19 10:15 Dose: 0 mls/hr Documented by: Admin: 10/05/19 08:42 Dose: 100 mls/hr Documented by: Infusion: 10/04/19 10:21 Dose: 0 mls/hr Documented by: Admin: 10/04/19 08:22 Dose: 100 mls/hr Documented by: CIERRA Metronidazole (Flagyl) 500 mg in 100 mls @ 100 mls/hr IV Q6H LOR; Protocol Last Infusion: 10/10/19 12:51 Dose: 0 mls/hr Documented by: [email or web address] Admin: 10/10/19 11:38 Dose: 100 mls/hr Documented by: [email or web address] Infusion: 10/10/19 06:58 Dose: 0 mls/hr Documented by: Admin: 10/10/19 05:44 Dose: 100 mls/hr Documented by: Infusion: 10/10/19 00:51 Dose: 100 mls/hr Documented by: Admin: 10/09/19 23:51 Dose: 100 mls/hr Documented by: Infusion: 10/09/19 18:47 Dose: 100 mls/hr Documented by: Admin: 10/09/19 17:47 Dose: 100 mls/hr Documented by: Infusion: 10/09/19 14:43 Dose: 100 mls/hr Documented by: Admin: 10/09/19 12:25 Dose: 100 mls/hr Documented by: Infusion: 10/09/19 11:02 Dose: 100 mls/hr Documented by: Admin: 10/09/19 05:57 Dose: 100 mls/hr Documented by: Infusion: 10/09/19 00:31 Dose: 100 mls/hr Documented by: Admin: 10/08/19 23:31 Dose: 100 mls/hr Documented by: Infusion: 10/08/19 18:28 Dose: 0 mls/hr Documented by: Admin: 10/08/19 17:28 Dose: 100 mls/hr Documented by: Infusion: 10/08/19 14:00 Dose: 100 mls/hr Documented by: Admin: 10/08/19 12:04 Dose: 100 mls/hr Documented by: Infusion: 10/08/19 10:23 Dose: 100 mls/hr Documented by: Admin: 10/08/19 05:54 Dose: 100 mls/hr Documented by: Infusion: 10/08/19 01:04 Dose: 100 mls/hr Documented by: Admin: 10/08/19 00:04 Dose: 100 mls/hr Documented by: Infusion: 10/07/19 18:30 Dose: 100 mls/hr Documented by: Admin: 10/07/19 17:30 Dose: 100 mls/hr Documented by: Infusion: 10/07/19 14:45 Dose: 100 mls/hr Documented by: Admin: 10/07/19 11:32 Dose: 100 mls/hr Documented by: Infusion: 10/07/19 11:26 Dose: 100 mls/hr Documented by: Admin: 10/07/19 06:01 Dose: 100 mls/hr Documented by: Infusion: 10/07/19 01:09 Dose: 100 mls/hr Documented by: Admin: 10/07/19 00:09 Dose: 100 mls/hr Documented by: Infusion: 10/06/19 19:09 Dose: 100 mls/hr Documented by: Admin: 10/06/19 18:09 Dose: 100 mls/hr Documented by: Infusion: 10/06/19 15:57 Dose: 0 mls/hr Documented by: Admin: 10/06/19 12:31 Dose: 100 mls/hr Documented by: Infusion: 10/06/19 07:02 Dose: 100 mls/hr Documented by: Admin: 10/06/19 06:02 Dose: 100 mls/hr Documented by: Infusion: 10/06/19 00:46 Dose: 0 mls/hr Documented by: Admin: 10/05/19 23:37 Dose: 100 mls/hr Documented by: Infusion: 10/05/19 19:23 Dose: 0 mls/hr Documented by: Admin: 10/05/19 18:06 Dose: 100 mls/hr Documented by: Infusion: 10/05/19 13:14 Dose: 0 mls/hr Documented by: Admin: 10/05/19 11:23 Dose: 100 mls/hr Documented by: Infusion: 10/05/19 06:39 Dose: 100 mls/hr Documented by: Admin: 10/05/19 05:39 Dose: 100 mls/hr Documented by: Infusion: 10/05/19 00:58 Dose: 100 mls/hr Documented by: JORGE ALBERTOUVE Admin: 10/04/19 23:58 Dose: 100 mls/hr Documented by: JORGE ALBERTOUVE Infusion: 10/04/19 18:25 Dose: 100 mls/hr Documented by: JORGE ALBERTOUVE Admin: 10/04/19 17:25 Dose: 100 mls/hr Documented by: Infusion: 10/04/19 15:27 Dose: 100 mls/hr Documented by: Admin: 10/04/19 12:37 Dose: 100 mls/hr Documented by: Infusion: 10/04/19 08:10 Dose: 0 mls/hr Documented by: Admin: 10/04/19 05:57 Dose: 100 mls/hr Documented by: Infusion: 10/04/19 00:32 Dose: 100 mls/hr Documented by: Admin: 10/03/19 23:32 Dose: 100 mls/hr Documented by: Infusion: 10/03/19 19:11 Dose: 100 mls/hr Documented by: Admin: 10/03/19 18:11 Dose: 100 mls/hr Documented by: Infusion: 10/03/19 13:12 Dose: 0 mls/hr Documented by: Admin: 10/03/19 12:12 Dose: 100 mls/hr Documented by: FITZ Acetaminophen ([facility]) 1,000 mg in 100 mls @ 200 mls/hr IV Q6HP PRN; Protocol PRN Reason: PAIN/FEVER > 101 Last Infusion: 10/06/19 13:23 Dose: 0 mls/hr Documented by: Admin: 10/06/19 08:34 Dose: 200 mls/hr Documented by: Infusion: 10/05/19 20:09 Dose: 0 mls/hr Documented by: Admin: 10/05/19 19:36 Dose: 200 mls/hr Documented by: Infusion: 10/04/19 17:29 Dose: 0 mls/hr Documented by: Admin: 10/04/19 16:42 Dose: 200 mls/hr Documented by: Infusion: 10/04/19 04:45 Dose: 0 mls/hr Documented by: Admin: 10/04/19 04:10 Dose: 200 mls/hr Documented by: Infusion: 10/03/19 22:00 Dose: 0 mls/hr Documented by: Admin: 10/03/19 21:27 Dose: 200 mls/hr Documented by: ROB Sodium Chloride (Sodium Chloride 0.9%) 1,000 mls @ 50 mls/hr IV .Q20H LOR Last Admin: 10/10/19 11:44 Dose: 50 mls/hr Documented by: [email or web address] Metoclopramide HCl (Reglan) 10 mg IV Q6 LOR Last Admin: 10/10/19 11:55 Dose: 10 mg Documented by: Admin: 10/10/19 05:44 Dose: 10 mg Documented by: Admin: 10/09/19 23:51 Dose: 10 mg Documented by: Admin: 10/09/19 17:47 Dose: 10 mg Documented by: Admin: 10/09/19 12:24 Dose: 10 mg Documented by: Admin: 10/09/19 05:57 Dose: 10 mg Documented by: Admin: 10/08/19 23:30 Dose: 10 mg Documented by: Admin: 10/08/19 17:28 Dose: 10 mg Documented by: Admin: 10/08/19 13:01 Dose: 10 mg Documented by: Admin: 10/08/19 09:30 Dose: 10 mg Documented by: VIELKA Ondansetron HCl (Zofran) 4 mg IV Q4-6HP PRN PRN Reason: Nausea And Vomiting Last Admin: 10/10/19 02:42 Dose: 4 mg Documented by: Admin: 10/09/19 20:50 Dose: 4 mg Documented by: Admin: 10/08/19 15:34 Dose: 4 mg Documented by: Admin: 10/08/19 06:59 Dose: 4 mg Documented by: Admin: 10/08/19 00:01 Dose: 4 mg Documented by: Admin: 10/07/19 20:20 Dose: 4 mg Documented by: Admin: 10/07/19 15:53 Dose: 4 mg Documented by: Admin: 10/07/19 11:42 Dose: 4 mg Documented by: Admin: 10/07/19 05:59 Dose: 4 mg Documented by: Admin: 10/07/19 00:21 Dose: 4 mg Documented by: Admin: 10/06/19 19:57 Dose: 4 mg Documented by: Admin: 10/06/19 15:54 Dose: 4 mg Documented by: Admin: 10/06/19 11:42 Dose: 4 mg Documented by: Admin: 10/06/19 00:09 Dose: 4 mg Documented by: Admin: 10/05/19 20:13 Dose: 4 mg Documented by: Admin: 10/05/19 15:43 Dose: 4 mg Documented by: Admin: 10/05/19 05:40 Dose: 4 mg Documented by: Admin: 10/03/19 18:19 Dose: 4 mg Documented by: [email or web address] Ondansetron HCl (Zofran Odt) 4 mg SL Q4HP PRN PRN Reason: Nausea And Vomiting Last Admin: 10/09/19 08:08 Dose: 4 mg Documented by: VIELKA Oxycodone HCl (Roxicodone) 10 mg PO Q4HP PRN; Protocol PRN Reason: Per Pain Protocol Last Admin: 10/10/19 06:57 Dose: 10 mg Documented by: Admin: 10/10/19 02:41 Dose: 10 mg Documented by: Admin: 10/09/19 20:50 Dose: 10 mg Documented by: Admin: 10/09/19 16:49 Dose: 10 mg Documented by: Admin: 10/09/19 12:24 Dose: 10 mg Documented by: Admin: 10/09/19 08:06 Dose: 10 mg Documented by: Admin: 10/09/19 01:13 Dose: 10 mg Documented by: Admin: 10/08/19 17:34 Dose: 10 mg Documented by: VIELKA Promethazine HCl (Phenergan) 25 mg IV Q4-6HP PRN PRN Reason: Nausea And Vomiting Last Admin: 10/07/19 22:12 Dose: 25 mg Documented by: Admin: 10/07/19 02:39 Dose: 25 mg Documented by: Admin: 10/06/19 21:05 Dose: 25 mg Documented by: Admin: 10/06/19 03:08 Dose: 25 mg Documented by: Admin: 10/05/19 09:09 Dose: 25 mg Documented by: REKHA Scopolamine (Transderm-Scop) 1 patch TOPICAL Q72H LOR Last Admin: 10/09/19 12:25 Dose: 1 patch Documented by: VIELKA Tamsulosin HCl (Flomax) 0.4 mg PO HS LOR Last Admin: 10/09/19 20:43 Dose: Not Given Documented by: Admin: 10/09/19 12:25 Dose: 0.4 mg Documented by: VIELKA Shift Summary 10/10/19 04:31 Shift Summary by Lesley Davis Pt is A&Ox4. SBP running in the 150s-160s. Other VSS on RA. Stands at bedside to void per urinal. SBA when ambulating in the hallway. Scope patch to left ear (placed yesterday). Midline incision to abdomen w/Tegaderm. WES x1 to left, lower abdomen. (Dressings to abdomen were changed last night). IV to right hand w/NS @ 150 ml/hr. Pt received Roxicodone x2 and Dilaudid x1 for pain. Zofran was given x2. No BM but patient has active bowel tones & is passing flatus. Will update with verbal report. Initialized on 10/10/19 04:31 - END OF NOTE
[2019-10-10] MEDS: HYDROmorphone 1 MG/ML SYRINGE IV PRN (13:18)
[2019-10-10] MEDS ORDERED: FUROSEMIDE 40 MG/4 ML VIAL IV ONE (13:30)
== END 2019-10-10 17:20 | disposition home or self-care (01) | DRG 329 ==
LOC: ED 18:01 → MEDSUR 18:01 → OBSVTOIN 19:20 → MEDSUR 10-02 13:41
PROVIDERS: ADMIT Family Medicine Adult Medicine; ATTEND Family Medicine Adult Medicine